=== PATIENT | male | born 1935 | race Caucasian/White ===

== ENCOUNTER 2016-11-06 14:43 | Emergency (ER) | payer MEDICARE, MEDICAID ==
[2016-11-06] MEDS ORDERED: NS 0.9% 1000 ML* 3,000 ML IV ONE (15:53)
[2016-11-06] MEDS ORDERED: Albuterol 2.5 MG/3 ML NEB.SOL* (0.083%) INH ONE (15:53)
[2016-11-06] MEDS ORDERED: Dexamethasone IV* 4 MG/ML 1 ML (4 MG) IV SLOW PU ONE (15:53)
[2016-11-06 16:16] LABS: PCO2 Arterial 45 mmHg (35-45)
--- NOTE | 2016-11-06 16:46 | RAD ---
INDICATION: Chest pain and shortness of breath. COMPARISON: Comparison is made with a prior chest x-ray study from October 16, 2014. TECHNIQUE: A portable view of the chest was obtained. FINDINGS: Cardiac and mediastinal contours appear to be within normal limits. The lungs are slightly hyperinflated and clear. No pleural effusion is seen. Note is made of multiple old bilateral rib fractures. IMPRESSION: NO EVIDENCE FOR ACUTE DISEASE.
[2016-11-06 17:07] LABS: Hematocrit 46 % (42-52); Hemoglobin 15.4 g/dl (14.0-18.0); Mean Corpuscular HGB Conc 34 g/dl (31-36); Mean Corpuscular Hemoglobin 31 pg (27-31); Mean Corpuscular Volume 93 fL (80-94); Mean Platelet Volume 8 um3 (7.4-10.4); Red Blood Count 4.97 10^6/ul (4.0-5.4); Red Cell Distribution Width 14 % (10.5-15); White Blood Count 9.5 10^3/ul (3.5-10.8)
[2016-11-06 17:22] LABS: BUN/Creatinine Ratio 13.3 (8-20); C Reactive Protein 1.13 mg/L (< 5.00); Calcium 9.7 mg/dL (8.6-10.3); EGFR African American 74.5 (>60); Globulin 3.3 g/dL (2-4); Potassium 4.2 mmol/L (3.5-5.0); Total Protein 7.3 g/dL (6.4-8.9)
[2016-11-06 17:24] LABS: Troponin I 0.02 ng/mL (<0.04)
[2016-11-06 18:42] VITALS: BP 162/80
--- NOTE | 2016-11-06 18:50 | ED ---
Nehemias Alvarado Alfonso, scribed for Eileen Go MD on 11/06/16 at 1559 . Shortness of Breath - HPI Summary HPI Summary: This patient is an 81 year old M presenting to [facility] c/o SOB since this morning. He states his "asthma has been bothering" him today and this was dyspnea at rest. Sx alleviated by albuterol nebulizer treatment prior to arrival. PMHX of COPD and asthma. Pt walked to his pharmacy without a problem today, then was in his doctor's office (Dr. Landa) and was given a neb for the dyspnea with improvement. Dr. Landa's office were concerned about bradycardia so he was sent by EMS for further evaluation. Pt denies chest pain, no calf pain , no abd pain. - History of Current Complaint Chief Complaint: EDShortnessOfBreath Hx Obtained From: Patient Onset/Duration: Sudden Onset, Lasting Hours - Earlier today, Resolved - After albuterol treatment. Timing: Constant Current Severity: Moderate Dyspnea At: Rest Aggrevating Factors: Nothing Alleviating Factors: EMS Tx Associated Signs & Symptoms: Cough (Nonproductive) - Allergy/Home Medications Allergies/Adverse Reactions: Allergies Allergy/AdvReac Type Severity Reaction Status Date / Time No Known Allergies Allergy Verified 10/16/14 20:09 PMH/Surg Hx/FS Hx/Imm Hx Previously Healthy: No Endocrine/Hematology History: Denies: Hx Sickle Cell Disease Cardiovascular History: Reports: Hx Hypertension - NO MEDS, Hx Valvular Heart Disease, Other Cardiovascular Problems/Disorders - HEART MURMUR, HAD FOR YRS Respiratory History: Reports: Hx Asthma - RESCUE INHALER, Hx Chronic Obstructive Pulmonary Disease (COPD) Denies: Other Respiratory Problems/Disorders GI History: Denies: Other GI Disorders History: Reports: Other Problems/Disorders - urinary retention, bladder growths Musculoskeletal History: Reports: Hx Arthritis Sensory History: Reports: Hx Cataracts - REMOVED Denies: Hx Contacts or Glasses, Hx Hearing Aid Opthamlomology History: Reports: Hx Cataracts - REMOVED Denies: Hx Contacts or Glasses Neurological History: Reports: Other Neuro Impairments/Disorders - OCCASIONAL DIZZINESS, NONE LATELY - Surgical History Surgery Procedure, Year, and Place: BLADDER RESECTION. 2013 BILATERAL EYES CATARACT EXTRACTION WITH IOL IMPLANTS, [facility]. LEFT INGUINAL HERNIA REPAIR, [facility] Hx Anesthesia Reactions: No - Immunization History Date of Tetanus Vaccine: Unk Date of Influenza Vaccine: Unk Infectious Disease History: Denies: Traveled Outside the [place] in Last 30 Days - Family History Known Family History: Positive: Other - Father had throat cancer - Social History Alcohol Use: None Substance Use Type: Reports: None Hx Tobacco Use: Yes Smoking Status (MU): Light Every Day Tobacco Smoker Amount Used/How Often: 1 PPD Length of Time of Smoking/Using Tobacco: 60 YEARS Have You Smoked in the Last Year: Yes Review of Systems Constitutional: Negative Eyes: Negative ENT: Negative Cardiovascular: Negative Positive: Shortness Of Breath, Cough Gastrointestinal: Negative Genitourinary: Negative Musculoskeletal: Negative Skin: Negative Neurological: Negative Psychological: Normal All Other Systems Reviewed And Are Negative: Yes Physical Exam Triage Information Reviewed: Yes Vital Signs On Initial Exam: Initial Vitals Temp Pulse Resp BP Pulse Ox 98.0 F 56 16 168/92 94 11/06/16 14:51 11/06/16 14:51 11/06/16 14:51 11/06/16 14:51 11/06/16 14:51 Vital Signs Reviewed: Yes Appearance: Positive: No Pain Distress, Well-Nourished, Ill-Appearing Skin: Positive: Warm, Dry Eyes: Positive: Conjunctiva Clear ENT: Positive: Normal ENT inspection Neck: Positive: Supple, Nontender, No Lymphadenopathy Respiratory/Lung Sounds: Positive: Decreased Breath Sounds, Other - Scattered wheezing Cardiovascular: Positive: RRR, Pulses are Symmetrical in both Upper and Lower Extremities, Other - Brisk capillary refill. Negative: Murmur Abdomen Description: Positive: Nontender, No Organomegaly, Soft. Negative: Distended, Guarding Bowel Sounds: Positive: Present Musculoskeletal: Positive: Strength/ROM Intact. Negative: Edema Left, Edema Right Neurological: Positive: Alert, Oriented to Person Place, Time, Other - Muscle tone normal. Negative: Facial Droop, Focal Deficit @, Slurred Speech Psychiatric: Positive: Normal - [place] Coma Scale Coma Scale Total: 15 Diagnostics - Vital Signs Vital Signs Temp Pulse Resp BP Pulse Ox 11/06/16 15:16 98.0 F 56 16 168/92 96 11/06/16 14:51 98.0 F 56 16 168/92 94 - Laboratory Lab Results: Lab Results 11/06/16 11/06/16 11/06/16 Range/Units 16:05 16:55 16:55 WBC 9.5 (3.5-10.8) 10^3/ul RBC 4.97 (4.0-5.4) 10^6/ul Hgb 15.4 (14.0-18.0) g/dl Hct 46 (42-52) % MCV 93 (80-94) fL MCH 31 (27-31) pg MCHC 34 (31-36) g/dl RDW 14 (10.5-15) % Plt Count 168 (150-450) 10^3/ul MPV 8 (7.4-10.4) um3 Neut % (Auto) 69.5 (38-83) % Lymph % (Auto) 13.2 L (25-47) % [place] % (Auto) 7.9 (1-9) % Eos % (Auto) 8.5 H (0-6) % Baso % (Auto) 0.9 (0-2) % Absolute Neuts (auto) 6.6 (1.5-7.7) 10^3/ul Absolute Lymphs (auto) 1.3 (1.0-4.8) 10^3/ul Absolute Monos (auto) 0.7 (0-0.8) 10^3/ul Absolute Eos (auto) 0.8 H (0-0.6) 10^3/ul Absolute Basos (auto) 0.1 (0-0.2) 10^3/ul Absolute Nucleated RBC 0 10^3/ul Nucleated RBC % 0 INR (Anticoag Therapy) (0.89-1.11) APTT (26.0-36.3) seconds ABG pH 7.41 (7.35-7.45) ABG pCO2 45 (35-45) mmHg ABG pO2 67 L (80-100) mmHg ABG HCO3 27.2 (19-31) mmol/L ABG O2 Saturation 95.5 (95-98) % ABG Base Excess 3.1 H (-2.0-2.0) Sodium 138 (133-145) mmol/L Potassium 4.2 (3.5-5.0) mmol/L Chloride 104 (101-111) mmol/L Carbon Dioxide 31 (22-32) mmol/L Anion Gap 3 (2-11) mmol/L BUN 16 (6-24) mg/dL Creatinine 1.20 H (0.67-1.17) mg/dL Est GFR ( Amer) 74.5 (>60) Est GFR (Non-Af Amer) 58.0 (>60) BUN/Creatinine Ratio 13.3 (8-20) Glucose 101 H (70-100) mg/dL Lactic Acid (0.5-2.0) mmol/L Calcium 9.7 (8.6-10.3) mg/dL Total Bilirubin 1.00 (0.2-1.0) mg/dL AST 14 (13-39) U/L ALT 11 (7-52) U/L Alkaline Phosphatase 60 (34-104) U/L Total Creatine Kinase 35 (10-223) U/L CK-MB (CK-2) 2.0 (0.6-6.3) ng/mL Troponin I 0.02 (<0.04) ng/mL C-Reactive Protein 1.13 (< 5.00) mg/L B-Natriuretic Peptide ( - 100) pg/mL Total Protein 7.3 (6.4-8.9) g/dL Albumin 4.0 (3.2-5.2) g/dL Globulin 3.3 (2-4) g/dL Albumin/Globulin Ratio 1.2 (1-3) 11/06/16 11/06/16 11/06/16 Range/Units 16:55 16:55 16:55 WBC (3.5-10.8) 10^3/ul RBC (4.0-5.4) 10^6/ul Hgb (14.0-18.0) g/dl Hct (42-52) % MCV (80-94) fL MCH (27-31) pg MCHC (31-36) g/dl RDW (10.5-15) % Plt Count (150-450) 10^3/ul MPV (7.4-10.4) um3 Neut % (Auto) (38-83) % Lymph % (Auto) (25-47) % [place] % (Auto) (1-9) % Eos % (Auto) (0-6) % Baso % (Auto) (0-2) % Absolute Neuts (auto) (1.5-7.7) 10^3/ul Absolute Lymphs (auto) (1.0-4.8) 10^3/ul Absolute Monos (auto) (0-0.8) 10^3/ul Absolute Eos (auto) (0-0.6) 10^3/ul Absolute Basos (auto) (0-0.2) 10^3/ul Absolute Nucleated RBC 10^3/ul Nucleated RBC % INR (Anticoag Therapy) 1.20 H (0.89-1.11) APTT 36.9 H (26.0-36.3) seconds ABG pH (7.35-7.45) ABG pCO2 (35-45) mmHg ABG pO2 (80-100) mmHg ABG HCO3 (19-31) mmol/L ABG O2 Saturation (95-98) % ABG Base Excess (-2.0-2.0) Sodium (133-145) mmol/L Potassium (3.5-5.0) mmol/L Chloride (101-111) mmol/L Carbon Dioxide (22-32) mmol/L Anion Gap (2-11) mmol/L BUN (6-24) mg/dL Creatinine (0.67-1.17) mg/dL Est GFR ( Amer) (>60) Est GFR (Non-Af Amer) (>60) BUN/Creatinine Ratio (8-20) Glucose (70-100) mg/dL Lactic Acid 0.9 (0.5-2.0) mmol/L Calcium (8.6-10.3) mg/dL Total Bilirubin (0.2-1.0) mg/dL AST (13-39) U/L ALT (7-52) U/L Alkaline Phosphatase (34-104) U/L Total Creatine Kinase (10-223) U/L CK-MB (CK-2) (0.6-6.3) ng/mL Troponin I (<0.04) ng/mL C-Reactive Protein (< 5.00) mg/L B-Natriuretic Peptide 38 ( - 100) pg/mL Total Protein (6.4-8.9) g/dL Albumin (3.2-5.2) g/dL Globulin (2-4) g/dL Albumin/Globulin Ratio (1-3) Result Diagrams: 11/06/16 16:55 11/06/16 16:55 Lab Statement: Any lab studies that have been ordered have been reviewed, and results considered in the medical decision making process. - Radiology CXR Xray Interpretation: No Acute Changes - NO EVIDENCE FOR ACUTE DISEASE Radiology Interpretation Completed By: Radiologist Re-Evaluation - Re-Evaluation First Eval Re-Evaluation Time: 17:52 Change: Improved Comment: Doing fine. No respiratory distress. Wants to go home. Second Eval Re-Evaluation Time: 18:14 Change: Improved Comment: Discussed results of labs and D/C plan with patient. Course/Dx - Course Assessment/Plan: Pt is an 81 y/o M c/o SOB characterized as dyspnea at rest. Sx alleviated by albuterol nebulizer treatment prior to arrival. Creatinine 1.60. PMHX of COPD and asthma. CXR reveals no acute findings. Pt received Albuterol, Decadron IV and NS in the course of the ED. Troponin is neg and EKG show SR, 62 , PAC's, nl AVIVCT, no acute changes, no change from prior. Pt will be D/C to home with Dx of bradycardia and COPD. Pt understands and agrees and will follow up with Dr. Landa. Allergies noted. Pt medications reviewed this visit. - Diagnoses Provider Diagnoses: COPD (chronic obstructive pulmonary disease), Bradycardia Discharge - Discharge Plan Condition: Stable Disposition: HOME Patient Education Materials: COPD (Chronic Obstructive Pulmonary Disease) (ED) , Bradycardia (ED) Referrals: Chago Landa MD [Primary Care Provider] - 3 Days Additional Instructions: RETURN TO ED FOR ANY NEW OR WORSENING SYMPTOMS. The documentation as recorded by the Nehemias alva Alfonso accurately reflects the service I personally performed and the decisions made by , Eileen Go MD.
== END 2016-11-06 18:41 | disposition home or self-care (01) ==
LOC: ED 14:43
DX: J44.9 Chronic obstructive pulmonary disease, unspecified (principal); R00.1 Bradycardia, unspecified; R05 Cough; I10 Essential (primary) hypertension; Z98.42 Cataract extraction status, left eye; Z98.41 Cataract extraction status, right eye; Z96.1 Presence of intraocular lens; F17.210 Nicotine dependence, cigarettes, uncomplicated
CPT/HCPCS: 36415; 36600; 71010; 80053; 82550; 82553; 82803; 83605; 83880; 84484; 85025; 85610; 85730; 86140; 93005; 94640; 96374; 99282; J1100

== ENCOUNTER → 2016-11-15 16:34 | Emergency (ER) | payer MEDICARE, MEDICAID ==
[~2016-11-15 16:34] MED LIST: Famotidine IV* 10 MG/ML 2 ML (20 mg) IV SLOW PU ONE; Meclizine TAB* 12.5 MG PO ONE; Ondansetron INJ* 2 MG/ML VIAL IV ONE
[2016-11-15 17:05] LABS: Hematocrit 46 % (42-52); Hemoglobin 15.2 g/dl (14.0-18.0); Mean Corpuscular HGB Conc 33 g/dl (31-36); Mean Corpuscular Hemoglobin 31 pg (27-31); Mean Corpuscular Volume 92 fL (80-94); Mean Platelet Volume 8 um3 (7.4-10.4); Red Blood Count 4.96 10^6/ul (4.0-5.4); Red Cell Distribution Width 14 % (10.5-15); White Blood Count 5.2 10^3/ul (3.5-10.8)
[2016-11-15 17:17] LABS: ALT 13 U/L (7-52); AST 13 U/L (13-39); Albumin 3.8 g/dL (3.2-5.2); Alkaline Phosphatase 62 U/L (34-104); Anion Gap 5 mmol/L (2-11); BUN/Creatinine Ratio 10.6 (8-20); Blood Urea Nitrogen 13 mg/dL (6-24); C Reactive Protein 5.61 mg/L (< 5.00); CO2 Carbon Dioxide 25 mmol/L (22-32); Calcium 9.4 mg/dL (8.6-10.3); Chloride 103 mmol/L (101-111); Creatine Kinase 21 U/L (10-223); EGFR African American 72.5 (>60); EGFR Non-African American 56.3 (>60); Globulin 3.2 g/dL (2-4); Glucose 142 mg/dL (70-100); Potassium 3.9 mmol/L (3.5-5.0); Sodium 133 mmol/L (133-145)
[2016-11-15 17:19] LABS: Troponin I 0.03 ng/mL (<0.04)
[2016-11-15 17:31] LABS: Alcohol < 10 mg/dL (<10)
[2016-11-15 17:41] LABS: TSH (Thyroid Stimulating Horm) 0.66 mcIU/mL (0.34-5.60)
--- NOTE | 2016-11-15 17:58 | RAD ---
INDICATION: Dizziness COMPARISON: CT of the brain dated September 21, 2012 TECHNIQUE: Contiguous axial sections of the brain were obtained from the skull base to the vertex without contrast. FINDINGS: The ventricles, cisterns and sulci exhibit symmetric involutional changes similar in appearance to the previous CT examination. There is mild to moderate periventricular and subcortical white matter hypoattenuation most consistent with chronic microvascular disease and similar in appearance to the previous CT examination. Otherwise the garcia-white matter differentiation is adequately maintained and there is no sulcal effacement. No significant focal abnormality or mass effect is present. There is no evidence for intracranial hemorrhage. No significant focal osseous abnormality is present. There is mild paranasal sinus mucosal thickening of the visualized right maxillary sinus. The mastoid air cells are adequately aerated. IMPRESSION: Stable age-appropriate chronic findings as described above.
--- NOTE | 2016-11-15 18:33 | RAD ---
INDICATION: Dizziness and nausea COMPARISON: Similar chest x-ray dated November 06, 2016 TECHNIQUE: PA and lateral views of the chest were obtained. FINDINGS: The heart and mediastinum are normal in size and contour. The lungs are grossly clear. There is no evidence of large pleural effusion. Healed rib fractures are noted on the right side similar in appearance to the previous chest x-ray. There is no radiographic evidence of free air beneath the diaphragm IMPRESSION: No radiographic evidence of acute cardiopulmonary disease.
[2016-11-15 18:46] VITALS: BP 140/64
--- NOTE | 2016-11-16 12:18 | ED ---
I, Oh,Soelzbieta, scribed for Manpreet Joel MD on 11/15/16 at 1649 . Complex/Multi-Sys Presentation - HPI Summary HPI Summary: This 81 y/o male presents to ED for dizziness since this morning. Positive n/v and "sour stomach". Change in position makes dizziness worse. Temperature of 101.1 F is noted at triage. Pt is reported to be noncompliant with his medications. PMHx includes asthma, COPD, and bladder infection. Pt is currently on unspecified abx for unknown infection. Pt also reports that some growth was removed from his left sided neck. - History Of Current Complaint Time Seen by Provider: 11/15/16 16:36 Hx Obtained From: Patient, Medical Records Onset/Duration: Sudden Onset, Resolved Timing: Intermittent, Lasting:, Seconds Associated Signs And Symptoms: Positive: Nausea, Vomiting, Abdominal Pain - "sour stomach", Fever - Allergies/Home Medications Allergies/Adverse Reactions: Allergies Allergy/AdvReac Type Severity Reaction Status Date / Time No Known Allergies Allergy Verified 11/15/16 16:44 PMH/Surg Hx/FS Hx/Imm Hx Endocrine/Hematology History: Denies: Hx Sickle Cell Disease Cardiovascular History: Reports: Hx Hypertension - NO MEDS, Hx Valvular Heart Disease, Other Cardiovascular Problems/Disorders - HEART MURMUR, HAD FOR YRS Respiratory History: Reports: Hx Asthma - RESCUE INHALER, Hx Chronic Obstructive Pulmonary Disease (COPD) Denies: Other Respiratory Problems/Disorders GI History: Denies: Other GI Disorders History: Reports: Other Problems/Disorders - urinary retention, bladder growths Musculoskeletal History: Reports: Hx Arthritis Sensory History: Reports: Hx Cataracts - REMOVED Denies: Hx Contacts or Glasses, Hx Hearing Aid Opthamlomology History: Reports: Hx Cataracts - REMOVED Denies: Hx Contacts or Glasses Neurological History: Reports: Other Neuro Impairments/Disorders - OCCASIONAL DIZZINESS, NONE LATELY - Surgical History Surgery Procedure, Year, and Place: BLADDER RESECTION. 2013 BILATERAL EYES CATARACT EXTRACTION WITH IOL IMPLANTS, [facility]. LEFT INGUINAL HERNIA REPAIR, [facility] Hx Anesthesia Reactions: No - Immunization History Date of Tetanus Vaccine: Unk Date of Influenza Vaccine: Unk - Family History Known Family History: Positive: Other - Father had throat cancer - Social History Alcohol Use: None Hx Substance Use: No Substance Use Type: Reports: None Hx Tobacco Use: Yes Smoking Status (MU): Light Every Day Tobacco Smoker Amount Used/How Often: 1 PPD Length of Time of Smoking/Using Tobacco: 60 YEARS Have You Smoked in the Last Year: Yes Review of Systems Positive: Fever - Temperature of 101.1 F noted at triage Positive: Abdominal Pain - "sour stomach", Vomiting, Nausea All Other Systems Reviewed And Are Negative: Yes Physical Exam - Summary Physical Exam Summary: VITAL SIGNS: Reviewed. GENERAL: Patient is a well-developed and fragile MALE who is lying comfortable in the stretcher. Patient is not in any acute respiratory distress. BAD HYGIENE. HEAD AND FACE: No signs of trauma. No ecchymosis, hematomas or skull depressions. No sinus tenderness. EYES: PERRLA, EOMI x 2, No injected conjunctiva, no nystagmus. EARS: Hearing grossly intact. Ear canals and tympanic membranes are within normal limits. MOUTH: Oropharynx within normal limits. NECK: Supple, trachea is midline, no adenopathy, no JVD, no carotid bruit, no c- spine tenderness, neck with full ROM. CHEST: Symmetric, no tenderness at palpation LUNGS: Clear to auscultation bilaterally. No wheezing or crackles. CVS: Regular rate and rhythm, S1 and S2 present, no murmurs or gallops appreciated. ABDOMEN: Soft, non-tender. No signs of distention. No rebound no guarding, and no masses palpated. Bowel sounds are normal. EXTREMITIES: FROM in all major joints, no edema, no cyanosis or clubbing. NEURO: Alert and oriented x 3. No acute neurological deficits. Speech is normal and follows commands. SKIN: Dry and warm. Sutured incision noted at left side of neck. Pt reports removal procedure of tumor. Triage Information Reviewed: Yes Vital Signs On Initial Exam: Initial Vitals Temp Pulse Resp BP Pulse Ox 101.1 F 60 16 180/90 98 11/15/16 16:38 11/15/16 16:38 11/15/16 16:38 11/15/16 16:38 11/15/16 16:38 Vital Signs Reviewed: Yes Diagnostics - Vital Signs Vital Signs Temp Pulse Resp BP Pulse Ox 11/15/16 19:15 98.0 F 63 24 140/64 11/15/16 18:30 63 25 140/64 93 11/15/16 18:00 145/69 11/15/16 17:54 87 155/59 06/18/17 17:50 66 24 155/59 92 11/15/16 17:48 60 135/78 93 11/15/16 17:46 147/72 11/15/16 17:30 61 137/53 89 11/15/16 17:00 80 140/94 94 11/15/16 16:45 18 11/15/16 16:42 91 94 11/15/16 16:41 101.1 F 70 18 166/74 95 11/15/16 16:40 166/74 11/15/16 16:38 101.1 F 60 16 180/90 98 - Laboratory Lab Results: Lab Results 11/15/16 11/15/16 11/15/16 Range/Units 16:55 16:55 16:55 WBC 5.2 (3.5-10.8) 10^3/ul RBC 4.96 (4.0-5.4) 10^6/ul Hgb 15.2 (14.0-18.0) g/dl Hct 46 (42-52) % MCV 92 (80-94) fL MCH 31 (27-31) pg MCHC 33 (31-36) g/dl RDW 14 (10.5-15) % Plt Count 135 L (150-450) 10^3/ul MPV 8 (7.4-10.4) um3 Neut % (Auto) 79.6 (38-83) % Lymph % (Auto) 9.1 L (25-47) % [place] % (Auto) 9.1 H (1-9) % Eos % (Auto) 1.0 (0-6) % Baso % (Auto) 1.2 (0-2) % Absolute Neuts (auto) 4.1 (1.5-7.7) 10^3/ul Absolute Lymphs (auto) 0.5 L (1.0-4.8) 10^3/ul Absolute Monos (auto) 0.5 (0-0.8) 10^3/ul Absolute Eos (auto) 0.1 (0-0.6) 10^3/ul Absolute Basos (auto) 0.1 (0-0.2) 10^3/ul Absolute Nucleated RBC 0 10^3/ul Nucleated RBC % 0 Sodium 133 (133-145) mmol/L Potassium 3.9 (3.5-5.0) mmol/L Chloride 103 (101-111) mmol/L Carbon Dioxide 25 (22-32) mmol/L Anion Gap 5 (2-11) mmol/L BUN 13 (6-24) mg/dL Creatinine 1.23 H (0.67-1.17) mg/dL Est GFR ( Amer) 72.5 (>60) Est GFR (Non-Af Amer) 56.3 (>60) BUN/Creatinine Ratio 10.6 (8-20) Glucose 142 H (70-100) mg/dL Lactic Acid 1.2 (0.5-2.0) mmol/L Calcium 9.4 (8.6-10.3) mg/dL Magnesium 2.0 (1.9-2.7) mg/dL Total Bilirubin 1.10 H (0.2-1.0) mg/dL AST 13 (13-39) U/L ALT 13 (7-52) U/L Alkaline Phosphatase 62 (34-104) U/L Total Creatine Kinase 21 (10-223) U/L Troponin I 0.03 (<0.04) ng/mL C-Reactive Protein 5.61 H (< 5.00) mg/L B-Natriuretic Peptide ( - 100) pg/mL Total Protein 7.0 (6.4-8.9) g/dL Albumin 3.8 (3.2-5.2) g/dL Globulin 3.2 (2-4) g/dL Albumin/Globulin Ratio 1.2 (1-3) TSH 0.66 (0.34-5.60) mcIU/mL Serum Alcohol < 10 (<10) mg/dL 11/15/ Range/Units 16:55 WBC (3.5-10.8) 10^3/ul RBC (4.0-5.4) 10^6/ul Hgb (14.0-18.0) g/dl Hct (42-52) % MCV (80-94) fL MCH (27-31) pg MCHC (31-36) g/dl RDW (10.5-15) % Plt Count (150-450) 10^3/ul MPV (7.4-10.4) um3 Neut % (Auto) (38-83) % Lymph % (Auto) (25-47) % [place] % (Auto) (1-9) % Eos % (Auto) (0-6) % Baso % (Auto) (0-2) % Absolute Neuts (auto) (1.5-7.7) 10^3/ul Absolute Lymphs (auto) (1.0-4.8) 10^3/ul Absolute Monos (auto) (0-0.8) 10^3/ul Absolute Eos (auto) (0-0.6) 10^3/ul Absolute Basos (auto) (0-0.2) 10^3/ul Absolute Nucleated RBC 10^3/ul Nucleated RBC % Sodium (133-145) mmol/L Potassium (3.5-5.0) mmol/L Chloride (101-111) mmol/L Carbon Dioxide (22-32) mmol/L Anion Gap (2-11) mmol/L BUN (6-24) mg/dL Creatinine (0.67-1.17) mg/dL Est GFR ( Amer) (>60) Est GFR (Non-Af Amer) (>60) BUN/Creatinine Ratio (8-20) Glucose (70-100) mg/dL Lactic Acid (0.5-2.0) mmol/L Calcium (8.6-10.3) mg/dL Magnesium (1.9-2.7) mg/dL Total Bilirubin (0.2-1.0) mg/dL AST (13-39) U/L ALT (7-52) U/L Alkaline Phosphatase (34-104) U/L Total Creatine Kinase (10-223) U/L Troponin I (<0.04) ng/mL C-Reactive Protein (< 5.00) mg/L B-Natriuretic Peptide 49 ( - 100) pg/mL Total Protein (6.4-8.9) g/dL Albumin (3.2-5.2) g/dL Globulin (2-4) g/dL Albumin/Globulin Ratio (1-3) TSH (0.34-5.60) mcIU/mL Serum Alcohol (<10) mg/dL Result Diagrams: 11/15/16 16:55 11/15/16 16:55 Lab Statement: Any lab studies that have been ordered have been reviewed, and results considered in the medical decision making process. - Radiology CXR Xray Interpretation: No Acute Changes Radiology Interpretation Completed By: Radiologist - CT Brain CT Interpretation: No Acute Changes - Stable age-appropriate chronic findings as described above. CT Interpretation Completed By: Radiologist Re-Evaluation - Re-Evaluation First Eval Re-Evaluation Time: 18:40 Comment: in room to update pt on bloodwork and imaging results. Complex Multi-Symp Course/Dx Assessment/Plan: This 81 y/o male presents to ED for dizziness since this morning. Positive n/v and "sour stomach". Change in position makes dizziness worse. Temperature of 101.1 F is noted at triage. Pt is reported to be noncompliant with his medications. PMHx includes asthma, COPD, and bladder infection. Pt is currently on unspecified abx for unknown infection. Pt also reports that some growth was removed from his left sided neck. Bloodwork is noted with chronic renal failure, elevated blood glucose of 142, total bilirubin of 1.10, and mildly elevated CRP of 5.61. Negative serum EtOH. CT brain indicates stable age appropriate changes. CXR is nml. Pt remained stable during ED course. Pt was given IV fluid, Pepcid for GERD and antivert for dizziness. After medications, pt's symptoms have improved. I ambulated pt with a walker, and pt ambulated well. He declined admission or half-way placement. He report he wants to go home. He will speak with his son to stay with him at his home. He is hemodynamically stable and A&Ox3. He is agreeable to discharge with PCP f/u plan. I discussed all the findings and test results with the patient. Patient was instructed to return to the emergency room immediately if any of the symptoms return or worsens. Patient understands and agrees. Plan of care was discussed with the patient and patient understands and agrees with the plan of care. All questions were answered at patient satisfaction. There were no further complaints or concerns. Patient is alert and oriented x 3. Patient vital signs are stable. Patient is to follow up with primary care physician in the next 2 to 3 days. Patient understands and agrees. - Diagnoses Differential Diagnoses/HQI/PQRI: Other - GERD, Gastrenteritis, CVA, TIA Provider Diagnoses: GERD (gastroesophageal reflux disease), Dizziness Discharge - Discharge Plan Condition: Stable Disposition: HOME Patient Education Materials: Gastroesophageal Reflux Disease (ED), Dizziness ( ED) Referrals: Chago Landa MD [Primary Care Provider] - 2 Days The documentation as recorded by the Juan Ramon alva Soohyun accurately reflects the service I personally performed and the decisions made by , Manpreet Joel MD.
== END | disposition home or self-care (01) ==
LOC: ED 16:34
DX: K21.9 Gastro-esophageal reflux disease without esophagitis (principal); R42 Dizziness and giddiness; R10.9 Unspecified abdominal pain; R50.9 Fever, unspecified; R11.2 Nausea with vomiting, unspecified; F17.210 Nicotine dependence, cigarettes, uncomplicated
CPT/HCPCS: 36415; 70450; 71020; 80053; 80320; 82550; 83605; 83735; 83880; 84443; 84484; 85025; 86140; 87040; 93005; 96374; 96375; 99282; A9270-GY; G0480; J2405

== ENCOUNTER 2016-11-16 11:59 | Inpatient (IN) | payer MEDICARE, MEDICAID ==
[2016-11-16] MEDS ORDERED: NS 0.9% 1000 ML* 1,000 ML IV ONE (12:11)
[2016-11-16 12:28] LABS: Hematocrit 50 % (42-52); Hemoglobin 17.1 g/dl (14.0-18.0); Mean Corpuscular HGB Conc 34 g/dl (31-36); Mean Corpuscular Hemoglobin 31 pg (27-31); Mean Corpuscular Volume 92 fL (80-94); Mean Platelet Volume 8 um3 (7.4-10.4); Red Blood Count 5.48 10^6/ul (4.0-5.4); Red Cell Distribution Width 14 % (10.5-15); White Blood Count 6.1 10^3/ul (3.5-10.8)
[2016-11-16 12:52] LABS: Albumin 3.9 g/dL (3.2-5.2); BUN/Creatinine Ratio 13.3 (8-20); Calcium 9.7 mg/dL (8.6-10.3); EGFR African American 57.6 (>60); EGFR Non-African American 44.8 (>60); Globulin 3.3 g/dL (2-4); Magnesium 2.1 mg/dL (1.9-2.7); Potassium 4.2 mmol/L (3.5-5.0); Total Bilirubin 1.5 mg/dL (0.2-1.0); Total Protein 7.2 g/dL (6.4-8.9)
[2016-11-16 12:56] LABS: Troponin I 0.05 ng/mL (<0.04)
[2016-11-16 13:28] LABS: TSH (Thyroid Stimulating Horm) 0.48 mcIU/mL (0.34-5.60)
--- NOTE | 2016-11-16 14:22 | RAD ---
Indication: Fall. CT of the brain was performed without IV contrast. Comparison is made with previous exam dated November 15, 2016. Ventricular structures are midline. No midline shift is noted. Central and cortical atrophy is noted. No intracranial mass or hemorrhage is noted. Periventricular lucency consistent with chronic ischemic White matter change is noted. Mastoid air cells and paranasal sinuses are otherwise unremarkable. IMPRESSION: Chronic ischemic White matter change. There is no evidence of intracranial mass or hemorrhage. No changes noted since November 15, 2016.
[2016-11-16] MEDS ORDERED: NS 0.9% 1000 ML* 1,000 ML IV SCH (14:45)
--- NOTE | 2016-11-16 15:08 | ADMNOTE ---
Subjective Date of Service: 11/16/16 Interval History: ADMISSION HISTORY AND PHYSICAL EXAM: Allergies Allergy/AdvReac Type Severity Reaction Status Date / Time No Known Allergies Allergy Verified 11/15/16 16:44 Home Medications Medication Instructions Recorded Confirmed Type Albuterol 2.5MG/3ML (0.083%)* 2.5 mg INH Q6H PRN 11/16/16 11/16/16 History [Ventolin 2.5 MG/3 ML NEB.MELINA*] Albuterol Sulfate [Proair 1 puff INH Q4HR PRN 11/16/16 11/16/16 History Respiclick] Aspirin EC Low Dose* [Ecotrin EC 81 mg PO DAILY 11/16/16 11/16/16 History Low Dose 81 MG*] Atorvastatin* [Lipitor*] 20 mg PO DAILY 11/16/16 11/16/16 History Cholecalciferol TAB* [Vitamin D 1,000 unit PO DAILY 11/16/16 11/16/16 History TAB*] Cholecalciferol [Vitamin D] 1,000 unit PO DAILY 11/16/16 11/16/16 History Finasteride TAB* [Proscar TAB*] 5 mg PO DAILY 11/16/16 11/16/16 History Fluticasone NASAL SPRAY 50MCG* 2 spray BOTH NARES DAILY 11/16/16 11/16/16 History [Flonase NASAL SPRAY 50MCG*] Ipratropium HFA INHALER(NF) 2 puff INH Q6H PRN 11/16/16 11/16/16 History [Atrovent Hfa Inhaler(NF)] HPI: Patient felt weak yesterday and went to the ED. He signed out AMA and went home on the bus. He woke up in his bed this AM. His hx is very vague and not consistent. He states he couldn't get up but did get out of bed. It is not clear if he lost consciousness. I think his landlord called 911. He did not eat breakfast this AM or take any of his meds. He denies pain. He states he is hungry. Family History: Findings - Father had breast ca, HTN, PUD. Both parents had heart disease. Social History: Findings - Quit smoking 3 yrs ago. No alcohol abuse. Lives alone. SDM is his son Dany in [place]. Past Medical History: Findings - TURP, L IHR, COPD, hx HTN, valvular heart disease. Review of Systems - Measurements Intake and Output: Intake and Output Last 24 Hours 11/14/16 11/15/16 11/16/16 11/17/16 06:59 06:59 06:59 06:59 Weight 150 lb - Review of Systems Constitutional Symptoms: Negative: Weight Gain, Weight Loss, Weakness, Fatigue, Fever, Night Sweats, Unexplained Falls, Other Dermatology: Positive: Normal HEENT: Positive: Normal Eyes: Positive: Normal Thyroid: Positive: Normal Pulmonary: Positive: COPD Cardiology: Positive: Syncope Gastroenterology: Positive: Normal Genital - Urinary: Positive: Normal Genitourinary - Male: Positive: Prostatism Endocrinology: Positive: Normal Hematologic/Lymphatic: Negative: Anemia, Easy Brusing, Hx Leukemia, Hx Lymphoma, Use of Anticoagulant, Use of Antiplatelet Drugs, Other Neurology: Positive: Normal Psychiatry: Positive: Normal Allergic/Immunologic: Negative: Hx Anaphylaxis, Hx Angioedema, Hx Environmental, Hx Seasonal, Athsma, Hx HIV, Immunocompromise, Swollen Glands LymphNodes, Other Objective Active Medications: Sodium Chloride (Ns 0.9% 1000 Ml*) 1,000 mls @ 75 mls/hr IV PER RATE ARAM Stop: 11/17/16 04:04 Vital Signs 11/16/16 11/16/16 11/16/16 12:01 12:05 12:30 Temperature 98.3 F Pulse Rate 68 65 Respiratory 16 29 26 Rate Blood Pressure 153/71 153/71 132/55 (mmHg) O2 Sat by Pulse 97 97 Oximetry 11/16/16 11/16/16 11/16/16 13:00 13:30 14:00 Temperature Pulse Rate 64 61 62 Respiratory 28 26 25 Rate Blood Pressure 132/53 137/58 (mmHg) O2 Sat by Pulse 98 98 92 Oximetry Oxygen Devices in Use Now: None Appearance: Alert, supine on ED stretcher. Neutral affect. Looks comfortable. Eyes: No Scleral Icterus, - - BL ectropions upper and lower lids Ears/Nose/Mouth/Throat: Clear Oropharnyx, Mucous Membranes Moist Neck: NL Appearance and Movements; NL JVP, No Thyroid Enlargement, Masses Respiratory: Symmetrical Chest Expansion and Respiratory Effort, Clear to Auscultation, Clear to Percussion Cardiovascular: NL Sounds; No Murmurs; No JVD, RRR, No Edema, - Extremities: No Edema, No Clubbing, Cyanosis, - Skin: No Rash or Ulcers, No Nodules or Sclerosis, - Neurological: NL Sensation, - - Gave his age as 82, could not name the present month. No tremor. Moves all limbs. Result Diagrams: 11/16/16 12:18 11/16/16 12:18 Assess/Plan/Problems-Billing Assessment: - Patient Problems (1) Weakness Current Visit: Yes Status: Acute Code(s): R53.1 - WEAKNESS SNOMED Code(s) : 54850053 Comment: Not clear if syncope, orthostasis. Admit to tele, repeat troponin. Orthostatic signs and echo ordered. Note nl TSH. (2) Dementia Current Visit: Yes Status: Acute Code(s): F03.90 - UNSPECIFIED DEMENTIA WITHOUT BEHAVIORAL DISTURBANCE SNOMED Code(s): 07561164 Comment: Very poor historian and couldn't name the present month. At least early dementia. (3) COPD (chronic obstructive pulmonary disease) Current Visit: Yes Status: Acute Code(s): J44.9 - CHRONIC OBSTRUCTIVE PULMONARY DISEASE, UNSPECIFIED SNOMED Code(s): 95694145 Comment: Stable. Duoneb PRN ordered. (4) CAD (coronary artery disease) Current Visit: Yes Status: Acute Code(s): I25.10 - ATHSCL HEART DISEASE OF [place] CORONARY ARTERY W/O ANG PCTRS SNOMED Code(s): 38243923 Comment: Cardiac cath 2006: Mod disease LAD.
[2016-11-16] MEDS ORDERED: Ipratropium HFA INHALER(NF) (ALTERNATIVE = NEBS) INH PRN (15:25)
[2016-11-16] MEDS ORDERED: Albuterol 2.5 MG/3 ML NEB.SOL* (0.083%) INH PRN (15:25)
[2016-11-16] MEDS ORDERED: Albuterol/Ipratropium NEB.SOL* Albuterol 2.5 MG/Ipratropium 0.5 MG 3 ML INH PRN (15:41)
[2016-11-16 15:54] LABS: Budding Yeast Present (Absent); Urine Bacteria Absent (Absent); Urine Bilirubin Negative (Negative); Urine Glucose Negative (Negative); Urine Nitrite Negative (Negative)
[2016-11-16] MEDS: Enoxaparin(*) 40 MG/0.4 ML SYR SUBCUT SCH (16:00)
[2016-11-16] MEDS: Acetaminophen TAB* 325 MG PO PRN (21:30)
[2016-11-17] MEDS: Cholecalciferol TAB* 1000 UNITS PO SCH (08:25)
[2016-11-17] MEDS: Aspirin EC Low Dose* 81 MG TAB.EC PO SCH (08:25)
[2016-11-17] MEDS: Finasteride TAB* 5 MG PO SCH (08:26)
[2016-11-17] MEDS: Fluticasone NASAL SPRAY 50MCG* 16 gm SPRAY BTL BOTH NARES SCH (08:26)
[2016-11-17] MEDS: Atorvastatin* 20 MG TAB PO SCH (08:26)
--- NOTE | 2016-11-17 12:52 | PN ---
Subjective Date of Service: 11/17/16 Interval History: No new c/o. PT noted R facial droop. Family History: Findings - Father had breast ca, HTN, PUD. Both parents had heart disease. Social History: Findings - Quit smoking 3 yrs ago. No alcohol abuse. Lives alone. SDM is his son Dany in [place]. Past Medical History: Findings - TURP, L IHR, COPD, hx HTN, valvular heart disease. Objective Active Medications: Acetaminophen (Tylenol Tab*) 650 mg PO Q6H PRN PRN Reason: FEVER/PAIN Last Admin: 11/16/16 21:30 Dose: 650 mg Albuterol/Ipratropium (Duoneb (Albuterol 2.5 Mg/Ipratropium 0.5 Mg)) 1 neb INH Q6H PRN PRN Reason: SHORTNESS OF BREATH Aspirin (Aspirin Ec Low Dose*) 81 mg PO DAILY [facility] Last Admin: 11/17/16 08:25 Dose: 81 mg Atorvastatin Calcium (Lipitor*) 20 mg PO DAILY [facility] Last Admin: 11/17/16 08:26 Dose: 20 mg Cholecalciferol (Vitamin D Tab*) 1,000 units PO DAILY [facility] Last Admin: 11/17/16 08:25 Dose: 1,000 units Enoxaparin Sodium (Lovenox(*)) 40 mg SUBCUT Q24H [facility] Last Admin: 11/16/16 16:00 Dose: 40 mg Finasteride (Proscar Tab*) 5 mg PO DAILY [facility] Last Admin: 11/17/16 08:26 Dose: 5 mg Fluticasone Propionate (Flonase Nasal [place] 50mcg*) 2 spray BOTH NARES DAILY [facility] Last Admin: 11/17/16 08:26 Dose: 2 spray Vital Signs 11/16/16 11/16/16 11/16/16 15:00 15:45 17:45 Temperature 98.3 F Pulse Rate 60 64 73 Respiratory 27 26 Rate Blood Pressure 129/76 (mmHg) O2 Sat by Pulse 96 95 Oximetry 11/16/16 11/16/16 11/16/16 20:30 22:47 22:48 Temperature 102.6 F Pulse Rate 69 80 Respiratory Rate Blood Pressure 125/60 137/64 (mmHg) O2 Sat by Pulse Oximetry 11/16/16 11/17/16 11/17/16 23:04 00:18 03:51 Temperature 100.0 F 98.5 F 97.9 F Pulse Rate 51 51 Respiratory 16 16 Rate Blood Pressure 100/44 99/48 (mmHg) O2 Sat by Pulse 92 95 Oximetry 11/17/16 11/17/16 11/17/16 06:00 06:19 07:50 Temperature 97.7 F 97.9 F 98.4 F Pulse Rate 51 63 Respiratory 16 26 Rate Blood Pressure 99/48 121/57 (mmHg) O2 Sat by Pulse 95 92 Oximetry 11/17/16 08:00 Temperature Pulse Rate Respiratory 16 Rate Blood Pressure (mmHg) O2 Sat by Pulse Oximetry Oxygen Devices in Use Now: None Appearance: Alert, head partly up in bed. In fair spirits. Looks comfortable. Eyes: No Scleral Icterus Respiratory: Symmetrical Chest Expansion and Respiratory Effort, Clear to Auscultation, Clear to Percussion Cardiovascular: NL Sounds; No Murmurs; No JVD, RRR, No Edema, - Extremities: No Edema, No Clubbing, Cyanosis, - Skin: No Rash or Ulcers, No Nodules or Sclerosis, - Neurological: Alert and Oriented x 3, NL Sensation - R nasolabial fold flattened. 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 Needed assist of PT to ambulate, will need STR. (2) Dementia Current Visit: Yes Status: Acute Code(s): F03.90 - UNSPECIFIED DEMENTIA WITHOUT BEHAVIORAL DISTURBANCE SNOMED Code(s): 81832077 Comment: Very poor historian and couldn't name the present month. At least early dementia. (3) COPD (chronic obstructive pulmonary disease) Current Visit: Yes Status: Acute Code(s): J44.9 - CHRONIC OBSTRUCTIVE PULMONARY DISEASE, UNSPECIFIED SNOMED Code(s): 70548630 Comment: Stable. Duoneb PRN ordered. (4) CAD (coronary artery disease) Current Visit: Yes Status: Acute Code(s): I25.10 - ATHSCL HEART DISEASE OF [place] CORONARY ARTERY W/O ANG PCTRS SNOMED Code(s): 81730521 Comment: Cardiac cath 2006: Mod disease LAD.
--- NOTE | 2016-11-17 13:56 | ECHO ---
Patient: [facility] Rec#: [id number] : 1935 Date: 11/17/2016 Age: 81y Height: 175.3 cm / 69.0 in Weight: 68 kg / 149.9 lbs Sex: M BSA: 1.8 Room#: 436 Admit Date#: 11/16/2016 Type: Inpatient Referring: Piotr Kirkpatrick MD Reading: Thanh Montesinos MD End Finder Forming Department: Nae Mascorro RN RDCS CC: Chago Landa MD Transthoracic Echocardiogram Indication: Syncope BP: 99/48 HR: 65 Rhythm: NSR with PACs Findings History: CAD, COPD, former smoker, asthma, HTN Technical Comments: The study quality is fair. The study is technically limited due to poor parasternal windows. The study is technically limited due to the patient's history of COPD. The study is technically limited due to the patient's smoking history. Completed at 1305. Left Ventricle: The left ventricular chamber size is decreased. Mild concentric left ventricular hypertrophy is observed. Global left ventricular wall motion and contractility are within normal limits. There is normal left ventricular systolic function. The estimated ejection fraction is 60-65%. There is an E to A reversal in the mitral valve flow pattern suggestive of diastolic dysfunction. Left Atrium: The left atrial chamber size is normal. Right Ventricle: The right ventricle wall thickness is mildly increased. The right ventricular cavity size is normal. The right ventricular global systolic function is normal. Right Atrium: The right atrial cavity size is normal. Aortic Valve: The aortic valve structure is not well visualized. The aortic valve leaflets are mildly thickened. Systolic excursion of the aortic valve cusps is reduced. There is trace to mild aortic regurgitation. There is moderate aortic stenosis. The mean gradient of the aortic valve is 20 mmHg. The peak instantaneous gradient of the aortic valve is 32 mmHg. The aortic valve area, by peak velocities, is calculated at 1.1 cm2. The aortic valve area, by VTI's, is calculated at 1.2 cm2. Highest aortic valve velocity was acquired with Pedoff in apical position. The peak left ventricular outflow tract gradient is 4 mmHg. The dimensionless index is 0.36-0.39. Mitral Valve: The mitral valve leaflets are mildly thickened. There is no evidence of mitral regurgitation. There is no evidence of mitral stenosis. Tricuspid Valve: The tricuspid valve leaflets are normal. There is trace to mild tricuspid regurgitation. There is evidence of mild pulmonary hypertension. There is no tricuspid stenosis. Pulmonic Valve: The pulmonic valve structure is not well visualized. There is mild pulmonic regurgitation. There is no pulmonic stenosis. Pericardium: There is no significant pericardial effusion. Aorta: The ascending aorta is not well visualized. The aortic arch is not well visualized. There is no dilation of the aortic root. Pulmonary Artery: The main pulmonary artery is not well visualized. Venous: The inferior vena cava appears normal in size. There is a greater than 50% respiratory change in the inferior vena cava dimension. Conclusions Suboptimal views for analysis due to off axis angles and lung tissue interference The below comments are made with limitations due to the poor images. Mild concentric left ventricular hypertrophy is observed. Global left ventricular wall motion and contractility are within normal limits. The estimated ejection fraction is 60-65%. There is an E to A reversal in the mitral valve flow pattern suggestive of diastolic dysfunction. There is trace to mild aortic regurgitation. The aortic valve structure is not well visualized. Doppler analysis suggests the presence of moderate aortic stenosis . There is trace to mild tricuspid regurgitation. There is mild pulmonic regurgitation. No reports of prior studies are offered for comparison. Measurements Name Value Normal Range RVDdMajor (2D) 2.8 cm (2.2 - 4.4) RVAW (2D) 1 cm (0.2 - 0.5) RAd ISD 4CH 4.9 cm (3.4 - 4.9) RA (A4C)W 3.4 cm (2.9 - 4.6) IVSd (2D) 1.2 cm (0.6 - 1) LVPWd (2D) 1.1 cm (0.6 - 1) LVIDd (2D) 3.3 cm (3.6 - 5.4) LVIDs (2D) 2.3 cm - LV FS (2D) 30 % (25 - 45) Aortic Annulus 2.1 cm (1.4 - 2.6) Ao root diameter (2D) 3.3 cm (2.1 - 3.5) LA dimension (AP) 2D 2.8 cm (2.3 - 3.8) LAd ISD 4CH 4.8 cm (2.9 - 5.3) LA ISD 4CH W 3.4 cm (2.5 - 4.5) Name Value Normal Range LA ESV SP 4CH (A/L) 32 ml - LA ESV SP 2CH (A/L) 19 ml - LA ESV BP (A/L) 28 ml - LA ESV BP (A/L) index 15 ml/m2 - LA ESV SP 4CH (MOD) 30 ml - LA ESV SP 2CH (MOD) 19 ml - Name Value Normal Range MV E-wave Vmax 0.74 m/sec - MV deceleration time 327 msec - MV A-wave Vmax 1 m/sec - MV E:A ratio 0.74 ratio - LV septal e' Vmax 0.08 m/sec - LV lateral e' Vmax 0.1 m/sec - LV E:e' septal ratio 9.3 ratio - LV E:e' lateral ratio 7.4 ratio - Name Value Normal Range AV Vmax 2.8 m/sec - AV VTI 55.7 cm - AV peak gradient 32 mmHg - AV mean gradient 20 mmHg - LVOT diameter 2 cm - LVOT Vmax 1 m/sec - LVOT VTI 21.8 cm - LVOT peak gradient 4 mmHg - LVOT mean gradient 2 mmHg - DOI (VTI) 0.36 ratio - DOI (Vmax) 0.39 ratio - SV LVOT 68 ml - MENDEZ (continuity Vmax) 1.1 cm2 - MENDEZ (continuity VTI) 1.2 cm2 - Name Value Normal Range TR Vmax 3 m/sec - TR peak gradient 36 mmHg - RAP 3 mmHg - RVSP 39 mmHg - IVC diameter 1.5 cm - Name Value Normal Range PV Vmax 1.2 m/sec -
[2016-11-17] MEDS: Acetaminophen TAB* 325 MG PO PRN (16:19)
--- NOTE | 2016-11-17 16:23 | RAD ---
INDICATION: Confusion COMPARISON: CT brain November 16, 2016 TECHNIQUE: sagittal T1 FLAIR, axial diffusion, axial T1 FLAIR, axial T2 FLAIR, and SWI images were acquired. Retained FINDINGS: Craniocervical junction: The craniocervical junction appears normal. Ventricles/sulci: There is age-related cortical atrophy with compensatory dilatation of the CSF spaces. Brain parenchyma: There are T2-weighted hyperintensities in the periventricular and subcortical white matter consistent with chronic microvascular ischemia. Intracranial hemorrhage: There is no intracranial hemorrhage. Extra-axial spaces: There are no extra-axial fluid collections or masses. Orbits: There are no MR abnormalities of the orbital structures. Paranasal sinuses/mastoid: The paranasal sinuses are clear. The mastoid air cells are well aerated.. Vascular: No abnormalities are seen. Other: None IMPRESSION: CORTICAL ATROPHY WITH CHRONIC MICROVASCULAR ISCHEMIC CHANGES. NO ACUTE FINDINGS
[2016-11-17] MEDS ORDERED: ZOSYN 3.375 GM x ONE DOSE over 30 miuntes IVPB ×2 (17:00)
[2016-11-17] MEDS: Enoxaparin(*) 40 MG/0.4 ML SYR SUBCUT SCH (17:03)
[2016-11-17] MEDS: Polymyx/Trimethoprim OPTH* 10 ML BTL RIGHT EYE SCH (20:41)
[2016-11-18] MEDS: Polymyx/Trimethoprim OPTH* 10 ML BTL RIGHT EYE SCH ×7 (00:12→23:27)
[2016-11-18 05:55] LABS: Hematocrit 45 % (42-52); Mean Corpuscular HGB Conc 34 g/dl (31-36); Mean Corpuscular Hemoglobin 31 pg (27-31); Mean Corpuscular Volume 91 fL (80-94); Mean Platelet Volume 10 um3 (7.4-10.4); Red Blood Count 4.87 10^6/ul (4.0-5.4); Red Cell Distribution Width 14 % (10.5-15); White Blood Count 4.2 10^3/ul (3.5-10.8)
[2016-11-18 06:02] LABS: Comments Flag Yes
[2016-11-18 06:03] LABS: Add Diff/Slide Review? Slide Review Added
[2016-11-18 06:08] LABS: BUN/Creatinine Ratio 21.5 (8-20); C Reactive Protein 97.84 mg/L (< 5.00); Calcium 8.8 mg/dL (8.6-10.3); EGFR Non-African American 52.9 (>60); Potassium 3.7 mmol/L (3.5-5.0)
[2016-11-18] MEDS: Fluticasone NASAL SPRAY 50MCG* 16 gm SPRAY BTL BOTH NARES SCH (08:05)
[2016-11-18] MEDS: Atorvastatin* 20 MG TAB PO SCH (08:06)
[2016-11-18] MEDS: Acetaminophen TAB* 325 MG PO PRN ×2 (08:06→19:47)
[2016-11-18] MEDS: Cholecalciferol TAB* 1000 UNITS PO SCH (08:06)
[2016-11-18] MEDS: Aspirin EC Low Dose* 81 MG TAB.EC PO SCH (08:06)
[2016-11-18] MEDS: Finasteride TAB* 5 MG PO SCH (08:06)
--- NOTE | 2016-11-18 09:08 | RAD ---
Indication: Elevated troponin. Fall. Chronic obstructive pulmonary disease. Comparison: November 15, 2016 Technique: Sitting AP and lateral chest views. Report: Elevated lung volumes. Mild prominence of the interstitial markings. No alveolar consolidation, focal pulmonary lesion, pleural effusion, pneumothorax. The heart, pulmonary vasculature, and mediastinal contours are unremarkable. Multiple healed bilateral rib fractures. No acute fracture evident. IMPRESSION: Stigmata of obstructive lung disease. No acute pulmonary or cardiac process evident.
--- NOTE | 2016-11-18 11:48 | PN ---
Subjective Date of Service: 11/18/16 Interval History: Patient seen this morning. Reports that he had a slight headache this morning that went away with massage. Denies any cough, SOB, abdominal pain, nausea, vomiting, diarrhea, dysuria. Says he had felt confused which was the main reason he came to the hospital, feels back to baseline now. He has AOx3. Says he still feels a bit weak. Says he had mole removed at PCP office 1 week ago which has not been causing any problems. Family History: Unchanged from Admission Social History: Unchanged from Admission Past Medical History: Unchanged from Admission Objective Active Medications: Acetaminophen (Tylenol Tab*) 650 mg PO Q6H PRN Albuterol/Ipratropium (Duoneb (Albuterol 2.5 Mg/Ipratropium 0.5 Mg)) 1 neb INH Q6H PRN Aspirin (Aspirin Ec Low Dose*) 81 mg PO DAILY AR[facility] Atorvastatin Calcium (Lipitor*) 20 mg PO DAILY [facility] Cholecalciferol (Vitamin D Tab*) 1,000 units PO DAILY [facility] Finasteride (Proscar Tab*) 5 mg PO DAILY [facility] Fluticasone Propionate (Flonase Nasal [place] 50mcg*) 2 spray BOTH NARES DAILY [facility] Piperacillin Sod/Tazobactam (Sod 3.375 gm/ Sodium Chloride) 100 mls @ 25 mls/ hr IVPB Q8H ARAM Polymyxin/Trimethoprim Sulfate (Polytrim Ophth*) 1 drop RIGHT EYE Q4H ARAM Vital Signs 11/17/16 11/17/16 11/17/16 18:19 19:49 20:00 Temperature 98.9 F 97.9 F 97.9 F Pulse Rate 59 57 Respiratory 20 24 Rate Blood Pressure 104/65 104/65 (mmHg) O2 Sat by Pulse 91 93 Oximetry 11/18/16 11:18 Temperature 97.8 F Pulse Rate 58 Respiratory 28 Rate Blood Pressure 85/41 (mmHg) O2 Sat by Pulse 95 Oximetry Oxygen Devices in Use Now: None Appearance: Elderly, M, sitting in chair in NAD Eyes: No Scleral Icterus Ears/Nose/Mouth/Throat: Mucous Membranes Moist Neck: NL Appearance and Movements; NL JVP Respiratory: Symmetrical Chest Expansion and Respiratory Effort, Clear to Auscultation Cardiovascular: NL Sounds; No Murmurs; No JVD, RRR Abdominal: NL Sounds; No Tenderness; No Distention Lymphatic: No Cervical Adenopathy Extremities: No Edema Skin: No Rash or Ulcers, - - Small incision site on L neck, sutures in place, appears c/d/i, no erythema, tenderness or drainage Neurological: Alert and Oriented x 3, NL Muscle Strength and Tone Result Diagrams: 11/18/16 05:14 11/18/16 05:12 Assess/Plan/Problems-Billing Assessment: Fever, weakness in an 81 yo M with hx of MCI, HTN, BPH, valvular disease, COPD - Patient Problems (1) Fever Current Visit: Yes Comment: Source is not clear at this point. Possibly viral infection?. Procalcitonin is 0.6 which could be consistent with possible bacterial infection but is not particularly high. CXR and urine are fairly unremarkable. Neck resection site looks benign. Will hold ABx for now. Follow culture data. If persists could consider CT scan to look for occult infection. (2) Thrombocytopenia Current Visit: Yes Comment: ?due to infection. HIT is unlikely but will hold Lovenox. Continue to monitor daily. (3) COPD (chronic obstructive pulmonary disease) Current Visit: Yes Comment: Stable. Duoneb PRN ordered. (4) BPH (benign prostatic hyperplasia) Current Visit: Yes Comment: Continue finasteride (5) Elevated troponin Current Visit: Yes Comment: Seems that have reached plateau, will trend until decreasing. Likely from demand/CKD. Echo fairly unremarkable, no further work- up at this point. (6) Weakness Current Visit: Yes Comment: MRI negative, may need STR. (7) Cognitive impairment Current Visit: Yes Comment: As per SW note, APS supervisor case loading states patient is AOx3 at baseline which he seems to be at this point. Likely has some cognitive impairment that is long standing. (8) DVT prophylaxis Current Visit: Yes Comment: SCDs
[2016-11-19] MEDS: Polymyx/Trimethoprim OPTH* 10 ML BTL RIGHT EYE SCH ×5 (03:20→21:06)
[2016-11-19] MEDS: Acetaminophen TAB* 325 MG PO PRN ×2 (04:19→16:04)
[2016-11-19 05:48] LABS: Comments Flag Yes; Hematocrit 41 % (42-52); Mean Corpuscular HGB Conc 34 g/dl (31-36); Mean Corpuscular Hemoglobin 31 pg (27-31); Mean Corpuscular Volume 91 fL (80-94); Mean Platelet Volume 11 um3 (7.4-10.4); Red Blood Count 4.54 10^6/ul (4.0-5.4); Red Cell Distribution Width 14 % (10.5-15); White Blood Count 3.4 10^3/ul (3.5-10.8)
[2016-11-19 05:49] LABS: Add Diff/Slide Review? Slide Review Added
[2016-11-19 06:00] LABS: Calcium 8.6 mg/dL (8.6-10.3); EGFR Non-African American 59.1 (>60); Potassium 3.6 mmol/L (3.5-5.0)
[2016-11-19 06:36] LABS: BUN/Creatinine Ratio 27.1 (8-20)
[2016-11-19] MEDS: Finasteride TAB* 5 MG PO SCH (07:57)
[2016-11-19] MEDS: Aspirin EC Low Dose* 81 MG TAB.EC PO SCH (07:57)
[2016-11-19] MEDS: Atorvastatin* 20 MG TAB PO SCH (07:57)
[2016-11-19] MEDS: Cholecalciferol TAB* 1000 UNITS PO SCH (07:57)
[2016-11-19] MEDS: Fluticasone NASAL SPRAY 50MCG* 16 gm SPRAY BTL BOTH NARES SCH (07:58)
--- NOTE | 2016-11-19 08:45 | CONSULT ---
Consultation - Reason for Consultation Reason for Consultation: thrombocytopenia Ordering Provider: Yury Kang Chief Complaint: "feeling bad" History of Present Illness: Note, Mr. 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 He is an 81 yo M w PMH of HTN, Hyperlip, CAD, COPD with active tobacco use, and squamous cell CA of the skin, who presented with weakness and confusion , and was found to have thrombocytopenia. Elder is very vague about why he came to the hospital, with the exception that he felt terrible and needed to come in. He specifically however denies fevers, night sweats, chills, nausea, vomiting, diarrhea, abdominal pain or bloating, anorexia or rash. He just "did not feel right". He came to the ER on the 16 of November at which time his white count was normal and his platelets were 107. In the past they have been normal. He signed out AMA though can not clearly state why. He represented 2 days later with the same complaints of "not feeling right" and was admitted. His platelets yesterday were 75k and today are 28k. His Hb is normal, his MCV is normal and his WBC is lower today at 3.4 with a left shift. Notably his MPV is elevated at 11. He had one dose of lovenox yesterday and a couple of doses of zosyn. He reports that he feels much much better today. He denies recent antibiotic use. 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 The deep margin was positive. Allergies/Medications Medication: Home Medications Medication Instructions Recorded Confirmed Type Albuterol 2.5MG/3ML (0.083%)* 2.5 mg INH Q6H PRN 11/16/16 11/16/16 History [Ventolin 2.5 MG/3 ML NEB.MELINA*] Albuterol Sulfate [Proair 1 puff INH Q4HR PRN 11/16/16 11/16/16 History Respiclick] Aspirin EC Low Dose* [Ecotrin EC 81 mg PO DAILY 11/16/16 11/16/16 History Low Dose 81 MG*] Atorvastatin* [Lipitor*] 20 mg PO DAILY 11/16/16 11/16/16 History Cholecalciferol TAB* [Vitamin D 1,000 unit PO DAILY 11/16/16 11/16/16 History TAB*] Cholecalciferol [Vitamin D] 1,000 unit PO DAILY 11/16/16 11/16/16 History Finasteride TAB* [Proscar TAB*] 5 mg PO DAILY 11/16/16 11/16/16 History Fluticasone NASAL SPRAY 50MCG* 2 spray BOTH NARES DAILY 11/16/16 11/16/16 History [Flonase NASAL SPRAY 50MCG*] Ipratropium HFA INHALER(NF) 2 puff INH Q6H PRN 11/16/16 11/16/16 History [Atrovent Hfa Inhaler(NF)] Acetaminophen (Tylenol Tab*) 650 mg PO Q6H PRN PRN Reason: FEVER/PAIN Last Admin: 11/19/16 04:19 Dose: 650 mg Albuterol/Ipratropium (Duoneb (Albuterol 2.5 Mg/Ipratropium 0.5 Mg)) 1 neb INH Q6H PRN PRN Reason: SHORTNESS OF BREATH Aspirin (Aspirin Ec Low Dose*) 81 mg PO DAILY [facility] Last Admin: 11/19/16 07:57 Dose: 81 mg Atorvastatin Calcium (Lipitor*) 20 mg PO DAILY [facility] Last Admin: 11/19/16 07:57 Dose: 20 mg Cholecalciferol (Vitamin D Tab*) 1,000 units PO DAILY [facility] Last Admin: 11/19/16 07:57 Dose: 1,000 units Finasteride (Proscar Tab*) 5 mg PO DAILY [facility] Last Admin: 11/19/16 07:57 Dose: 5 mg Fluticasone Propionate (Flonase Nasal [place] 50mcg*) 2 spray BOTH NARES DAILY [facility] Last Admin: 11/19/16 07:58 Dose: 2 spray Polymyxin/Trimethoprim Sulfate (Polytrim Ophth*) 1 drop RIGHT EYE Q4H [facility] Last Admin: 11/19/16 07:58 Dose: 1 drop Allergies/Adverse Reactions: Allergies Allergy/AdvReac Type Severity Reaction Status Date / Time No Known Allergies Allergy Verified 11/15/16 16:44 History - Past Medical History Other History: per chart review: HTN. hyperlipidemia. CAD. BPH sp TURP. COPD still smoking. moderate . left inguinal hernia repair. right inguinal hernia repair. scc left neck - Family History Other Family History: can not reliably provide - Social History Other Social History: active smoker 1 cig per day. denies ETOH. lives alone Review of Systems - Review of Systems General Comments: see extensive ROS in HPI, otherwise negative Physical Exam - Physical Exam Physical Examination: Vital Signs Temp Pulse Resp BP Pulse Ox 98.5 F 78 28 102/42 93 11/19/16 07:44 11/19/16 07:44 11/19/16 07:44 11/19/16 08:16 11/19/16 07:44 disheveled, in nad sitting up perr eomi distant heart sounds, suggestion of courtney distant breath sounds rotund abdomen, sitting up in chair, did not want to move to bed, difficult to assess HSM trace LE edema with chronic stasis changes bilaterally slightly slurred speech, marked past pointing, +pronator drift did not ambulate sutures left neck clean no SAMANTHA Results - Lab Results Lab Results: 11/18/16 11/18/16 11/18/16 05:12 05:12 05:14 WBC 4.2 RBC 4.87 Hgb 15.0 Hct 45 MCV 91 MCH 31 MCHC 34 RDW 14 Plt Count 75 L MPV 10 Neut % (Auto) 88.8 H Lymph % (Auto) 5.8 L [place] % (Auto) 4.8 Eos % (Auto) 0 Baso % (Auto) 0.6 Absolute Neuts (auto) 3.7 Absolute Lymphs (auto) 0.2 L Absolute Monos (auto) 0.2 Absolute Eos (auto) 0 Absolute Basos (auto) 0 Absolute Nucleated RBC 0 Nucleated RBC % 0 Hem Pathologist Commnt Sodium 134 Potassium 3.7 Chloride 102 Carbon Dioxide 26 Anion Gap 6 BUN 28 H Creatinine 1.30 H Est GFR ( Amer) 68.0 Est GFR (Non-Af Amer) 52.9 BUN/Creatinine Ratio 21.5 H Glucose 134 H Calcium 8.8 Troponin I C-Reactive Protein 97.84 H Procalcitonin 0.6 H 11/18/16 11/18/16 11/19/16 08:21 14:06 05:32 WBC 3.4 L RBC 4.54 Hgb 14.0 Hct 41 L MCV 91 MCH 31 MCHC 34 RDW 14 Plt Count 28 L D MPV 11 H Neut % (Auto) 87.3 H Lymph % (Auto) 5.3 L [place] % (Auto) 7.1 Eos % (Auto) 0 Baso % (Auto) 0.3 Absolute Neuts (auto) 2.9 Absolute Lymphs (auto) 0.2 L Absolute Monos (auto) 0.2 Absolute Eos (auto) 0 Absolute Basos (auto) 0 Absolute Nucleated RBC 0.01 Nucleated RBC % 0.2 Hem Pathologist Commnt Sodium Potassium Chloride Carbon Dioxide Anion Gap BUN Creatinine Est GFR ( Amer) Est GFR (Non-Af Amer) BUN/Creatinine Ratio Glucose Calcium Troponin I 0.07 H* 0.05 H* C-Reactive Protein Procalcitonin 11/19/16 05:32 WBC RBC Hgb Hct MCV MCH MCHC RDW Plt Count MPV Neut % (Auto) Lymph % (Auto) [place] % (Auto) Eos % (Auto) Baso % (Auto) Absolute Neuts (auto) Absolute Lymphs (auto) Absolute Monos (auto) Absolute Eos (auto) Absolute Basos (auto) Absolute Nucleated RBC Nucleated RBC % Hem Pathologist Commnt Sodium 134 Potassium 3.6 Chloride 102 Carbon Dioxide 24 Anion Gap 8 BUN 32 H Creatinine 1.18 H Est GFR ( Amer) 76.0 Est GFR (Non-Af Amer) 59.1 BUN/Creatinine Ratio 27.1 H Glucose 115 H Calcium 8.6 Troponin I C-Reactive Protein Procalcitonin smear: NO schistocytes, occ large plts, nl appearing WBCs and RBCs Assessment and Plan Impression: 81 yo M admitted with unclear symptoms of feeling poor and found to have thrombocytopenia which has markedly worsened. His smear has no schistocytes. The timing is not right for HIT and the level too low. 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 At his age, this is a diagnosis of exclusion and we will plan on bone marrow biopsy and aspiration to rule out underlying lymphoma. I will also get an abdominal ultrasound. If his platelets fall below 20k tomorrow we will add steroids, but I would prefer to hold off pending a diagnosis. I agree also with the hepatitis and HIV testing that is pending. Please hold his aspirin while platelets are <50k.
[2016-11-19 08:50] LABS: Albumin 2.9 g/dL (3.2-5.2); Direct Bilirubin 1.2 mg/dL (0.03-0.18); Globulin 2.8 g/dL (2-4); Total Bilirubin 2.2 mg/dL (0.2-1.0); Total Protein 5.7 g/dL (6.4-8.9)
[2016-11-19 09:08] LABS: Schistocytes ABSENT
[2016-11-19 09:34] LABS: Rapid HIV INT CONT QC Line Present
[2016-11-19 09:35] LABS: Rapid HIV Kit Lot# F308002
--- NOTE | 2016-11-19 10:22 | PN ---
Subjective Date of Service: 11/19/16 Interval History: Patient seen this morning. Continues to have intermittent fevers which he says he does feel at times. Says he feels he is having some problems with coordination today. Explained low platelets, understands need for possible BMBx Family History: Unchanged from Admission Social History: Unchanged from Admission Past Medical History: Unchanged from Admission Objective Active Medications: Acetaminophen (Tylenol Tab*) 650 mg PO Q6H PRN Albuterol/Ipratropium (Duoneb (Albuterol 2.5 Mg/Ipratropium 0.5 Mg)) 1 neb INH Q6H PRN Atorvastatin Calcium (Lipitor*) 20 mg PO DAILY [facility] Cholecalciferol (Vitamin D Tab*) 1,000 units PO DAILY [facility] Finasteride (Proscar Tab*) 5 mg PO DAILY [facility] Fluticasone Propionate (Flonase Nasal [place] 50mcg*) 2 spray BOTH NARES DAILY [facility] Polymyxin/Trimethoprim Sulfate (Polytrim Ophth*) 1 drop RIGHT EYE Q4H [facility] Vital Signs 11/18/16 11/18/16 11/18/16 11:18 11:25 13:00 Temperature 97.8 F Pulse Rate 58 Respiratory 28 Rate Blood Pressure 85/41 90/54 104/58 (mmHg) O2 Sat by Pulse 95 Oximetry 11/19/16 11/19/16 11/19/16 00:25 04:11 07:44 Temperature 99.2 F 100.5 F 98.5 F Pulse Rate 76 124 78 Respiratory 20 20 28 Rate Blood Pressure 104/55 156/73 78/45 (mmHg) O2 Sat by Pulse 92 100 93 Oximetry 11/19/16 11/19/16 08:00 08:16 Temperature Pulse Rate Respiratory 16 Rate Blood Pressure 102/42 (mmHg) O2 Sat by Pulse Oximetry Oxygen Devices in Use Now: None Appearance: Elderly, M, laying in bed in NAD Eyes: No Scleral Icterus Ears/Nose/Mouth/Throat: Mucous Membranes Moist Neck: NL Appearance and Movements; NL JVP Respiratory: Symmetrical Chest Expansion and Respiratory Effort, Clear to Auscultation Cardiovascular: NL Sounds; No Murmurs; No JVD, RRR Abdominal: NL Sounds; No Tenderness; No Distention Lymphatic: No Cervical Adenopathy Extremities: No Edema Skin: - - Sutures in place in L neck, c/d/i Neurological: Alert and Oriented x 3, - - difficulties with [id number], strength seems intact Result Diagrams: 11/19/16 05:32 11/19/16 05:32 Microbiology and Other Data: Microbiology 11/17/16 16:20 Aerobic Blood Culture - Preliminary Blood Venous No Growth Day 1 Anaerobic Blood Culture - Preliminary No Growth Day 1 Assess/Plan/Problems-Billing Assessment: Fever, weakness in an 81 yo M with hx of MCI, HTN, BPH, valvular disease, COPD - Patient Problems (1) Fever Current Visit: Yes Comment: Unclear source, ?viral infection. Continue to hold ABx for now. Abd US as below. ?related to thrombocytopenia. Will await results of BMBx. (2) Thrombocytopenia Current Visit: Yes Comment: Appreciate Oncology consult. Additional work-up pending. Abd US. BMBx. Possible ITP, consider steroids if platelts drop further. (3) COPD (chronic obstructive pulmonary disease) Current Visit: Yes Comment: Stable. Duoneb PRN ordered. (4) BPH (benign prostatic hyperplasia) Current Visit: Yes Comment: Continue finasteride (5) Elevated troponin Current Visit: Yes Comment: Peaked at 0.07. Likely from demand/CKD. Echo fairly unremarkable, no further work-up at this point. (6) Weakness Current Visit: Yes Comment: Coordination problems. MRI negative, however will get imaging of the head/neck vessels to ensure patency. BPs have been variable, ?underlying atherosclerotic disease. 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 Likely has some cognitive impairment that is long standing. (8) DVT prophylaxis Current Visit: Yes Comment: SCDs
[2016-11-19 10:42] LABS: Fibrinogen 372 mg/dL (110.8-404.3)
[2016-11-19] MEDS ORDERED: Iodixanol* (CONTRAST) 320 MG/ML 100 ML SDV IV ONE (13:49)
--- NOTE | 2016-11-19 15:22 | RAD ---
INDICATION: Coordination problems. Assess for arterial stenosis or occlusion. COMPARISON: November 17, 2016 MRI. TECHNIQUE: Multidetector CT images were obtained from the aortic arch to the vertex of the head with 80 mL Visipaque 320 IV contrast. Arterial phase of enhancement. Multiplanar reformation including maximum intensity projection. 3-D arterial volume rendering. Stenosis estimations based on denominator of distal arterial diameter. NECK ANGIOGRAM REPORT: Visualized upper lung zones are remarkable for emphysema and apical blebs and bulla. Negative for pneumothorax within the [id number]. Normal configuration of the branch vessels at the aortic arch. While motion artifact limits sensitivity and specificity there is suggestion of circumferential noncalcified plaque at the proximal RIGHT common carotid artery with resulting approximate 50% short segment stenosis. Negative for atherosclerotic plaque at the RIGHT carotid bulb or proximal internal carotid artery. Mild calcific plaque at the LEFT carotid bulb and proximal internal carotid artery without resulting stenosis by NASCET criteria. Patent codominant vertebral arteries. NECK ANGIOGRAM IMPRESSION: 1. Approximate 50% short segment ostial stenosis at the origin of the RIGHT common carotid artery from the brachiocephalic artery. 2. Negative for RIGHT or LEFT internal carotid artery stenosis. HEAD ANGIOGRAM REPORT: Negative for significant stenosis or occlusion at the bilateral internal carotid artery or M1 or M2 middle cerebral artery segments. Patent bilateral A1 and A2 anterior cerebral artery segments. No definitive anterior communicating artery visualized. Unremarkable basilar artery and cerebellar artery origins. Patent bilateral posterior cerebral arteries supplied both by the posterior circulation via patent P1 segments and anterior circulation via patent posterior communicating arteries. No visualized central intracranial aneurysms or vascular malformations. Normal opacification of the dominant dural venous sinuses. HEAD ANGIOGRAM IMPRESSION: Negative for central intracranial arterial large vessel occlusion or stenosis. CPT II: CPT II Codes: 3100F
--- NOTE | 2016-11-19 15:47 | RAD ---
INDICATION: Distended abdomen, low platelets assess for hepatosplenomegaly. COMPARISON: Comparison is made with a prior CT of the abdomen from May 23, 2009. TECHNIQUE: Multiple real-time images of the abdomen were obtained. FINDINGS: The liver is normal in size and echogenicity without significant focal abnormality. The gallbladder appeared normal. No gallstones, gallbladder wall thickening or pericholecystic fluid was present. No intra or extrahepatic ductal distention is present. The common bile duct measured 0.5 cm in diameter. The pancreas is partially obscured by overlying bowel gas. The kidneys are normal in size shape and echogenicity. The right kidney measured 10.5 x 4.7 x 3.7 cm and the left kidney measured 10.4 x 4.2 x 4.2 cm. No hydronephrosis or significant focal renal abnormality is seen. The spleen is enlarged and homogeneous in echogenicity without focal abnormality. The spleen measured 14.1 x 5.8 x 13.3 cm. The abdominal aorta is normal in caliber. IMPRESSION: SPLENOMEGALY.
[2016-11-20] MEDS: Polymyx/Trimethoprim OPTH* 10 ML BTL RIGHT EYE SCH ×6 (01:40→20:53)
[2016-11-20] MEDS: Acetaminophen TAB* 325 MG PO PRN ×2 (04:39→17:18)
[2016-11-20 06:24] LABS: Hematocrit 39 % (42-52); Hemoglobin 13.2 g/dl (14.0-18.0); Mean Corpuscular HGB Conc 34 g/dl (31-36); Mean Corpuscular Hemoglobin 31 pg (27-31); Mean Corpuscular Volume 91 fL (80-94); Red Blood Count 4.28 10^6/ul (4.0-5.4); Red Cell Distribution Width 14 % (10.5-15); White Blood Count 2.6 10^3/ul (3.5-10.8)
[2016-11-20 06:27] LABS: Comments Flag Yes
[2016-11-20 06:29] LABS: Add Diff/Slide Review? Slide Review Added
[2016-11-20 06:35] LABS: BUN/Creatinine Ratio 29.6 (8-20); Calcium 8.7 mg/dL (8.6-10.3); EGFR African American 78.3 (>60); EGFR Non-African American 60.9 (>60); Potassium 3.7 mmol/L (3.5-5.0)
[2016-11-20 07:01] LABS: Neutrophil % 41 % (38-83)
[2016-11-20 07:02] LABS: Immature Granulocytes 40 % (0-9); RBC Morphology Normal (Normal)
[2016-11-20] MEDS ORDERED: Lidocaine 2% PF * 5 ML VIAL INJ ONE (08:56)
[2016-11-20] MEDS: Fluticasone NASAL SPRAY 50MCG* 16 gm SPRAY BTL BOTH NARES SCH (09:48)
[2016-11-20] MEDS: Atorvastatin* 20 MG TAB PO SCH (09:50)
[2016-11-20] MEDS: Finasteride TAB* 5 MG PO SCH (09:50)
[2016-11-20] MEDS: Cholecalciferol TAB* 1000 UNITS PO SCH (09:50)
[2016-11-20 10:26] LABS: Platelet Count, Citrated 20 10^3/ul (150-450)
--- NOTE | 2016-11-20 11:05 | ED ---
Iwona Alvarado Auryana, scribed for Manpreet Joel MD on 11/16/16 at 1220 . Neurological HPI - HPI Summary HPI Summary: 81 year old male NAZARIOA s/p being found slouched in chair at home. On EMS arrival , patient had right sided facial droop, right sided weakness and urinary incontinence. Per EMS- patient receives Meals on Wheels but has not been eating. Patient denies any chest pain, SOB, or any other complaints. He was seen here at [facility] and evaluated for admission for similar complaints - patient refused admission or social work consult for possible fpc placement. PMHx is significant for COPD. His son lives in [place] and visits often to check on father. Patient currently lives alone and refuses to live in a nursing/ assisted living facility. - History of Current Complaint Chief Complaint: EDNeurologicalDeficit Stated Complaint: WEEKNESS, AMS Time Seen by Provider: 11/16/16 12:05 Hx Obtained From: Patient, EMS, Medical Records Onset/Duration: Sudden Onset Onset Severity: Mild Current Severity: Mild Neurological Deficit Location: Facial - right sided, RUE, RLE Pain Intensity: 0 Pain Scale Used: 0-10 Numeric Syncope Location: All Extremities - found slouched over Associated Signs and Symptoms: Positive: Incontinent Bladder/Bowel - bladder, Decreased Oral Intake Similar Episode/Dx as: SEE HPI AND PREVIOUS MEDICAL RECORDS - Allergy/Home Medications Allergies/Adverse Reactions: Allergies Allergy/AdvReac Type Severity Reaction Status Date / Time No Known Allergies Allergy Verified 11/15/16 16:44 Home Medications: Home Medications Albuterol 2.5MG/3ML (0.083%)* [Ventolin 2.5 MG/3 ML NEB.MELINA*] 2.5 mg INH Q6H PRN 11/16/16 [History Confirmed 11/16/16] Albuterol Sulfate [Proair Respiclick] 1 puff INH Q4HR PRN 11/16/16 [History Confirmed 11/16/16] Aspirin EC Low Dose* [Ecotrin EC Low Dose 81 MG*] 81 mg PO DAILY 11/16/16 [ History Confirmed 11/16/16] Atorvastatin* [Lipitor*] 20 mg PO DAILY 11/16/16 [History Confirmed 11/16/16] Cholecalciferol TAB* [Vitamin D TAB*] 1,000 unit PO DAILY 11/16/16 [History Confirmed 11/16/16] Cholecalciferol [Vitamin D] 1,000 unit PO DAILY 11/16/16 [History Confirmed ] Finasteride TAB* [Proscar TAB*] 5 mg PO DAILY 11/16/16 [History Confirmed ] Fluticasone [place] 50MCG* [Flonase NASAL SPRAY 50MCG*] 2 spray BOTH NARES DAILY 11/16/16 [History Confirmed 11/16/16] Ipratropium HFA INHALER(NF) [Atrovent Hfa Inhaler(NF)] 2 puff INH Q6H PRN [History Confirmed 11/16/16] PMH/Surg Hx/FS Hx/Imm Hx Endocrine/Hematology History: Denies: Hx Sickle Cell Disease Cardiovascular History: Reports: Hx Hypertension - NO MEDS, Hx Valvular Heart Disease, Other Cardiovascular Problems/Disorders - HEART MURMUR, HAD FOR YRS Respiratory History: Reports: Hx Asthma - RESCUE INHALER, Hx Chronic Obstructive Pulmonary Disease (COPD) Denies: Other Respiratory Problems/Disorders GI History: Denies: Other GI Disorders History: Reports: Other Problems/Disorders - urinary retention, bladder growths Musculoskeletal History: Reports: Hx Arthritis Sensory History: Reports: Hx Cataracts - REMOVED Denies: Hx Contacts or Glasses, Hx Hearing Aid Opthamlomology History: Reports: Hx Cataracts - REMOVED Denies: Hx Contacts or Glasses Neurological History: Reports: Other Neuro Impairments/Disorders - OCCASIONAL DIZZINESS, NONE LATELY - Surgical History Surgery Procedure, Year, and Place: BLADDER RESECTION. 2013 BILATERAL EYES CATARACT EXTRACTION WITH IOL IMPLANTS, [facility]. LEFT INGUINAL HERNIA REPAIR, [facility] Hx Anesthesia Reactions: No - Immunization History Date of Tetanus Vaccine: Unk Date of Influenza Vaccine: Unk Infectious Disease History: No Infectious Disease History: Denies: Traveled Outside the [place] in Last 30 Days - Family History Known Family History: Positive: Other - Father had throat cancer - Social History Occupation: Retired Lives: Alone Alcohol Use: None Substance Use Type: Reports: None Hx Tobacco Use: Yes Smoking Status (MU): Light Every Day Tobacco Smoker Amount Used/How Often: 1 PPD Length of Time of Smoking/Using Tobacco: 60 YEARS Have You Smoked in the Last Year: Yes Review of Systems Constitutional: Negative Negative: Fever Eyes: Negative ENT: Negative Cardiovascular: Negative Negative: Chest Pain Respiratory: Negative Negative: Shortness Of Breath Positive: Other - DECREASED APPETITE Positive: incontinence - BLADDER Musculoskeletal: Negative Skin: Negative Positive: Weakness - RIGHT SIDED, RIGHT FACIAL DROOP Psychological: Normal All Other Systems Reviewed And Are Negative: Yes Physical Exam - Summary Physical Exam Summary: VITAL SIGNS: Reviewed. GENERAL: Patient is a well-developed and fragile MALE who is lying comfortable in the stretcher. Patient is not in any acute respiratory distress. BAD HYGIENE. HEAD AND FACE: No signs of trauma. No ecchymosis, hematomas or skull depressions. No sinus tenderness. EYES: PERRLA, EOMI x 2, No injected conjunctiva, no nystagmus. EARS: Hearing grossly intact. Ear canals and tympanic membranes are within normal limits. MOUTH: Oropharynx within normal limits. NECK: Supple, trachea is midline, no adenopathy, no JVD, no carotid bruit, no c- spine tenderness, neck with full ROM. CHEST: Symmetric, no tenderness at palpation LUNGS: Clear to auscultation bilaterally. No wheezing or crackles. CVS: Regular rate and rhythm, S1 and S2 present, no murmurs or gallops appreciated. ABDOMEN: Soft, non-tender. No signs of distention. No rebound no guarding, and no masses palpated. Bowel sounds are normal. EXTREMITIES: FROM in all major joints, no edema, no cyanosis or clubbing. NEURO: Alert and oriented x 3. No acute neurological deficits. Speech is normal and follows commands. SKIN: Dry and warm. Sutured incision noted at left side of neck. Pt reports removal procedure of tumor. Triage Information Reviewed: Yes Vital Signs On Initial Exam: Initial Vitals Temp Pulse Resp BP Pulse Ox 98.3 F 68 16 153/71 97 11/16/16 12:01 11/16/16 12:01 11/16/16 12:01 11/16/16 12:01 11/16/16 12:01 Vital Signs Reviewed: Yes Diagnostics - Vital Signs Vital Signs Temp Pulse Resp BP Pulse Ox 11/16/16 12:05 29 153/71 11/16/16 12:01 98.3 F 68 16 153/71 97 - Laboratory Lab Results: Lab Results 11/16/16 11/16/16 11/16/16 Range/Units 12:18 12:18 12:18 WBC 6.1 (3.5-10.8) 10^3/ul RBC 5.48 H (4.0-5.4) 10^6/ul Hgb 17.1 (14.0-18.0) g/dl Hct 50 (42-52) % MCV 92 (80-94) fL MCH 31 (27-31) pg MCHC 34 (31-36) g/dl RDW 14 (10.5-15) % Plt Count 107 L (150-450) 10^3/ul MPV 8 (7.4-10.4) um3 Neut % (Auto) 85.4 H (38-83) % Lymph % (Auto) 6.7 L (25-47) % [place] % (Auto) 6.5 (1-9) % Eos % (Auto) 0 (0-6) % Baso % (Auto) 1.4 (0-2) % Absolute Neuts (auto) 5.3 (1.5-7.7) 10^3/ul Absolute Lymphs (auto) 0.4 L (1.0-4.8) 10^3/ul Absolute Monos (auto) 0.4 (0-0.8) 10^3/ul Absolute Eos (auto) 0 (0-0.6) 10^3/ul Absolute Basos (auto) 0.1 (0-0.2) 10^3/ul Absolute Nucleated RBC 0 10^3/ul Nucleated RBC % 0 Sodium 134 (133-145) mmol/L Potassium 4.2 (3.5-5.0) mmol/L Chloride 100 L (101-111) mmol/L Carbon Dioxide 27 (22-32) mmol/L Anion Gap 7 (2-11) mmol/L BUN 20 (6-24) mg/dL Creatinine 1.50 H (0.67-1.17) mg/dL Est GFR ( Amer) 57.6 (>60) Est GFR (Non-Af Amer) 44.8 (>60) BUN/Creatinine Ratio 13.3 (8-20) Glucose 109 H (70-100) mg/dL Lactic Acid 1.3 (0.5-2.0) mmol/L Calcium 9.7 (8.6-10.3) mg/dL Magnesium 2.1 (1.9-2.7) mg/dL Total Bilirubin 1.50 H (0.2-1.0) mg/dL AST 23 (13-39) U/L ALT 15 (7-52) U/L Alkaline Phosphatase 61 (34-104) U/L Troponin I 0.05 H* (<0.04) ng/mL Total Protein 7.2 (6.4-8.9) g/dL Albumin 3.9 (3.2-5.2) g/dL Globulin 3.3 (2-4) g/dL Albumin/Globulin Ratio 1.2 (1-3) TSH 0.48 (0.34-5.60) mcIU/mL Urine Color Urine Appearance Urine pH (5-9) Ur Specific [place] (1.010-1.030) Urine Protein (Negative) Urine Ketones (Negative) Urine Blood (Negative) Urine Nitrate (Negative) Urine Bilirubin (Negative) Urine Urobilinogen (Negative) Ur Leukocyte Esterase (Negative) Urine WBC (Auto) (Absent) Urine RBC (Auto) (Absent) Ur Squamous Epith Cells (Absent) Urine Bacteria (Absent) Hyaline Casts (Absent) Urine Yeast (Absent) Urine Glucose (Negative) 11/16/16 11/16/16 Range/Units 15:35 18:33 WBC (3.5-10.8) 10^3/ul RBC (4.0-5.4) 10^6/ul Hgb (14.0-18.0) g/dl Hct (42-52) % MCV (80-94) fL MCH (27-31) pg MCHC (31-36) g/dl RDW (10.5-15) % Plt Count (150-450) 10^3/ul MPV (7.4-10.4) um3 Neut % (Auto) (38-83) % Lymph % (Auto) (25-47) % [place] % (Auto) (1-9) % Eos % (Auto) (0-6) % Baso % (Auto) (0-2) % Absolute Neuts (auto) (1.5-7.7) 10^3/ul Absolute Lymphs (auto) (1.0-4.8) 10^3/ul Absolute Monos (auto) (0-0.8) 10^3/ul Absolute Eos (auto) (0-0.6) 10^3/ul Absolute Basos (auto) (0-0.2) 10^3/ul Absolute Nucleated RBC 10^3/ul Nucleated RBC % Sodium (133-145) mmol/L Potassium (3.5-5.0) mmol/L Chloride (101-111) mmol/L Carbon Dioxide (22-32) mmol/L Anion Gap (2-11) mmol/L BUN (6-24) mg/dL Creatinine (0.67-1.17) mg/dL Est GFR ( Amer) (>60) Est GFR (Non-Af Amer) (>60) BUN/Creatinine Ratio (8-20) Glucose (70-100) mg/dL Lactic Acid (0.5-2.0) mmol/L Calcium (8.6-10.3) mg/dL Magnesium (1.9-2.7) mg/dL Total Bilirubin (0.2-1.0) mg/dL AST (13-39) U/L ALT (7-52) U/L Alkaline Phosphatase (34-104) U/L Troponin I 0.07 H* (<0.04) ng/mL Total Protein (6.4-8.9) g/dL Albumin (3.2-5.2) g/dL Globulin (2-4) g/dL Albumin/Globulin Ratio (1-3) TSH (0.34-5.60) mcIU/mL Urine Color Alisha Urine Appearance Cloudy Urine pH 6.0 (5-9) Ur Specific [place] 1.019 (1.010-1.030) Urine Protein 2+(100 mg/dl) H (Negative) Urine Ketones Trace H (Negative) Urine Blood 3+ H (Negative) Urine Nitrate Negative (Negative) Urine Bilirubin Negative (Negative) Urine Urobilinogen Negative (Negative) Ur Leukocyte Esterase Negative (Negative) Urine WBC (Auto) 1+(6-10/hpf) H (Absent) Urine RBC (Auto) 3+(>10/hpf) H (Absent) Ur Squamous Epith Cells Present H (Absent) Urine Bacteria Absent (Absent) Hyaline Casts Present H (Absent) Urine Yeast Present H (Absent) Urine Glucose Negative (Negative) Result Diagrams: 11/20/16 07:09 11/20/16 05:20 Lab Statement: Any lab studies that have been ordered have been reviewed, and results considered in the medical decision making process. - CT BRAIN CT Interpretation: Positive (See Comments) - IMPRESSION: Chronic ischemic White matter change. There is no evidence of intracranial mass or hemorrhage. No changes noted since November 15, 2016. CT Interpretation Completed By: Radiologist - EKG 11:58 EKG Interpretation: SINUS RHYTHM @ 68 BPM, NO ST ELEVATION Course/Dx - Course Assessment/Plan: 81 year old male BIBA s/p being found slouched in chair at home. On EMS arrival, patient had right sided facial droop, right sided weakness and urinary incontinence. Per EMS- patient receives Meals on Wheels but has not been eating. Patient denies any chest pain, SOB, or any other complaints. He was seen here at [facility] and evaluated for admission for similar complaints - patient refused admission or social work consult for possible fpc placement. PMHx is significant for COPD. His son lives in [place] and visits often to check on father. Patient currently lives alone and refuses to live in a nursing/assisted living facility. Test results WNL except creatinine 1.50, glu 109, trop 0.05. UA contaminated therefore wait for UA culutres. At this point, I see that patienbt unable to care for himself. He is alert and oriented and initially refused admission but he unable to be discharged. I discussed with the patient the risk of discharge and the benefit of admission to the hospital and patient finally agreed to admission. CT BRAIN - IMPRESSION: Chronic ischemic White matter change. There is no evidence of intracranial mass or hemorrhage. No changes noted since November 15, 2016. I discussed with Dr. carr who accepted pat for admit. Dx: unable to care for himself, elevated troponin, r/o acute coronary syndrome. Patient is hemodynamically stable and A&O. - Differential Dx Differential Diagnoses Neuro: Positive: Cerebrovascular Accident, Intracranial Bleed, Seizure Disorder, Transient Ischemic Attack - Diagnoses Provider Diagnoses: Elevated troponin, R/O acute coronary syndrome , Unable to ambulate, Weakness - Physician Notifications Discussed Care Of Patient With: Francy Carr Time Discussed With Above Provider: 14:36 - agrees to admit patient Discharge - Discharge Plan Condition: Stable Disposition: ADMITTED TO [facility] The documentation as recorded by the Iwona alva Auryana accurately reflects the service I personally performed and the decisions made by me, Manpreet Joel MD.
--- NOTE | 2016-11-20 11:18 | PROCNOTE ---
Hematology/Oncology Procedure Hematology/Oncology Procedure Note: Bone Marrow Procedure Note: Informed consent obtained. Time out performed per protocol. Anesthesia 2% lidocaine approx. 2 mLs administered with good effect. Bone marrow biopsy and aspirate obtained from left posterior superior iliac crest without obvious complications. Pt. tolerated well. Minimal blood loss.
--- NOTE | 2016-11-20 16:44 | PN ---
Subjective Date of Service: 11/20/16 Interval History: No new c/o. He denies pain, SOB. Appetite OK. Family History: Unchanged from Admission Social History: Unchanged from Admission Past Medical History: Unchanged from Admission Objective Active Medications: Acetaminophen (Tylenol Tab*) 650 mg PO Q6H PRN PRN Reason: FEVER/PAIN Last Admin: 11/20/16 04:39 Dose: 650 mg Albuterol/Ipratropium (Duoneb (Albuterol 2.5 Mg/Ipratropium 0.5 Mg)) 1 neb INH Q6H PRN PRN Reason: SHORTNESS OF BREATH Atorvastatin Calcium (Lipitor*) 20 mg PO DAILY [facility] Last Admin: 11/20/16 09:50 Dose: 20 mg Cholecalciferol (Vitamin D Tab*) 1,000 units PO DAILY [facility] Last Admin: 11/20/16 09:50 Dose: 1,000 units Finasteride (Proscar Tab*) 5 mg PO DAILY [facility] Last Admin: 11/20/16 09:50 Dose: 5 mg Fluticasone Propionate (Flonase Nasal [place] 50mcg*) 2 spray BOTH NARES DAILY [facility] Last Admin: 11/20/16 09:48 Dose: 2 spray Polymyxin/Trimethoprim Sulfate (Polytrim Ophth*) 1 drop RIGHT EYE Q4H [facility] Last Admin: 11/20/16 13:09 Dose: 1 drop Vital Signs 11/19/16 11/19/16 11/19/16 19:54 20:00 23:45 Temperature 99.6 F 97.6 F Pulse Rate 57 71 Respiratory 26 26 36 Rate Blood Pressure 102/48 112/54 (mmHg) O2 Sat by Pulse 92 99 Oximetry 11/20/16 11/20/16 11/20/16 04:32 07:32 08:00 Temperature 99.4 F 98.8 F Pulse Rate 72 Respiratory 16 28 Rate Blood Pressure 99/44 (mmHg) O2 Sat by Pulse 93 Oximetry Oxygen Devices in Use Now: None Appearance: Alert, partly up in bed. Neutral affect. Looks comfortable. Eyes: No Scleral Icterus Respiratory: Symmetrical Chest Expansion and Respiratory Effort, Clear to Auscultation, Clear to Percussion Cardiovascular: NL Sounds; No Murmurs; No JVD, RRR, No Edema, - Extremities: No Edema, No Clubbing, Cyanosis, - Skin: No Rash or Ulcers, No Nodules or Sclerosis, - Neurological: Alert and Oriented x 3, NL Sensation - Can weakly raise each leg off the bed. Foot dorsiflesion , - - Can weakly raise each leg off the bed. Foot forsiflexion and flexion 3-4 BL. Speech dysarthric as before. Result Diagrams: 11/20/16 07:09 11/20/16 05:20 Additional Lab and Data: Lab Results 11/16/16 11/16/16 11/16/16 Range/Units 12:18 12:18 12:18 WBC 6.1 (3.5-10.8) 10^3/ul RBC 5.48 H (4.0-5.4) 10^6/ul Hgb 17.1 (14.0-18.0) g/dl Hct 50 (42-52) % MCV 92 (80-94) fL MCH 31 (27-31) pg MCHC 34 (31-36) g/dl RDW 14 (10.5-15) % Plt Count 107 L (150-450) 10^3/ul MPV 8 (7.4-10.4) um3 Neut % (Auto) 85.4 H (38-83) % Lymph % (Auto) 6.7 L (25-47) % [place] % (Auto) 6.5 (1-9) % Eos % (Auto) 0 (0-6) % Baso % (Auto) 1.4 (0-2) % Absolute Neuts (auto) 5.3 (1.5-7.7) 10^3/ul Absolute Lymphs (auto) 0.4 L (1.0-4.8) 10^3/ul Absolute Monos (auto) 0.4 (0-0.8) 10^3/ul Absolute Eos (auto) 0 (0-0.6) 10^3/ul Absolute Basos (auto) 0.1 (0-0.2) 10^3/ul Absolute Nucleated RBC 0 10^3/ul Nucleated RBC % 0 Sodium 134 (133-145) mmol/L Potassium 4.2 (3.5-5.0) mmol/L Chloride 100 L (101-111) mmol/L Carbon Dioxide 27 (22-32) mmol/L Anion Gap 7 (2-11) mmol/L BUN 20 (6-24) mg/dL Creatinine 1.50 H (0.67-1.17) mg/dL Est GFR ( Amer) 57.6 (>60) Est GFR (Non-Af Amer) 44.8 (>60) BUN/Creatinine Ratio 13.3 (8-20) Glucose 109 H (70-100) mg/dL Lactic Acid 1.3 (0.5-2.0) mmol/L Calcium 9.7 (8.6-10.3) mg/dL Magnesium 2.1 (1.9-2.7) mg/dL Total Bilirubin 1.50 H (0.2-1.0) mg/dL AST 23 (13-39) U/L ALT 15 (7-52) U/L Alkaline Phosphatase 61 (34-104) U/L Troponin I 0.05 H* (<0.04) ng/mL Total Protein 7.2 (6.4-8.9) g/dL Albumin 3.9 (3.2-5.2) g/dL Globulin 3.3 (2-4) g/dL Albumin/Globulin Ratio 1.2 (1-3) TSH 0.48 (0.34-5.60) mcIU/mL Urine Color Urine Appearance Urine pH (5-9) Ur Specific [place] (1.010-1.030) Urine Protein (Negative) Urine Ketones (Negative) Urine Blood (Negative) Urine Nitrate (Negative) Urine Bilirubin (Negative) Urine Urobilinogen (Negative) Ur Leukocyte Esterase (Negative) Urine WBC (Auto) (Absent) Urine RBC (Auto) (Absent) Ur Squamous Epith Cells (Absent) Urine Bacteria (Absent) Hyaline Casts (Absent) Urine Yeast (Absent) Urine Glucose (Negative) 11/16/16 11/16/16 Range/Units 15:35 18:33 WBC (3.5-10.8) 10^3/ul RBC (4.0-5.4) 10^6/ul Hgb (14.0-18.0) g/dl Hct (42-52) % MCV (80-94) fL MCH (27-31) pg MCHC (31-36) g/dl RDW (10.5-15) % Plt Count (150-450) 10^3/ul MPV (7.4-10.4) um3 Neut % (Auto) (38-83) % Lymph % (Auto) (25-47) % [place] % (Auto) (1-9) % Eos % (Auto) (0-6) % Baso % (Auto) (0-2) % Absolute Neuts (auto) (1.5-7.7) 10^3/ul Absolute Lymphs (auto) (1.0-4.8) 10^3/ul Absolute Monos (auto) (0-0.8) 10^3/ul Absolute Eos (auto) (0-0.6) 10^3/ul Absolute Basos (auto) (0-0.2) 10^3/ul Absolute Nucleated RBC 10^3/ul Nucleated RBC % Sodium (133-145) mmol/L Potassium (3.5-5.0) mmol/L Chloride (101-111) mmol/L Carbon Dioxide (22-32) mmol/L Anion Gap (2-11) mmol/L BUN (6-24) mg/dL Creatinine (0.67-1.17) mg/dL Est GFR ( Amer) (>60) Est GFR (Non-Af Amer) (>60) BUN/Creatinine Ratio (8-20) Glucose (70-100) mg/dL Lactic Acid (0.5-2.0) mmol/L Calcium (8.6-10.3) mg/dL Magnesium (1.9-2.7) mg/dL Total Bilirubin (0.2-1.0) mg/dL AST (13-39) U/L ALT (7-52) U/L Alkaline Phosphatase (34-104) U/L Troponin I 0.07 H* (<0.04) ng/mL Total Protein (6.4-8.9) g/dL Albumin (3.2-5.2) g/dL Globulin (2-4) g/dL Albumin/Globulin Ratio (1-3) TSH (0.34-5.60) mcIU/mL Urine Color Alisha Urine Appearance Cloudy Urine pH 6.0 (5-9) Ur Specific [place] 1.019 (1.010-1.030) Urine Protein 2+(100 mg/dl) H (Negative) Urine Ketones Trace H (Negative) Urine Blood 3+ H (Negative) Urine Nitrate Negative (Negative) Urine Bilirubin Negative (Negative) Urine Urobilinogen Negative (Negative) Ur Leukocyte Esterase Negative (Negative) Urine WBC (Auto) 1+(6-10/hpf) H (Absent) Urine RBC (Auto) 3+(>10/hpf) H (Absent) Ur Squamous Epith Cells Present H (Absent) Urine Bacteria Absent (Absent) Hyaline Casts Present H (Absent) Urine Yeast Present H (Absent) Urine Glucose Negative (Negative) Microbiology and Other Data: Microbiology 11/17/16 16:20 Aerobic Blood Culture - Preliminary Blood Venous No Growth Day 1 Anaerobic Blood Culture - Preliminary No Growth Day 1 Assess/Plan/Problems-Billing Assessment: Fever, weakness in an 81 yo M with hx of MCI, HTN, BPH, valvular disease, COPD - Patient Problems (1) Weakness Current Visit: Yes Status: Acute Code(s): R53.1 - WEAKNESS SNOMED Code(s) : 97994152 Comment: And/or gait disorder. MRI negative, CTA negative. Will ask for neurogology consultation. (2) Dementia Current Visit: Yes Status: Acute Code(s): F03.90 - UNSPECIFIED DEMENTIA WITHOUT BEHAVIORAL DISTURBANCE SNOMED Code(s): 60128366 Comment: Very poor historian and couldn't name the present month. At least early dementia. (3) COPD (chronic obstructive pulmonary disease) Current Visit: Yes Status: Acute Code(s): J44.9 - CHRONIC OBSTRUCTIVE PULMONARY DISEASE, UNSPECIFIED SNOMED Code(s): 88797195 Comment: Stable. Duoneb PRN ordered. (4) CAD (coronary artery disease) Current Visit: Yes Status: Acute Code(s): I25.10 - ATHSCL HEART DISEASE OF [place] CORONARY ARTERY W/O ANG PCTRS SNOMED Code(s): 49928036 Comment: Cardiac cath 2006: Mod disease LAD. (5) Thrombocytopenia Current Visit: Yes Status: Acute Code(s): D69.6 - THROMBOCYTOPENIA, UNSPECIFIED SNOMED Code(s): 594334138 Comment: Also leukopenia. Appreciate Oncology consult. Abd US showed splenomegaly. BMBx report pending. Possible ITP, consider steroids if platelts drop further. (6) Fever Current Visit: Yes Status: Acute Code(s): R50.9 - FEVER, UNSPECIFIED SNOMED Code(s): 528863852 Comment: Unclear source, ?viral infection. Continue to hold ABx for now. Abd US as below. ?related to thrombocytopenia. Will await results of BMBx.
[2016-11-21] MEDS: Polymyx/Trimethoprim OPTH* 10 ML BTL RIGHT EYE SCH ×6 (00:10→22:08)
[2016-11-21 05:40] LABS: Hematocrit 40 % (42-52); Hemoglobin 13.4 g/dl (14.0-18.0); Mean Corpuscular HGB Conc 33 g/dl (31-36); Mean Corpuscular Hemoglobin 31 pg (27-31); Mean Corpuscular Volume 92 fL (80-94); Red Blood Count 4.36 10^6/ul (4.0-5.4); Red Cell Distribution Width 15 % (10.5-15); White Blood Count 2.9 10^3/ul (3.5-10.8)
[2016-11-21 05:41] LABS: Add Diff/Slide Review? Slide Review Added; Comments Flag Yes
[2016-11-21] MEDS: Fluticasone NASAL SPRAY 50MCG* 16 gm SPRAY BTL BOTH NARES SCH (08:10)
[2016-11-21] MEDS: Atorvastatin* 20 MG TAB PO SCH (08:11)
[2016-11-21] MEDS: Cholecalciferol TAB* 1000 UNITS PO SCH (08:11)
[2016-11-21] MEDS: Acetaminophen TAB* 325 MG PO PRN ×2 (08:11→14:57)
[2016-11-21] MEDS: Finasteride TAB* 5 MG PO SCH (08:11)
--- NOTE | 2016-11-21 15:05 | PN ---
Subjective Date of Service: 11/21/16 Interval History: No c/o. Family History: Unchanged from Admission Social History: Unchanged from Admission Past Medical History: Unchanged from Admission Objective Active Medications: Acetaminophen (Tylenol Tab*) 650 mg PO Q6H PRN PRN Reason: FEVER/PAIN Last Admin: 11/21/16 14:57 Dose: 650 mg Albuterol/Ipratropium (Duoneb (Albuterol 2.5 Mg/Ipratropium 0.5 Mg)) 1 neb INH Q6H PRN PRN Reason: SHORTNESS OF BREATH Atorvastatin Calcium (Lipitor*) 20 mg PO DAILY [facility] Last Admin: 11/21/16 08:11 Dose: 20 mg Cholecalciferol (Vitamin D Tab*) 1,000 units PO DAILY [facility] Last Admin: 11/21/16 08:11 Dose: 1,000 units Finasteride (Proscar Tab*) 5 mg PO DAILY [facility] Last Admin: 11/21/16 08:11 Dose: 5 mg Fluticasone Propionate (Flonase Nasal [place] 50mcg*) 2 spray BOTH NARES DAILY [facility] Last Admin: 11/21/16 08:10 Dose: 2 spray Polymyxin/Trimethoprim Sulfate (Polytrim Ophth*) 1 drop RIGHT EYE Q4H [facility] Last Admin: 11/21/16 12:55 Dose: 1 drop Vital Signs 11/20/16 11/20/16 11/20/16 15:21 19:38 20:00 Temperature 99.3 F 98.5 F Pulse Rate 63 69 Respiratory 20 20 20 Rate Blood Pressure 136/62 111/47 (mmHg) O2 Sat by Pulse 99 96 Oximetry 11/20/16 11/21/16 11/21/16 23:30 03:32 07:16 Temperature 97.8 F 98.0 F Pulse Rate 64 51 124 Respiratory 16 16 16 Rate Blood Pressure 96/51 112/47 118/53 (mmHg) O2 Sat by Pulse 97 100 77 Oximetry 11/21/16 11/21/16 11/21/16 08:00 08:09 12:54 Temperature 97.3 F 98.3 F Pulse Rate Respiratory 22 Rate Blood Pressure (mmHg) O2 Sat by Pulse Oximetry Oxygen Devices in Use Now: None Appearance: Alert, partly up in bed. Neutral affect. Looks comfortable. Head leaning to R. Eyes: No Scleral Icterus Neck: NL Appearance and Movements; NL JVP, No Thyroid Enlargement, Masses Respiratory: Symmetrical Chest Expansion and Respiratory Effort, Clear to Percussion, - - mild to mod rhonchi all lung miranda Cardiovascular: NL Sounds; No Murmurs; No JVD, RRR, No Edema, - Lymphatic: No Cervical Adenopathy, No Axillary Adenopathy, No Inguinal Adenopathy, No Auricular Adenopathy, - Neurological: Alert and Oriented x 3, NL Sensation, - - Apathetic demeanor. Passive. Result Diagrams: 11/21/16 04:57 11/20/16 05:20 Additional Lab and Data: Lab Results 11/16/16 11/16/16 11/16/16 Range/Units 12:18 12:18 12:18 WBC 6.1 (3.5-10.8) 10^3/ul RBC 5.48 H (4.0-5.4) 10^6/ul Hgb 17.1 (14.0-18.0) g/dl Hct 50 (42-52) % MCV 92 (80-94) fL MCH 31 (27-31) pg MCHC 34 (31-36) g/dl RDW 14 (10.5-15) % Plt Count 107 L (150-450) 10^3/ul MPV 8 (7.4-10.4) um3 Neut % (Auto) 85.4 H (38-83) % Lymph % (Auto) 6.7 L (25-47) % [place] % (Auto) 6.5 (1-9) % Eos % (Auto) 0 (0-6) % Baso % (Auto) 1.4 (0-2) % Absolute Neuts (auto) 5.3 (1.5-7.7) 10^3/ul Absolute Lymphs (auto) 0.4 L (1.0-4.8) 10^3/ul Absolute Monos (auto) 0.4 (0-0.8) 10^3/ul Absolute Eos (auto) 0 (0-0.6) 10^3/ul Absolute Basos (auto) 0.1 (0-0.2) 10^3/ul Absolute Nucleated RBC 0 10^3/ul Nucleated RBC % 0 Sodium 134 (133-145) mmol/L Potassium 4.2 (3.5-5.0) mmol/L Chloride 100 L (101-111) mmol/L Carbon Dioxide 27 (22-32) mmol/L Anion Gap 7 (2-11) mmol/L BUN 20 (6-24) mg/dL Creatinine 1.50 H (0.67-1.17) mg/dL Est GFR ( Amer) 57.6 (>60) Est GFR (Non-Af Amer) 44.8 (>60) BUN/Creatinine Ratio 13.3 (8-20) Glucose 109 H (70-100) mg/dL Lactic Acid 1.3 (0.5-2.0) mmol/L Calcium 9.7 (8.6-10.3) mg/dL Magnesium 2.1 (1.9-2.7) mg/dL Total Bilirubin 1.50 H (0.2-1.0) mg/dL AST 23 (13-39) U/L ALT 15 (7-52) U/L Alkaline Phosphatase 61 (34-104) U/L Troponin I 0.05 H* (<0.04) ng/mL Total Protein 7.2 (6.4-8.9) g/dL Albumin 3.9 (3.2-5.2) g/dL Globulin 3.3 (2-4) g/dL Albumin/Globulin Ratio 1.2 (1-3) TSH 0.48 (0.34-5.60) mcIU/mL Urine Color Urine Appearance Urine pH (5-9) Ur Specific [place] (1.010-1.030) Urine Protein (Negative) Urine Ketones (Negative) Urine Blood (Negative) Urine Nitrate (Negative) Urine Bilirubin (Negative) Urine Urobilinogen (Negative) Ur Leukocyte Esterase (Negative) Urine WBC (Auto) (Absent) Urine RBC (Auto) (Absent) Ur Squamous Epith Cells (Absent) Urine Bacteria (Absent) Hyaline Casts (Absent) Urine Yeast (Absent) Urine Glucose (Negative) 11/16/16 11/16/16 Range/Units 15:35 18:33 WBC (3.5-10.8) 10^3/ul RBC (4.0-5.4) 10^6/ul Hgb (14.0-18.0) g/dl Hct (42-52) % MCV (80-94) fL MCH (27-31) pg MCHC (31-36) g/dl RDW (10.5-15) % Plt Count (150-450) 10^3/ul MPV (7.4-10.4) um3 Neut % (Auto) (38-83) % Lymph % (Auto) (25-47) % [place] % (Auto) (1-9) % Eos % (Auto) (0-6) % Baso % (Auto) (0-2) % Absolute Neuts (auto) (1.5-7.7) 10^3/ul Absolute Lymphs (auto) (1.0-4.8) 10^3/ul Absolute Monos (auto) (0-0.8) 10^3/ul Absolute Eos (auto) (0-0.6) 10^3/ul Absolute Basos (auto) (0-0.2) 10^3/ul Absolute Nucleated RBC 10^3/ul Nucleated RBC % Sodium (133-145) mmol/L Potassium (3.5-5.0) mmol/L Chloride (101-111) mmol/L Carbon Dioxide (22-32) mmol/L Anion Gap (2-11) mmol/L BUN (6-24) mg/dL Creatinine (0.67-1.17) mg/dL Est GFR ( Amer) (>60) Est GFR (Non-Af Amer) (>60) BUN/Creatinine Ratio (8-20) Glucose (70-100) mg/dL Lactic Acid (0.5-2.0) mmol/L Calcium (8.6-10.3) mg/dL Magnesium (1.9-2.7) mg/dL Total Bilirubin (0.2-1.0) mg/dL AST (13-39) U/L ALT (7-52) U/L Alkaline Phosphatase (34-104) U/L Troponin I 0.07 H* (<0.04) ng/mL Total Protein (6.4-8.9) g/dL Albumin (3.2-5.2) g/dL Globulin (2-4) g/dL Albumin/Globulin Ratio (1-3) TSH (0.34-5.60) mcIU/mL Urine Color Alisha Urine Appearance Cloudy Urine pH 6.0 (5-9) Ur Specific [place] 1.019 (1.010-1.030) Urine Protein 2+(100 mg/dl) H (Negative) Urine Ketones Trace H (Negative) Urine Blood 3+ H (Negative) Urine Nitrate Negative (Negative) Urine Bilirubin Negative (Negative) Urine Urobilinogen Negative (Negative) Ur Leukocyte Esterase Negative (Negative) Urine WBC (Auto) 1+(6-10/hpf) H (Absent) Urine RBC (Auto) 3+(>10/hpf) H (Absent) Ur Squamous Epith Cells Present H (Absent) Urine Bacteria Absent (Absent) Hyaline Casts Present H (Absent) Urine Yeast Present H (Absent) Urine Glucose Negative (Negative) Microbiology and Other Data: Microbiology 11/17/16 16:20 Aerobic Blood Culture - Preliminary Blood Venous No Growth Day 1 Anaerobic Blood Culture - Preliminary No Growth Day 1 Assess/Plan/Problems-Billing Assessment: Fever, weakness in an 81 yo M with hx of MCI, HTN, BPH, valvular disease, COPD - Patient Problems (1) Weakness Current Visit: Yes Status: Acute Code(s): R53.1 - WEAKNESS SNOMED Code(s) : 61987910 Comment: And/or gait disorder. MRI negative, CTA negative. I requested a neurogology consultation. (2) Dementia Current Visit: Yes Status: Acute Code(s): F03.90 - UNSPECIFIED DEMENTIA WITHOUT BEHAVIORAL DISTURBANCE SNOMED Code(s): 38744472 Comment: Very poor historian and couldn't name the present month. At least early dementia. (3) COPD (chronic obstructive pulmonary disease) Current Visit: Yes Status: Acute Code(s): J44.9 - CHRONIC OBSTRUCTIVE PULMONARY DISEASE, UNSPECIFIED SNOMED Code(s): 56590371 Comment: Stable. Duoneb PRN ordered. (4) CAD (coronary artery disease) Current Visit: Yes Status: Acute Code(s): I25.10 - ATHSCL HEART DISEASE OF [place] CORONARY ARTERY W/O ANG PCTRS SNOMED Code(s): 82812100 Comment: Cardiac cath 2006: Mod disease LAD. (5) Thrombocytopenia Current Visit: Yes Status: Acute Code(s): D69.6 - THROMBOCYTOPENIA, UNSPECIFIED SNOMED Code(s): 806556514 Comment: Also leukopenia. Appreciate Oncology consult. Abd US showed splenomegaly. BMBx report pending. Possible ITP, consider steroids if platelts drop further. (6) Fever Current Visit: Yes Status: Acute Code(s): R50.9 - FEVER, UNSPECIFIED SNOMED Code(s): 158125035 Comment: Unclear source, ?viral infection. Continue to hold ABx for now. Abd US as below. ?related to thrombocytopenia. Will await results of BMBx. Third set of blood C&S x 2 ordered 11/21, also urine C&S and portable CXR.
--- NOTE | 2016-11-21 16:01 | RAD ---
INDICATION: Fever. COMPARISON: Comparison is made with prior chest x-ray study from November 18, 2016. TECHNIQUE: A portable view of the chest was obtained. FINDINGS: Cardiac and mediastinal contours appear to be within normal limits. The lungs are underinflated. There is a new small focal infiltrate at the right lung base. No pleural effusion is seen. Incidental note is made of multiple old right posterior rib fractures. IMPRESSION: NEW SMALL RIGHT BASILAR INFILTRATE.
--- NOTE | 2016-11-21 23:36 | CONS ---
CC: Dr. Joel Landa NEUROLOGY CONSULTATION: DATE OF CONSULT: 11/21/16 REQUESTING PHYSICIAN: Dr. Kirkpatrick. PRIMARY CARE DOCTOR: Dr. Joel Landa. REASON FOR CONSULT: Difficulty walking. HISTORY OF PRESENT ILLNESS: Patient is an 81-year-old male who presented to the ED on 11/15/16 with chief complaint of dizziness. Initial evaluation and workup did not reveal any apparent cause; however, because of generalized weakness and may be his difficulty walking with the walker, he was suggested to be evaluated for alf placement. The patient refused at that time and went home. He was brought back to the ED on 11/16/16, per the notes, with right facial droop and right-sided weakness and urinary incontinence. It seems he was found slumped over in his chair by his landlord. He had not been eating in the past couple of days according to the report of the [employer] delivery. The patient had some workup after he was admitted including MRI brain and CTA of the head and neck and eventually Neurology was consulted for further comments. He is also noted to have severe thrombocytopenia for which he is under workup. PAST MEDICAL HISTORY: Significant for: 1. COPD. 2. Hypertension. 3. Valvular heart disease. PAST SURGICAL HISTORY: 1. TURP. 2. History of bladder resection. 3. In 2012, had bilateral cataract extractions. 4. Left inguinal hernia repair. MEDICATIONS: Home medications include: 1. Atrovent inhaler. 2. Fluticasone nasal spray. 3. Proscar 5 mg p.o. daily. 4. Vitamin D 1000 units p.o. daily. 5. Lipitor 20 mg p.o. daily. 6. Low-dose aspirin 81 mg p.o. daily. 7. Albuterol. Current in-house medications: 1. Tylenol 650 mg p.o. q. 6 hours p.r.n. 2. Albuterol. 3. Lipitor 20 mg p.o. daily. 4. Vitamin D. 5. Proscar 5 mg p.o. daily. 6. Flonase nasal spray. 7. Polytrim ophthalmic drops. ALLERGIES: No known drug allergies. FAMILY HISTORY: Father had history of throat cancer. Also history of coronary artery disease in both parents. SOCIAL HISTORY: The patient quit smoking a few years ago. He lives alone. No history of alcohol abuse. PHYSICAL EXAM: Blood pressure 124/48, pulse rate 58, respiratory rate 34, temperature 101.7. The patient is fatigued and drowsy, but arousable by verbal stimulation. He answers questions, mostly appropriately, although in a very low tone and seems tired. He is able to tell me his name and date of , and is oriented to place but not to time. Pupils are symmetric about 3 mm and reactive to light. Extraocular movements are intact. There is slight facial droop on the right side of a central type. Tongue is in midline. V1 to V3, as much as the patient is able to operate, seems intact to light touch and pinprick. There is no clear pronator drift on the exam. Again, the patient's participation and exam is limited, but as far as he is able to participate, he seems like giving full strength equally in the right and both upper and lower extremities. Sensation is also intact to light touch and pinprick in the upper and lower extremities. Deep tendon reflexes are 1+ in the lower extremities and are symmetric and also in the upper extremities and are symmetric. He is able to do [id number] bilaterally. Heart is regular rate and rhythm. Lungs are clear to auscultation. Abdomen is soft and nontender. The patient was not walked due to generalized fatigue. DIAGNOSTIC STUDIES/LAB DATA: WBC 2.9, hemoglobin 13.4, hematocrit 40, platelets was 28,000 on 11/19/16. INR 1.26. PTT 34.7. Sodium 133, potassium 3.7. BUN 34, creatinine 1.15, calcium 8.7, AST 66, ALT 49, alkaline phosphatase is 77. IMAGING: CTA of the head and neck showed approximate 50% short segmental ostial stenosis at the region of the right common carotid artery from brachiocephalic artery. Negative for right or left internal carotid artery stenosis. Negative for central intracranial arterial large vessel occlusion or stenosis. MRI of the brain showed cortical atrophy with chronic microvascular ischemic changes with no acute findings. ASSESSMENT AND PLAN: An 81-year-old male with history of generalized weakness presented on 11/16/16 with right-sided facial droop, and per the notes, right- sided weakness and urinary incontinence. Currently on neurological exam, the patient does have some right facial droop but there is no clear lateralization on the strength in the extremities or on the sensory exam. MRI has been negative for an acute stroke. The patient has been having low grade fever of unknown origin since admission. Considering the patient has low platelets, there might be a bone marrow or hematological problem present, which is under workup. The etiology of the patient's facial droop is not clear to me at this point, as the MRI did not show any signs of stroke, but considering his fever and involvement of cranial nerves he may need an LP. Considering his low platelet, this is not practical or safe at this time. If the issue of thrombocytopenia resolves and he does not improve can consider a lumbar puncture. Also, serology for Lyme can be considered. [id number]/CPS #: [id number] MTDD
[2016-11-22] MEDS: Polymyx/Trimethoprim OPTH* 10 ML BTL RIGHT EYE SCH ×6 (00:59→19:59)
[2016-11-22] MEDS: Acetaminophen TAB* 325 MG PO PRN ×2 (04:15→13:25)
[2016-11-22] MEDS: ZOSYN 3.375 GM Q8H per EXTENDED INFUSION IVPB SCH ×6 (04:15→19:59)
[2016-11-22] MEDS: Cholecalciferol TAB* 1000 UNITS PO SCH (09:07)
[2016-11-22] MEDS: Fluticasone NASAL SPRAY 50MCG* 16 gm SPRAY BTL BOTH NARES SCH (09:07)
[2016-11-22] MEDS: Atorvastatin* 20 MG TAB PO SCH (09:07)
[2016-11-22] MEDS: Finasteride TAB* 5 MG PO SCH (09:07)
--- NOTE | 2016-11-22 10:07 | PN ---
Subjective Date of Service: 11/22/16 Interval History: No c/o. He denies cough, SOB, chest pain. Appetite OK. No bowel C/O. He asks when he can go home. Family History: Unchanged from Admission Social History: Unchanged from Admission Past Medical History: Unchanged from Admission Objective Active Medications: Acetaminophen (Tylenol Tab*) 650 mg PO Q6H PRN PRN Reason: FEVER/PAIN Last Admin: 11/22/16 04:15 Dose: 650 mg Albuterol/Ipratropium (Duoneb (Albuterol 2.5 Mg/Ipratropium 0.5 Mg)) 1 neb INH Q6H PRN PRN Reason: SHORTNESS OF BREATH Atorvastatin Calcium (Lipitor*) 20 mg PO DAILY [facility] Last Admin: 11/22/16 09:07 Dose: 20 mg Cholecalciferol (Vitamin D Tab*) 1,000 units PO DAILY [facility] Last Admin: 11/22/16 09:07 Dose: 1,000 units Finasteride (Proscar Tab*) 5 mg PO DAILY [facility] Last Admin: 11/22/16 09:07 Dose: 5 mg Fluticasone Propionate (Flonase Nasal [place] 50mcg*) 2 spray BOTH NARES DAILY [facility] Last Admin: 11/22/16 09:07 Dose: 2 spray Piperacillin Sod/Tazobactam (Sod 3.375 gm/ Sodium Chloride) 100 mls @ 25 mls/ hr IVPB Q8H [facility] Last Admin: 11/22/16 04:15 Dose: 25 mls/hr Polymyxin/Trimethoprim Sulfate (Polytrim Ophth*) 1 drop RIGHT EYE Q4H [facility] Last Admin: 11/22/16 09:07 Dose: 1 drop Vital Signs 11/21/16 11/21/16 11/21/16 12:54 15:05 20:00 Temperature 98.3 F 101.7 F Pulse Rate 58 Respiratory 34 22 Rate Blood Pressure 124/48 (mmHg) O2 Sat by Pulse 89 Oximetry 11/21/16 11/22/16 11/22/16 23:19 07:49 07:51 Temperature 97.2 F 97.3 F Pulse Rate 58 53 Respiratory 16 16 18 Rate Blood Pressure 94/53 102/50 (mmHg) O2 Sat by Pulse 100 100 Oximetry 11/22/16 08:00 Temperature Pulse Rate Respiratory 16 Rate Blood Pressure (mmHg) O2 Sat by Pulse Oximetry Oxygen Devices in Use Now: None Appearance: Alert, in a chair. In fair spirits. Looks comfortable. No cough during my visit. WOB good. Eyes: No Scleral Icterus Respiratory: Symmetrical Chest Expansion and Respiratory Effort, Clear to Auscultation, Clear to Percussion Cardiovascular: NL Sounds; No Murmurs; No JVD, No Edema, - - irreg Extremities: No Edema, No Clubbing, Cyanosis, - Skin: No Rash or Ulcers, No Nodules or Sclerosis, - Neurological: Alert and Oriented x 3, NL Sensation Result Diagrams: 11/21/16 04:57 11/20/16 05:20 Additional Lab and Data: Lab Results 11/16/16 11/16/16 11/16/16 Range/Units 12:18 12:18 12:18 WBC 6.1 (3.5-10.8) 10^3/ul RBC 5.48 H (4.0-5.4) 10^6/ul Hgb 17.1 (14.0-18.0) g/dl Hct 50 (42-52) % MCV 92 (80-94) fL MCH 31 (27-31) pg MCHC 34 (31-36) g/dl RDW 14 (10.5-15) % Plt Count 107 L (150-450) 10^3/ul MPV 8 (7.4-10.4) um3 Neut % (Auto) 85.4 H (38-83) % Lymph % (Auto) 6.7 L (25-47) % [place] % (Auto) 6.5 (1-9) % Eos % (Auto) 0 (0-6) % Baso % (Auto) 1.4 (0-2) % Absolute Neuts (auto) 5.3 (1.5-7.7) 10^3/ul Absolute Lymphs (auto) 0.4 L (1.0-4.8) 10^3/ul Absolute Monos (auto) 0.4 (0-0.8) 10^3/ul Absolute Eos (auto) 0 (0-0.6) 10^3/ul Absolute Basos (auto) 0.1 (0-0.2) 10^3/ul Absolute Nucleated RBC 0 10^3/ul Nucleated RBC % 0 Sodium 134 (133-145) mmol/L Potassium 4.2 (3.5-5.0) mmol/L Chloride 100 L (101-111) mmol/L Carbon Dioxide 27 (22-32) mmol/L Anion Gap 7 (2-11) mmol/L BUN 20 (6-24) mg/dL Creatinine 1.50 H (0.67-1.17) mg/dL Est GFR ( Amer) 57.6 (>60) Est GFR (Non-Af Amer) 44.8 (>60) BUN/Creatinine Ratio 13.3 (8-20) Glucose 109 H (70-100) mg/dL Lactic Acid 1.3 (0.5-2.0) mmol/L Calcium 9.7 (8.6-10.3) mg/dL Magnesium 2.1 (1.9-2.7) mg/dL Total Bilirubin 1.50 H (0.2-1.0) mg/dL AST 23 (13-39) U/L ALT 15 (7-52) U/L Alkaline Phosphatase 61 (34-104) U/L Troponin I 0.05 H* (<0.04) ng/mL Total Protein 7.2 (6.4-8.9) g/dL Albumin 3.9 (3.2-5.2) g/dL Globulin 3.3 (2-4) g/dL Albumin/Globulin Ratio 1.2 (1-3) TSH 0.48 (0.34-5.60) mcIU/mL Urine Color Urine Appearance Urine pH (5-9) Ur Specific [place] (1.010-1.030) Urine Protein (Negative) Urine Ketones (Negative) Urine Blood (Negative) Urine Nitrate (Negative) Urine Bilirubin (Negative) Urine Urobilinogen (Negative) Ur Leukocyte Esterase (Negative) Urine WBC (Auto) (Absent) Urine RBC (Auto) (Absent) Ur Squamous Epith Cells (Absent) Urine Bacteria (Absent) Hyaline Casts (Absent) Urine Yeast (Absent) Urine Glucose (Negative) 11/16/16 11/16/16 Range/Units 15:35 18:33 WBC (3.5-10.8) 10^3/ul RBC (4.0-5.4) 10^6/ul Hgb (14.0-18.0) g/dl Hct (42-52) % MCV (80-94) fL MCH (27-31) pg MCHC (31-36) g/dl RDW (10.5-15) % Plt Count (150-450) 10^3/ul MPV (7.4-10.4) um3 Neut % (Auto) (38-83) % Lymph % (Auto) (25-47) % [place] % (Auto) (1-9) % Eos % (Auto) (0-6) % Baso % (Auto) (0-2) % Absolute Neuts (auto) (1.5-7.7) 10^3/ul Absolute Lymphs (auto) (1.0-4.8) 10^3/ul Absolute Monos (auto) (0-0.8) 10^3/ul Absolute Eos (auto) (0-0.6) 10^3/ul Absolute Basos (auto) (0-0.2) 10^3/ul Absolute Nucleated RBC 10^3/ul Nucleated RBC % Sodium (133-145) mmol/L Potassium (3.5-5.0) mmol/L Chloride (101-111) mmol/L Carbon Dioxide (22-32) mmol/L Anion Gap (2-11) mmol/L BUN (6-24) mg/dL Creatinine (0.67-1.17) mg/dL Est GFR ( Amer) (>60) Est GFR (Non-Af Amer) (>60) BUN/Creatinine Ratio (8-20) Glucose (70-100) mg/dL Lactic Acid (0.5-2.0) mmol/L Calcium (8.6-10.3) mg/dL Magnesium (1.9-2.7) mg/dL Total Bilirubin (0.2-1.0) mg/dL AST (13-39) U/L ALT (7-52) U/L Alkaline Phosphatase (34-104) U/L Troponin I 0.07 H* (<0.04) ng/mL Total Protein (6.4-8.9) g/dL Albumin (3.2-5.2) g/dL Globulin (2-4) g/dL Albumin/Globulin Ratio (1-3) TSH (0.34-5.60) mcIU/mL Urine Color Alisha Urine Appearance Cloudy Urine pH 6.0 (5-9) Ur Specific [place] 1.019 (1.010-1.030) Urine Protein 2+(100 mg/dl) H (Negative) Urine Ketones Trace H (Negative) Urine Blood 3+ H (Negative) Urine Nitrate Negative (Negative) Urine Bilirubin Negative (Negative) Urine Urobilinogen Negative (Negative) Ur Leukocyte Esterase Negative (Negative) Urine WBC (Auto) 1+(6-10/hpf) H (Absent) Urine RBC (Auto) 3+(>10/hpf) H (Absent) Ur Squamous Epith Cells Present H (Absent) Urine Bacteria Absent (Absent) Hyaline Casts Present H (Absent) Urine Yeast Present H (Absent) Urine Glucose Negative (Negative) Microbiology and Other Data: Microbiology 11/17/16 16:20 Aerobic Blood Culture - Preliminary Blood Venous No Growth Day 1 Anaerobic Blood Culture - Preliminary No Growth Day 1 Assess/Plan/Problems-Billing Assessment: Fever, weakness in an 81 yo M with hx of MCI, HTN, BPH, valvular disease, COPD - Patient Problems (1) Weakness Current Visit: Yes Status: Acute Code(s): R53.1 - WEAKNESS SNOMED Code(s) : 22795676 Comment: And/or gait disorder. MRI negative, CTA negative. Neurogology consultation appreciated. Lyme screen ordered. (2) Dementia Current Visit: Yes Status: Acute Code(s): F03.90 - UNSPECIFIED DEMENTIA WITHOUT BEHAVIORAL DISTURBANCE SNOMED Code(s): 58430138 Comment: Very poor historian and couldn't name the present month. At least early dementia. (3) COPD (chronic obstructive pulmonary disease) Current Visit: Yes Status: Acute Code(s): J44.9 - CHRONIC OBSTRUCTIVE PULMONARY DISEASE, UNSPECIFIED SNOMED Code(s): 29898187 Comment: Stable. Duoneb PRN ordered. (4) CAD (coronary artery disease) Current Visit: Yes Status: Acute Code(s): I25.10 - ATHSCL HEART DISEASE OF [place] CORONARY ARTERY W/O ANG PCTRS SNOMED Code(s): 15402601 Comment: Cardiac cath 2006: Mod disease LAD. Occ bursts tachycardia, would like to get 12-lead ECG during a tachycardic spell. (5) Thrombocytopenia Current Visit: Yes Status: Acute Code(s): D69.6 - THROMBOCYTOPENIA, UNSPECIFIED SNOMED Code(s): 447863292 Comment: Also leukopenia. Appreciate Oncology consult. Abd US showed splenomegaly. BMBx report pending. Possible ITP, consider steroids if platelts drop further. (6) Fever Current Visit: Yes Status: Acute Code(s): R50.9 - FEVER, UNSPECIFIED SNOMED Code(s): 949839569 Comment: Unclear source, ?viral infection. Continue to hold ABx for now. Abd US as below. ?related to thrombocytopenia. Will await results of BMBx. (7) Pneumonia Current Visit: Yes Status: Acute Code(s): J18.9 - PNEUMONIA, UNSPECIFIED ORGANISM SNOMED Code(s): 609080191 Comment: R basilar infiltrate on CXR 11/21/16. Pip/williams started 11/22 4 AM.
[2016-11-23] MEDS: Polymyx/Trimethoprim OPTH* 10 ML BTL RIGHT EYE SCH ×7 (00:30→23:54)
[2016-11-23] MEDS: ZOSYN 3.375 GM Q8H per EXTENDED INFUSION IVPB SCH ×2 (04:40)
[2016-11-23 06:03] LABS: Hematocrit 38 % (42-52); Hemoglobin 13.1 g/dl (14.0-18.0); Mean Corpuscular HGB Conc 35 g/dl (31-36); Mean Corpuscular Hemoglobin 32 pg (27-31); Mean Corpuscular Volume 93 fL (80-94); Red Blood Count 4.08 10^6/ul (4.0-5.4); Red Cell Distribution Width 15 % (10.5-15)
[2016-11-23 06:04] LABS: Comments Flag Yes
[2016-11-23 06:05] LABS: Add Diff/Slide Review? Slide Review Added
[2016-11-23] MEDS: Cholecalciferol TAB* 1000 UNITS PO SCH (08:10)
[2016-11-23] MEDS: Finasteride TAB* 5 MG PO SCH (08:10)
[2016-11-23] MEDS: Atorvastatin* 20 MG TAB PO SCH (08:10)
[2016-11-23] MEDS: Fluticasone NASAL SPRAY 50MCG* 16 gm SPRAY BTL BOTH NARES SCH (08:11)
[2016-11-23] MEDS ORDERED: Iodixanol* (CONTRAST) 320 MG/ML 100 ML SDV IV ONE (10:55)
[2016-11-23] MEDS ORDERED: Acetaminophen SUPP* 650 MG SUPP PR PRN (11:44)
--- NOTE | 2016-11-23 11:50 | RAD ---
HISTORY: PE protocol, elevated troponin COMPARISONS: May 23, 2009 TECHNIQUE: Multiple contiguous axial CT scans of the chest were obtained after the administration of nonionic intravenous contrast, timed to the pulmonary arterial phase of contrast enhancement.. Coronal and sagittal multiplanar reformations are also submitted for review. FINDINGS: The study is limited by patient motion artifact. NECK AND THYROID: The lower neck and thyroid are unremarkable. CHEST WALL: There is no lower cervical, axillary, or supraclavicular lymphadenopathy by size criteria. HEART AND PERICARDIUM: The heart is unremarkable. AORTA AND PULMONARY VASCULATURE: Evaluation is limited by patient breathing motion artifact. There is no pulmonary arterial filling defect to suggest pulmonary embolism. There is no linear filling defect within the aorta to suggest aortic dissection. MEDIASTINUM: There is no mediastinal lymphadenopathy by size criteria. HUMBLE: There is no hilar lymphadenopathy by size criteria. AIRWAY AND ESOPHAGUS: The airway is unremarkable, without endobronchial filling defect. The esophagus is grossly normal. LUNG PARENCHYMA: There is subsegmental consolidation of the right lung base. PLEURA: There are small bilateral pleural effusions. UPPER ABDOMEN: The upper abdomen is unremarkable. BONES AND SOFT TISSUES: No bone or soft tissue abnormalities are noted. OTHER: None. IMPRESSION: 1. LIMITED STUDY. 2. WITHIN THE LIMITATIONS OF THE STUDY, THERE IS NO PULMONARY ARTERIAL FILLING DEFECT TO SUGGEST PULMONARY EMBOLISM. 3. RIGHT BASILAR CONSOLIDATION WITH SMALL BILATERAL PLEURAL EFFUSIONS
--- NOTE | 2016-11-23 11:58 | PN ---
Subjective Date of Service: 11/23/16 Interval History: Patient denies pain, SOB, offers no c/o. Family History: Unchanged from Admission Social History: Unchanged from Admission Past Medical History: Unchanged from Admission Objective Active Medications: Acetaminophen (Tylenol Tab*) 650 mg PO Q6H PRN PRN Reason: FEVER/PAIN Last Admin: 11/22/16 13:25 Dose: 650 mg Acetaminophen (Tylenol Supp*) [address] Q6H PRN PRN Reason: TEMP EQUAL OR GREATER 101 F Albuterol/Ipratropium (Duoneb (Albuterol 2.5 Mg/Ipratropium 0.5 Mg)) 1 neb INH Q6H PRN PRN Reason: SHORTNESS OF BREATH Last Admin: 11/23/16 09:26 Dose: 1 neb Atorvastatin Calcium (Lipitor*) 20 mg PO DAILY [facility] Last Admin: 11/23/16 08:10 Dose: 20 mg Cholecalciferol (Vitamin D Tab*) 1,000 units PO DAILY [facility] Last Admin: 11/23/16 08:10 Dose: 1,000 units Finasteride (Proscar Tab*) 5 mg PO DAILY [facility] Last Admin: 11/23/16 08:10 Dose: 5 mg Fluticasone Propionate (Flonase Nasal [place] 50mcg*) 2 spray BOTH NARES DAILY [facility] Last Admin: 11/23/16 08:11 Dose: 2 spray Ceftriaxone Sodium 2 gm/ (Sodium Chloride) 100 mls @ 200 mls/hr IVPB Q12H [facility] Acyclovir Sodium 700 mg/ (Sodium Chloride) 114 mls @ 114 mls/hr IVPB Q8H [facility] Polymyxin/Trimethoprim Sulfate (Polytrim Ophth*) 1 drop RIGHT EYE Q4H [facility] Last Admin: 11/23/16 08:10 Dose: 1 drop Vital Signs 11/22/16 11/22/16 11/22/16 13:24 15:17 19:18 Temperature 100.2 F 98.3 F 98.2 F Pulse Rate 73 Respiratory 20 22 Rate Blood Pressure 106/49 (mmHg) O2 Sat by Pulse 98 Oximetry 11/22/16 11/22/16 11/23/16 20:00 23:48 03:19 Temperature 97.4 F 97.4 F Pulse Rate 58 59 Respiratory 22 16 16 Rate Blood Pressure 102/54 112/62 (mmHg) O2 Sat by Pulse 100 100 Oximetry 11/23/16 11/23/16 11/23/16 07:19 08:00 09:26 Temperature 98.3 F Pulse Rate 62 70 Respiratory 28 16 26 Rate Blood Pressure 119/56 (mmHg) O2 Sat by Pulse 100 100 Oximetry Oxygen Devices in Use Now: Nasal Cannula Appearance: Lethargic, partly up in bed, head turned to the R. Neutral affect. Looks comfortable. Eyes: No Scleral Icterus Respiratory: Symmetrical Chest Expansion and Respiratory Effort, Clear to Auscultation, Clear to Percussion Cardiovascular: NL Sounds; No Murmurs; No JVD, RRR, No Edema, - Extremities: No Edema, No Clubbing, Cyanosis, - Skin: No Rash or Ulcers, No Nodules or Sclerosis, - Neurological: - - Lethargic. Speech dysarthric as before. Very passive. Result Diagrams: 11/23/16 05:23 11/20/16 05:20 Additional Lab and Data: Lab Results 11/16/16 11/16/16 11/16/16 Range/Units 12:18 12:18 12:18 WBC 6.1 (3.5-10.8) 10^3/ul RBC 5.48 H (4.0-5.4) 10^6/ul Hgb 17.1 (14.0-18.0) g/dl Hct 50 (42-52) % MCV 92 (80-94) fL MCH 31 (27-31) pg MCHC 34 (31-36) g/dl RDW 14 (10.5-15) % Plt Count 107 L (150-450) 10^3/ul MPV 8 (7.4-10.4) um3 Neut % (Auto) 85.4 H (38-83) % Lymph % (Auto) 6.7 L (25-47) % [place] % (Auto) 6.5 (1-9) % Eos % (Auto) 0 (0-6) % Baso % (Auto) 1.4 (0-2) % Absolute Neuts (auto) 5.3 (1.5-7.7) 10^3/ul Absolute Lymphs (auto) 0.4 L (1.0-4.8) 10^3/ul Absolute Monos (auto) 0.4 (0-0.8) 10^3/ul Absolute Eos (auto) 0 (0-0.6) 10^3/ul Absolute Basos (auto) 0.1 (0-0.2) 10^3/ul Absolute Nucleated RBC 0 10^3/ul Nucleated RBC % 0 Sodium 134 (133-145) mmol/L Potassium 4.2 (3.5-5.0) mmol/L Chloride 100 L (101-111) mmol/L Carbon Dioxide 27 (22-32) mmol/L Anion Gap 7 (2-11) mmol/L BUN 20 (6-24) mg/dL Creatinine 1.50 H (0.67-1.17) mg/dL Est GFR ( Amer) 57.6 (>60) Est GFR (Non-Af Amer) 44.8 (>60) BUN/Creatinine Ratio 13.3 (8-20) Glucose 109 H (70-100) mg/dL Lactic Acid 1.3 (0.5-2.0) mmol/L Calcium 9.7 (8.6-10.3) mg/dL Magnesium 2.1 (1.9-2.7) mg/dL Total Bilirubin 1.50 H (0.2-1.0) mg/dL AST 23 (13-39) U/L ALT 15 (7-52) U/L Alkaline Phosphatase 61 (34-104) U/L Troponin I 0.05 H* (<0.04) ng/mL Total Protein 7.2 (6.4-8.9) g/dL Albumin 3.9 (3.2-5.2) g/dL Globulin 3.3 (2-4) g/dL Albumin/Globulin Ratio 1.2 (1-3) TSH 0.48 (0.34-5.60) mcIU/mL Urine Color Urine Appearance Urine pH (5-9) Ur Specific [place] (1.010-1.030) Urine Protein (Negative) Urine Ketones (Negative) Urine Blood (Negative) Urine Nitrate (Negative) Urine Bilirubin (Negative) Urine Urobilinogen (Negative) Ur Leukocyte Esterase (Negative) Urine WBC (Auto) (Absent) Urine RBC (Auto) (Absent) Ur Squamous Epith Cells (Absent) Urine Bacteria (Absent) Hyaline Casts (Absent) Urine Yeast (Absent) Urine Glucose (Negative) 06/19/17 06/19/17 Range/Units 15:35 18:33 WBC (3.5-10.8) 10^3/ul RBC (4.0-5.4) 10^6/ul Hgb (14.0-18.0) g/dl Hct (42-52) % MCV (80-94) fL MCH (27-31) pg MCHC (31-36) g/dl RDW (10.5-15) % Plt Count (150-450) 10^3/ul MPV (7.4-10.4) um3 Neut % (Auto) (38-83) % Lymph % (Auto) (25-47) % [place] % (Auto) (1-9) % Eos % (Auto) (0-6) % Baso % (Auto) (0-2) % Absolute Neuts (auto) (1.5-7.7) 10^3/ul Absolute Lymphs (auto) (1.0-4.8) 10^3/ul Absolute Monos (auto) (0-0.8) 10^3/ul Absolute Eos (auto) (0-0.6) 10^3/ul Absolute Basos (auto) (0-0.2) 10^3/ul Absolute Nucleated RBC 10^3/ul Nucleated RBC % Sodium (133-145) mmol/L Potassium (3.5-5.0) mmol/L Chloride (101-111) mmol/L Carbon Dioxide (22-32) mmol/L Anion Gap (2-11) mmol/L BUN (6-24) mg/dL Creatinine (0.67-1.17) mg/dL Est GFR ( Amer) (>60) Est GFR (Non-Af Amer) (>60) BUN/Creatinine Ratio (8-20) Glucose (70-100) mg/dL Lactic Acid (0.5-2.0) mmol/L Calcium (8.6-10.3) mg/dL Magnesium (1.9-2.7) mg/dL Total Bilirubin (0.2-1.0) mg/dL AST (13-39) U/L ALT (7-52) U/L Alkaline Phosphatase (34-104) U/L Troponin I 0.07 H* (<0.04) ng/mL Total Protein (6.4-8.9) g/dL Albumin (3.2-5.2) g/dL Globulin (2-4) g/dL Albumin/Globulin Ratio (1-3) TSH (0.34-5.60) mcIU/mL Urine Color Alisha Urine Appearance Cloudy Urine pH 6.0 (5-9) Ur Specific [place] 1.019 (1.010-1.030) Urine Protein 2+(100 mg/dl) H (Negative) Urine Ketones Trace H (Negative) Urine Blood 3+ H (Negative) Urine Nitrate Negative (Negative) Urine Bilirubin Negative (Negative) Urine Urobilinogen Negative (Negative) Ur Leukocyte Esterase Negative (Negative) Urine WBC (Auto) 1+(6-10/hpf) H (Absent) Urine RBC (Auto) 3+(>10/hpf) H (Absent) Ur Squamous Epith Cells Present H (Absent) Urine Bacteria Absent (Absent) Hyaline Casts Present H (Absent) Urine Yeast Present H (Absent) Urine Glucose Negative (Negative) Microbiology and Other Data: Microbiology 11/17/16 16:20 Aerobic Blood Culture - Preliminary Blood Venous No Growth Day 1 Anaerobic Blood Culture - Preliminary No Growth Day 1 Assess/Plan/Problems-Billing Assessment: Fever, weakness in an 81 yo M with hx of MCI, HTN, BPH, valvular disease, COPD - Patient Problems (1) Weakness Current Visit: Yes Status: Acute Code(s): R53.1 - WEAKNESS SNOMED Code(s) : 02644242 Comment: And/or gait disorder. MRI negative, CTA negative. Neurogology consultation appreciated. Lyme screen ordered. (2) Dementia Current Visit: Yes Status: Acute Code(s): F03.90 - UNSPECIFIED DEMENTIA WITHOUT BEHAVIORAL DISTURBANCE SNOMED Code(s): 11807342 Comment: Very poor historian and couldn't name the present month. At least early dementia. (3) COPD (chronic obstructive pulmonary disease) Current Visit: Yes Status: Acute Code(s): J44.9 - CHRONIC OBSTRUCTIVE PULMONARY DISEASE, UNSPECIFIED SNOMED Code(s): 54264785 Comment: O2 requirement higher, on 8 L/min O2 on 11/23. CTA has motion artifact, no PE seen. (4) CAD (coronary artery disease) Current Visit: Yes Status: Acute Code(s): I25.10 - ATHSCL HEART DISEASE OF [place] CORONARY ARTERY W/O ANG PCTRS SNOMED Code(s): 48120375 Comment: Cardiac cath 2006: Mod disease LAD. Occ bursts tachycardia, would like to get 12-lead ECG during a tachycardic spell. (5) Thrombocytopenia Current Visit: Yes Status: Acute Code(s): D69.6 - THROMBOCYTOPENIA, UNSPECIFIED SNOMED Code(s): 114969190 Comment: Also leukopenia. Appreciate Oncology consult. Abd US showed splenomegaly. BMBx report pending. Possible ITP, consider steroids if platelts drop further. (6) Fever Current Visit: Yes Status: Acute Code(s): R50.9 - FEVER, UNSPECIFIED SNOMED Code(s): 630328992 Comment: Did not respond to pip/williams short course. CXR showed pneumonia. Antibiotic changed to cover mentingitis and H. simplex. Discussed with Dr. Adams. (7) Pneumonia Current Visit: Yes Status: Acute Code(s): J18.9 - PNEUMONIA, UNSPECIFIED ORGANISM SNOMED Code(s): 664094933 Comment: R basilar infiltrate on CXR 11/21/16. Pip/williams started 11/22 4 AM, changed to ceftriaxone 11/23.
--- NOTE | 2016-11-23 16:40 | CONS ---
FOLLOWUP NOTE: DATE OF SERVICE: 11/23/16 HISTORY: Mr. Elder Hernandez is an 81-year-old gentleman who was admitted on the for weakness and dizziness. He was noted to have right facial weakness and initially right-sided weakness; however, on neurologic consult, no clear focality could be seen other than face. He was also noted to have urinary incontinence and was found slumped forward. He had a white count (which has progressively declined), neutropenia, progressive decrease in platelet count, which was measured at 28. His neutrophil percentage peaked at 88.8. He has had an ongoing low-grade fever, which just recently last night increased to 102.8. His recent chest x-ray showed a small right basilar infiltrate. On workup of focal neurologic cause, he had an MRI of the brain which showed no evidence of stroke. There was evidence of atrophy and periventricular small vessel ischemic disease. This film was reviewed directly. This occurs in the setting of a history of hypertension, valvular disease, history of smoking, and recent history of squamous cell carcinoma. At home he is on Lipitor and aspirin. He is currently off aspirin. His CTA of the brain and neck showed no evidence of focal stenosis. His echocardiogram showed ejection fraction of 60% to 65%. Please see report for further details. Heme/Onc has become involved due to his decreasing white count and platelets. His bone marrow biopsy is pending. Question of ITP secondary to virus was raised on differential diagnosis. On today's visit, Mr. Hernandez could provide no history. He was on oxygen mask. He had been noted to have declining oxygen intermittently, increased fever, more difficulty with breathing. My exam was limited. MEDICATIONS: List reviewed. PHYSICAL EXAMINATION: On examination today, his most recent vital signs included temperature of 97.4, heart rate was 70, respiratory rate 26, oxygen of 100%, blood pressure of 102/54. He had a regular cardiac rhythm. His breathing was fast with some decreased air entry at the bases. There was no carotid bruit. He had an oxygen mask on. In taking this off and evaluating his facial expression, there was clear facial weakness in the lower part of right side of his face. I could not get him to move his eyebrows or close his eyes and therefore cannot comment on whether there was upper facial weakness. He did look at the examiner but did not participate in moving his eyes to command. He did blink to threat bilaterally. Other than a little bit of a sound in response to questions, there was not much verbal output. His tone was equal in his upper and lower extremities and was okay. He did not participate, however, in strength exam. He did spontaneously move his left arm more than his right, but it was minimal. His lower extremities similarly, there was no significant movement. His feet were cold and cool. His pulses, however, were intact. His reflexes were 1+ in the upper extremity, 1+ at the right knee, absent at the left knee, absent at the ankles. Toes were equivocal. He could not participate further in sensory coordination or gait exam. DIAGNOSTIC STUDIES/LAB DATA: Data includes MRI of the brain as mentioned above which showed atrophy and small vessel ischemic disease in the periventricular area with no new focal lesion. CTA of the brain and neck, showed no significant stenosis. Please see reports for details. Echocardiogram has been performed, which showed no clear cause for events. Please see report for details. His most recent CBC showed a white count of 3.0, hemoglobin of 13.1, hematocrit 38, platelets clumped. The most recent report was at 28. His neutrophil percentage was elevated up to 87.3%, and is now within normal limits. His metabolic panel showed a chloride that was low at 100. His BUN was elevated at 34, creatinine was 1.15 with a GFR estimated at 60.9. His BUN and creatinine ratio was 29.6, glucose was 120. His total bilirubin, direct bilirubin were elevated at 2.2 and 1.2 respectively. His AST was elevated at 66. His troponin was 0.07, repeat at 0.05. Total protein low at 5.7. Albumin 2.9. His hepatitis panel and HIV 1 and 2 rapid antibody were nonreactive. IMPRESSION: An 81-year-old gentleman admitted with weakness, initially thought to be right-sided; however, on neurologic consult this weekend felt to be symmetric with exception of the face, who has had progressive decline in the setting of declining white count, platelets, infiltrate on chest x-ray. Temperature was recorded at 102.8 last night. Negative blood and urine cultures were noted. The overall presentation is very concerning for an infection and the focal facial weakness raised the question of [employer] process. At this point, I would really like to see LP results; however, low platelet count presents significant risk. His most recent counts repeatedly are clumped making safety unclear. Accordingly, I would suggest getting ID involved to provide [employer] coverage as we are unable to get spinal fluid to evaluate. The focal facial weakness raised the question of Lyme and the decreasing white blood cell count and platelets may represent other tick borne illnesses, and therefore a tick borne illness panel is being drawn. Certainly, I cannot exclude HSV and accordingly spoken to Dr. Kirkpatrick about starting acyclovir and providing [employer] coverage with antibiotics such as ceftriaxone, doxycycline. To further flush out differential diagnosis, and narrow coverage as much as possible with antibiotics. I would suggest getting the ID involved. Heme/Onc workup is pending. He is going for a CTA of the chest for differential diagnosis of PE. Overall, the clinical decline is very concerning. Case was discussed repeatedly with Dr. Kirkpatrick today. TIME SPENT: Over 45 minutes was spent in direct [id number] patient care. [id number]/[facility] #: [id number] MTDD
[2016-11-23] MEDS ORDERED: Ondansetron INJ* 2 MG/ML VIAL IV PRN (23:44)
[2016-11-24] MEDS: Polymyx/Trimethoprim OPTH* 10 ML BTL RIGHT EYE SCH ×5 (04:04→19:41)
[2016-11-24] MEDS: Acetaminophen TAB* 325 MG PO PRN (06:53)
[2016-11-24] MEDS: Atorvastatin* 20 MG TAB PO SCH (08:48)
[2016-11-24] MEDS: Finasteride TAB* 5 MG PO SCH (08:48)
[2016-11-24] MEDS: Cholecalciferol TAB* 1000 UNITS PO SCH (08:48)
[2016-11-24] MEDS: Fluticasone NASAL SPRAY 50MCG* 16 gm SPRAY BTL BOTH NARES SCH (08:53)
[2016-11-24] MEDS ORDERED: AMIKACIN ONE (10:30)
--- NOTE | 2016-11-24 11:03 | PN ---
Subjective Date of Service: 11/24/16 Interval History: Not clear if he could make his needs known. No clear c/o at this time. Family History: Unchanged from Admission Social History: Unchanged from Admission Past Medical History: Unchanged from Admission Objective Active Medications: Acetaminophen (Tylenol Tab*) 650 mg PO Q6H PRN PRN Reason: FEVER/PAIN Last Admin: 11/24/16 06:53 Dose: 650 mg Acetaminophen (Tylenol Supp*) 650 mg [place] Q6H PRN PRN Reason: TEMP EQUAL OR GREATER 101 F Last Admin: 11/23/16 12:27 Dose: 650 mg Albuterol/Ipratropium (Duoneb (Albuterol 2.5 Mg/Ipratropium 0.5 Mg)) 1 neb INH Q6H PRN PRN Reason: SHORTNESS OF BREATH Last Admin: 11/23/16 09:26 Dose: 1 neb Atorvastatin Calcium (Lipitor*) 20 mg PO [facility] Last Admin: 11/24/16 08:48 Dose: 20 mg Cholecalciferol (Vitamin D Tab*) 1,000 units PO DAILY [facility] Last Admin: 11/24/16 08:48 Dose: 1,000 units Finasteride (Proscar Tab*) 5 mg PO DAILY [facility] Last Admin: 11/24/16 08:48 Dose: 5 mg Fluticasone Propionate (Flonase Nasal [place] 50mcg*) 2 spray BOTH NARES DAILY [facility] Last Admin: 11/24/16 08:53 Dose: 2 spray Ceftriaxone Sodium 2 gm/ (Sodium Chloride) 100 mls @ 200 mls/hr IVPB Q12H [facility] Last Admin: 11/23/16 23:38 Dose: 200 mls/hr Acyclovir Sodium 700 mg/ (Sodium Chloride) 114 mls @ 114 mls/hr IVPB Q8H [facility] Last Admin: 11/24/16 04:04 Dose: 114 mls/hr Ondansetron HCl (Zofran Inj*) 4 mg IV Q4H PRN PRN Reason: NAUSEA Last Admin: 11/23/16 23:58 Dose: 4 mg Polymyxin/Trimethoprim Sulfate (Polytrim Ophth*) 1 drop RIGHT EYE Q4H [facility] Last Admin: 11/24/16 08:48 Dose: 1 drop Vital Signs 11/23/16 11/23/16 11/23/16 11:45 12:11 15:29 Temperature 98.4 F 102.5 F 98.4 F Pulse Rate 111 61 104 Respiratory 28 28 Rate Blood Pressure 112/52 121/104 (mmHg) O2 Sat by Pulse 96 93 97 Oximetry 11/23/16 11/23/16 11/23/16 19:07 19:22 22:54 Temperature 97.4 F 97.3 F Pulse Rate 62 Respiratory 20 20 Rate Blood Pressure 94/52 (mmHg) O2 Sat by Pulse 100 Oximetry 11/24/16 11/24/16 11/24/16 00:02 03:28 07:38 Temperature 97.6 F 97.5 F Pulse Rate 60 62 57 Respiratory 20 16 Rate Blood Pressure 97/51 116/52 (mmHg) O2 Sat by Pulse 98 99 100 Oximetry 11/24/16 08:00 Temperature Pulse Rate Respiratory 18 Rate Blood Pressure (mmHg) O2 Sat by Pulse Oximetry Oxygen Devices in Use Now: Nasal Cannula Appearance: Alert, sitting on the edge of hi sbed. Cooperative. Looks comfortable. Eyes: No Scleral Icterus Neck: NL Appearance and Movements; NL JVP, No Thyroid Enlargement, Masses Respiratory: Symmetrical Chest Expansion and Respiratory Effort, Clear to Auscultation, Clear to Percussion Cardiovascular: NL Sounds; No Murmurs; No JVD, RRR, No Edema, - Extremities: No Edema, No Clubbing, Cyanosis, - Skin: No Rash or Ulcers, No Nodules or Sclerosis, - Neurological: NL Sensation - Speech Result Diagrams: 11/23/16 05:23 11/20/16 05:20 Additional Lab and Data: Lab Results 11/16/16 11/16/16 11/16/16 Range/Units 12:18 12:18 12:18 WBC 6.1 (3.5-10.8) 10^3/ul RBC 5.48 H (4.0-5.4) 10^6/ul Hgb 17.1 (14.0-18.0) g/dl Hct 50 (42-52) % MCV 92 (80-94) fL MCH 31 (27-31) pg MCHC 34 (31-36) g/dl RDW 14 (10.5-15) % Plt Count 107 L (150-450) 10^3/ul MPV 8 (7.4-10.4) um3 Neut % (Auto) 85.4 H (38-83) % Lymph % (Auto) 6.7 L (25-47) % [place] % (Auto) 6.5 (1-9) % Eos % (Auto) 0 (0-6) % Baso % (Auto) 1.4 (0-2) % Absolute Neuts (auto) 5.3 (1.5-7.7) 10^3/ul Absolute Lymphs (auto) 0.4 L (1.0-4.8) 10^3/ul Absolute Monos (auto) 0.4 (0-0.8) 10^3/ul Absolute Eos (auto) 0 (0-0.6) 10^3/ul Absolute Basos (auto) 0.1 (0-0.2) 10^3/ul Absolute Nucleated RBC 0 10^3/ul Nucleated RBC % 0 Sodium 134 (133-145) mmol/L Potassium 4.2 (3.5-5.0) mmol/L Chloride 100 L (101-111) mmol/L Carbon Dioxide 27 (22-32) mmol/L Anion Gap 7 (2-11) mmol/L BUN 20 (6-24) mg/dL Creatinine 1.50 H (0.67-1.17) mg/dL Est GFR ( Amer) 57.6 (>60) Est GFR (Non-Af Amer) 44.8 (>60) BUN/Creatinine Ratio 13.3 (8-20) Glucose 109 H (70-100) mg/dL Lactic Acid 1.3 (0.5-2.0) mmol/L Calcium 9.7 (8.6-10.3) mg/dL Magnesium 2.1 (1.9-2.7) mg/dL Total Bilirubin 1.50 H (0.2-1.0) mg/dL AST 23 (13-39) U/L ALT 15 (7-52) U/L Alkaline Phosphatase 61 (34-104) U/L Troponin I 0.05 H* (<0.04) ng/mL Total Protein 7.2 (6.4-8.9) g/dL Albumin 3.9 (3.2-5.2) g/dL Globulin 3.3 (2-4) g/dL Albumin/Globulin Ratio 1.2 (1-3) TSH 0.48 (0.34-5.60) mcIU/mL Urine Color Urine Appearance Urine pH (5-9) Ur Specific [place] (1.010-1.030) Urine Protein (Negative) Urine Ketones (Negative) Urine Blood (Negative) Urine Nitrate (Negative) Urine Bilirubin (Negative) Urine Urobilinogen (Negative) Ur Leukocyte Esterase (Negative) Urine WBC (Auto) (Absent) Urine RBC (Auto) (Absent) Ur Squamous Epith Cells (Absent) Urine Bacteria (Absent) Hyaline Casts (Absent) Urine Yeast (Absent) Urine Glucose (Negative) 11/16/16 11/16/16 Range/Units 15:35 18:33 WBC (3.5-10.8) 10^3/ul RBC (4.0-5.4) 10^6/ul Hgb (14.0-18.0) g/dl Hct (42-52) % MCV (80-94) fL MCH (27-31) pg MCHC (31-36) g/dl RDW (10.5-15) % Plt Count (150-450) 10^3/ul MPV (7.4-10.4) um3 Neut % (Auto) (38-83) % Lymph % (Auto) (25-47) % [place] % (Auto) (1-9) % Eos % (Auto) (0-6) % Baso % (Auto) (0-2) % Absolute Neuts (auto) (1.5-7.7) 10^3/ul Absolute Lymphs (auto) (1.0-4.8) 10^3/ul Absolute Monos (auto) (0-0.8) 10^3/ul Absolute Eos (auto) (0-0.6) 10^3/ul Absolute Basos (auto) (0-0.2) 10^3/ul Absolute Nucleated RBC 10^3/ul Nucleated RBC % Sodium (133-145) mmol/L Potassium (3.5-5.0) mmol/L Chloride (101-111) mmol/L Carbon Dioxide (22-32) mmol/L Anion Gap (2-11) mmol/L BUN (6-24) mg/dL Creatinine (0.67-1.17) mg/dL Est GFR ( Amer) (>60) Est GFR (Non-Af Amer) (>60) BUN/Creatinine Ratio (8-20) Glucose (70-100) mg/dL Lactic Acid (0.5-2.0) mmol/L Calcium (8.6-10.3) mg/dL Magnesium (1.9-2.7) mg/dL Total Bilirubin (0.2-1.0) mg/dL AST (13-39) U/L ALT (7-52) U/L Alkaline Phosphatase (34-104) U/L Troponin I 0.07 H* (<0.04) ng/mL Total Protein (6.4-8.9) g/dL Albumin (3.2-5.2) g/dL Globulin (2-4) g/dL Albumin/Globulin Ratio (1-3) TSH (0.34-5.60) mcIU/mL Urine Color Alisha Urine Appearance Cloudy Urine pH 6.0 (5-9) Ur Specific [place] 1.019 (1.010-1.030) Urine Protein 2+(100 mg/dl) H (Negative) Urine Ketones Trace H (Negative) Urine Blood 3+ H (Negative) Urine Nitrate Negative (Negative) Urine Bilirubin Negative (Negative) Urine Urobilinogen Negative (Negative) Ur Leukocyte Esterase Negative (Negative) Urine WBC (Auto) 1+(6-10/hpf) H (Absent) Urine RBC (Auto) 3+(>10/hpf) H (Absent) Ur Squamous Epith Cells Present H (Absent) Urine Bacteria Absent (Absent) Hyaline Casts Present H (Absent) Urine Yeast Present H (Absent) Urine Glucose Negative (Negative) Microbiology and Other Data: Microbiology 11/17/16 16:20 Aerobic Blood Culture - Preliminary Blood Venous No Growth Day 1 Anaerobic Blood Culture - Preliminary No Growth Day 1 Assess/Plan/Problems-Billing Assessment: Fever, weakness in an 81 yo M with hx of MCI, HTN, BPH, valvular disease, COPD - Patient Problems (1) Weakness Current Visit: Yes Status: Acute Code(s): R53.1 - WEAKNESS SNOMED Code(s) : 14021332 Comment: And/or gait disorder. MRI negative, CTA negative. Neurogology consultation appreciated. Lyme screen pending. (2) Dementia Current Visit: Yes Status: Acute Code(s): F03.90 - UNSPECIFIED DEMENTIA WITHOUT BEHAVIORAL DISTURBANCE SNOMED Code(s): 38909091 Comment: Very poor historian and couldn't name the present month. At least early dementia. (3) COPD (chronic obstructive pulmonary disease) Current Visit: Yes Status: Acute Code(s): J44.9 - CHRONIC OBSTRUCTIVE PULMONARY DISEASE, UNSPECIFIED SNOMED Code(s): 62941152 Comment: O2 requirement higher, on 8 L/min O2 on 11/23. CTA has motion artifact, no PE seen. (4) CAD (coronary artery disease) Current Visit: Yes Status: Acute Code(s): I25.10 - ATHSCL HEART DISEASE OF [place] CORONARY ARTERY W/O ANG PCTRS SNOMED Code(s): 22312312 Comment: Cardiac cath 2006: Mod disease LAD. Occ bursts tachycardia, would like to get 12-lead ECG during a tachycardic spell. (5) Thrombocytopenia Current Visit: Yes Status: Acute Code(s): D69.6 - THROMBOCYTOPENIA, UNSPECIFIED SNOMED Code(s): 417499221 Comment: Also leukopenia. Appreciate Oncology consult. Abd US showed splenomegaly. BMBx report pending. Possible ITP, consider steroids if platelts drop further. No evidence of BM neoplasia or dysplasi on flow cytometry or bone marrow bx. Lab may be able to get accurate platelet count by adding amikacin to tube. (6) Fever Current Visit: Yes Status: Acute Code(s): R50.9 - FEVER, UNSPECIFIED SNOMED Code(s): 484921332 Comment: Did not respond to pip/williams short course. CXR showed pneumonia. COntinue ceftriaxone and acyclovir to cover Lyme and H. simplex. Discussed with Dr. Adams. (7) Pneumonia Current Visit: Yes Status: Acute Code(s): J18.9 - PNEUMONIA, UNSPECIFIED ORGANISM SNOMED Code(s): 166220733 Comment: R basilar infiltrate on CXR 11/21/16. Pip/williams started 11/22 4 AM, changed to ceftriaxone 11/23.
[2016-11-24 22:20] LABS: Hematocrit 37 % (42-52); Hemoglobin 12.4 g/dl (14.0-18.0); Mean Corpuscular HGB Conc 34 g/dl (31-36); Mean Corpuscular Hemoglobin 31 pg (27-31); Mean Corpuscular Volume 93 fL (80-94); Mean Platelet Volume 9 um3 (7.4-10.4); Red Blood Count 3.99 10^6/ul (4.0-5.4); Red Cell Distribution Width 15 % (10.5-15); White Blood Count 4.2 10^3/ul (3.5-10.8)
[2016-11-24 22:25] LABS: BUN/Creatinine Ratio 38.1 (8-20); Calcium 8.6 mg/dL (8.6-10.3); EGFR African American 70.5 (>60); EGFR Non-African American 54.8 (>60); Magnesium 2.6 mg/dL (1.9-2.7); Potassium 4.1 mmol/L (3.5-5.0)
[2016-11-24 22:57] LABS: Comments Flag Yes
[2016-11-24 23:01] LABS: Add Diff/Slide Review? Slide Review Added
[2016-11-25] MEDS: Polymyx/Trimethoprim OPTH* 10 ML BTL RIGHT EYE SCH ×6 (00:11→20:05)
[2016-11-25 00:54] LABS: B. miyamotoi PCR, B Negative (Negative); Babesia divergens/MO-1 Negative (Negative); Babesia ducani Negative (Negative); Ehrlichia ewingii/canis Negative (Negative)
--- NOTE | 2016-11-25 03:29 | CONS ---
CONSULTATION REPORT: DATE OF CONSULT/DICTATION: 11/24/16 HISTORY OF PRESENT ILLNESS: Mr. Hernandez is an 81-year-old gentleman who was admitted with overall weakness as well as right facial weakness in the setting of hypertension, COPD. During his visit, he had progressive decrease in white count and platelets. No infiltrate on chest x-ray. Temperature to 102.8 with negative blood and urine cultures to date. No stroke was noted on MRI. Yesterday, he was started on ceftriaxone and acyclovir. Lyme serology has come back positive and we await Western blot. He also has laboratory test for coinfection with Lyme that might result in decline in white count and platelets. Dr. Aranda's input has been appreciated. He indicates that there is no evidence of myelodysplastic syndrome, leukemia, lymphoma, or infiltrative process on the bone marrow. Attempts are being made to repeat his platelet count and question is raised on whether he can be placed on steroids if need be. EXAMINATION: On today's visit, Mr. Hernandez's blood pressure was 123/55, his pulse was 67 and regular, respiratory rate was 24, saturation was 97% and temperature was 96.8 degrees Fahrenheit. He was wearing oxygen. He was awake and opened his eyes when I came in the door to [facility]. This is an improvement from yesterday. He had a regular cardiac rhythm. Air entry was heard, although decreased at the bases bilaterally in his lungs. There was no carotid bruit. Some words and responses could be understood. There was perseveration. Other times, he mumbled. He did participate in commands and had full extraocular movements, full miranda to confrontation. Facial expression was asymmetric with weakness on the right hand side, albeit hard to tell if there was weakness in his forehead and around his eye compared to the contralateral side. There was ability to lift all his limbs symmetrically. It was harder to wiggle the toes on the right side compared to the left. Further sensory coordination, gait, strength exam could not be performed. DATA: New data includes Lyme serology was noted to be positive with Western blot pending. His white count has slightly improved to 3.0 today with hemoglobin and hematocrit at 13.1 and 38, platelets unfortunately were noted to be clumped. MEDICATIONS: Medication list was reviewed and does include: 1. Ceftriaxone 2 g q.12 hours. 2. Acyclovir 7 mg q.8 hours IV. IMPRESSION: An 81-year-old gentleman with progressive cognitive decline with right facial weakness progressing to bone marrow suppression with decreased white count, platelets, infiltrate noted on chest x-ray, elevated temperature raising high suspicion of component of infection contributing to clinical picture. In particular with the cranial neuropathy, an LP would be indicated for evaluation; however, given his platelet count, this has not been able to be performed. He is on ceftriaxone and acyclovir. At this point, the end point of acyclovir treatment is not clear, given there is no LP. We discussed with Dr. Kirkpatrick getting an EEG on today's visit. Lyme serology did come back positive and we will await the Western blot. Certainly, if this is the case, this could explain some of the clinical picture and ceftriaxone would be appropriate treatment. Case was discussed with ID, and question of coinfection with Lyme was raised given the changes in white count and platelets. A panel looking at co-infections is pending. Overall, there is definitely an improvement since yesterday. Dr. Yates will be taking of his service tomorrow and I will ask him to follow with you. [id number]/[facility] #: [id number] MTDD
[2016-11-25] MEDS: Cholecalciferol TAB* 1000 UNITS PO SCH (09:21)
[2016-11-25] MEDS: Atorvastatin* 20 MG TAB PO SCH (09:21)
[2016-11-25] MEDS: Finasteride TAB* 5 MG PO SCH (09:21)
[2016-11-25] MEDS: DOXYcycline IV* 100 MG in NS 0.9% 250 ML* 250 ML IVPB SCH ×2 (09:22→20:05)
[2016-11-25] MEDS: Fluticasone NASAL SPRAY 50MCG* 16 gm SPRAY BTL BOTH NARES SCH (09:22)
--- NOTE | 2016-11-25 10:43 | PN ---
Subjective Date of Service: 11/25/16 Interval History: darshan feels "OK" asking why his hands are shaking.Denies pain Family History: Unchanged from Admission Social History: Unchanged from Admission Past Medical History: Unchanged from Admission Objective Active Medications: Acetaminophen (Tylenol Tab*) 650 mg PO Q6H PRN PRN Reason: FEVER/PAIN Last Admin: 11/24/16 06:53 Dose: 650 mg Acetaminophen (Tylenol Supp*) 650 mg TN Q6H PRN PRN Reason: TEMP EQUAL OR GREATER 101 F Last Admin: 11/23/16 12:27 Dose: 650 mg Albuterol/Ipratropium (Duoneb (Albuterol 2.5 Mg/Ipratropium 0.5 Mg)) 1 neb INH Q6H PRN PRN Reason: SHORTNESS OF BREATH Last Admin: 11/23/16 09:26 Dose: 1 neb Atorvastatin Calcium (Lipitor*) 20 mg PO DAILY [facility] Last Admin: 11/25/16 09:21 Dose: 20 mg Cholecalciferol (Vitamin D Tab*) 1,000 units PO DAILY [facility] Last Admin: 11/25/16 09:21 Dose: 1,000 units Finasteride (Proscar Tab*) 5 mg PO DAILY [facility] Last Admin: 11/25/16 09:21 Dose: 5 mg Fluticasone Propionate (Flonase Nasal [place] 50mcg*) 2 spray BOTH NARES DAILY [facility] Last Admin: 11/25/16 09:22 Dose: 2 spray Ceftriaxone Sodium 2 gm/ (Sodium Chloride) 100 mls @ 200 mls/hr IVPB Q12H [facility] Last Admin: 11/25/16 00:11 Dose: 200 mls/hr Acyclovir Sodium 700 mg/ (Sodium Chloride) 114 mls @ 114 mls/hr IVPB Q8H [facility] Last Admin: 11/25/16 04:35 Dose: 114 mls/hr Doxycycline Hyclate 100 mg/ (Sodium Chloride) 250 mls @ 250 mls/hr IVPB Q12H [facility] Last Admin: 11/25/16 09:22 Dose: 250 mls/hr Ondansetron HCl (Zofran Inj*) 4 mg IV Q4H PRN PRN Reason: NAUSEA Last Admin: 11/23/16 23:58 Dose: 4 mg Polymyxin/Trimethoprim Sulfate (Polytrim Ophth*) 1 drop RIGHT EYE Q4H [facility] Last Admin: 11/25/16 09:22 Dose: 1 drop Vital Signs 11/24/16 11/24/16 11/24/16 15:26 19:50 20:14 Temperature 96.8 F 98.5 F Pulse Rate 67 59 Respiratory 24 27 28 Rate Blood Pressure 123/55 108/44 (mmHg) O2 Sat by Pulse 97 95 Oximetry 11/24/16 11/25/16 11/25/16 23:40 04:26 04:30 Temperature 98.2 F 97.4 F Pulse Rate 66 71 86 Respiratory 17 16 Rate Blood Pressure 113/55 (mmHg) O2 Sat by Pulse 95 89 92 Oximetry 11/25/16 07:42 Temperature Pulse Rate 72 Respiratory 14 Rate Blood Pressure 137/63 (mmHg) O2 Sat by Pulse 95 Oximetry Oxygen Devices in Use Now: Nasal Cannula - at 4 l Appearance: 81 yo M in [place], AAOx2, disoriented to date, poor historian Eyes: No Scleral Icterus, PERRLA Ears/Nose/Mouth/Throat: NL Teeth, Lips, Gums, Mucous Membranes Moist Neck: NL Appearance and Movements; NL JVP, Trachea Midline Respiratory: Symmetrical Chest Expansion and Respiratory Effort, - - faint bibasiliar crackles Cardiovascular: NL Sounds; No Murmurs; No JVD, RRR Abdominal: NL Sounds; No Tenderness; No Distention, No Hepatosplenomegaly Lymphatic: No Cervical Adenopathy Extremities: No Edema, No Clubbing, Cyanosis Skin: No Rash or Ulcers, No Nodules or Sclerosis Neurological: - - b/l LE's strength at 4/5, toes downgoing Result Diagrams: 11/24/16 21:54 11/24/16 21:54 Additional Lab and Data: Lab Results 11/16/16 11/16/16 11/16/16 Range/Units 12:18 12:18 12:18 WBC 6.1 (3.5-10.8) 10^3/ul RBC 5.48 H (4.0-5.4) 10^6/ul Hgb 17.1 (14.0-18.0) g/dl Hct 50 (42-52) % MCV 92 (80-94) fL MCH 31 (27-31) pg MCHC 34 (31-36) g/dl RDW 14 (10.5-15) % Plt Count 107 L (150-450) 10^3/ul MPV 8 (7.4-10.4) um3 Neut % (Auto) 85.4 H (38-83) % Lymph % (Auto) 6.7 L (25-47) % [place] % (Auto) 6.5 (1-9) % Eos % (Auto) 0 (0-6) % Baso % (Auto) 1.4 (0-2) % Absolute Neuts (auto) 5.3 (1.5-7.7) 10^3/ul Absolute Lymphs (auto) 0.4 L (1.0-4.8) 10^3/ul Absolute Monos (auto) 0.4 (0-0.8) 10^3/ul Absolute Eos (auto) 0 (0-0.6) 10^3/ul Absolute Basos (auto) 0.1 (0-0.2) 10^3/ul Absolute Nucleated RBC 0 10^3/ul Nucleated RBC % 0 Sodium 134 (133-145) mmol/L Potassium 4.2 (3.5-5.0) mmol/L Chloride 100 L (101-111) mmol/L Carbon Dioxide 27 (22-32) mmol/L Anion Gap 7 (2-11) mmol/L BUN 20 (6-24) mg/dL Creatinine 1.50 H (0.67-1.17) mg/dL Est GFR ( Amer) 57.6 (>60) Est GFR (Non-Af Amer) 44.8 (>60) BUN/Creatinine Ratio 13.3 (8-20) Glucose 109 H (70-100) mg/dL Lactic Acid 1.3 (0.5-2.0) mmol/L Calcium 9.7 (8.6-10.3) mg/dL Magnesium 2.1 (1.9-2.7) mg/dL Total Bilirubin 1.50 H (0.2-1.0) mg/dL AST 23 (13-39) U/L ALT 15 (7-52) U/L Alkaline Phosphatase 61 (34-104) U/L Troponin I 0.05 H* (<0.04) ng/mL Total Protein 7.2 (6.4-8.9) g/dL Albumin 3.9 (3.2-5.2) g/dL Globulin 3.3 (2-4) g/dL Albumin/Globulin Ratio 1.2 (1-3) TSH 0.48 (0.34-5.60) mcIU/mL Urine Color Urine Appearance Urine pH (5-9) Ur Specific [place] (1.010-1.030) Urine Protein (Negative) Urine Ketones (Negative) Urine Blood (Negative) Urine Nitrate (Negative) Urine Bilirubin (Negative) Urine Urobilinogen (Negative) Ur Leukocyte Esterase (Negative) Urine WBC (Auto) (Absent) Urine RBC (Auto) (Absent) Ur Squamous Epith Cells (Absent) Urine Bacteria (Absent) Hyaline Casts (Absent) Urine Yeast (Absent) Urine Glucose (Negative) 11/16/16 11/16/16 Range/Units 15:35 18:33 WBC (3.5-10.8) 10^3/ul RBC (4.0-5.4) 10^6/ul Hgb (14.0-18.0) g/dl Hct (42-52) % MCV (80-94) fL MCH (27-31) pg MCHC (31-36) g/dl RDW (10.5-15) % Plt Count (150-450) 10^3/ul MPV (7.4-10.4) um3 Neut % (Auto) (38-83) % Lymph % (Auto) (25-47) % [place] % (Auto) (1-9) % Eos % (Auto) (0-6) % Baso % (Auto) (0-2) % Absolute Neuts (auto) (1.5-7.7) 10^3/ul Absolute Lymphs (auto) (1.0-4.8) 10^3/ul Absolute Monos (auto) (0-0.8) 10^3/ul Absolute Eos (auto) (0-0.6) 10^3/ul Absolute Basos (auto) (0-0.2) 10^3/ul Absolute Nucleated RBC 10^3/ul Nucleated RBC % Sodium (133-145) mmol/L Potassium (3.5-5.0) mmol/L Chloride (101-111) mmol/L Carbon Dioxide (22-32) mmol/L Anion Gap (2-11) mmol/L BUN (6-24) mg/dL Creatinine (0.67-1.17) mg/dL Est GFR ( Amer) (>60) Est GFR (Non-Af Amer) (>60) BUN/Creatinine Ratio (8-20) Glucose (70-100) mg/dL Lactic Acid (0.5-2.0) mmol/L Calcium (8.6-10.3) mg/dL Magnesium (1.9-2.7) mg/dL Total Bilirubin (0.2-1.0) mg/dL AST (13-39) U/L ALT (7-52) U/L Alkaline Phosphatase (34-104) U/L Troponin I 0.07 H* (<0.04) ng/mL Total Protein (6.4-8.9) g/dL Albumin (3.2-5.2) g/dL Globulin (2-4) g/dL Albumin/Globulin Ratio (1-3) TSH (0.34-5.60) mcIU/mL Urine Color Alisha Urine Appearance Cloudy Urine pH 6.0 (5-9) Ur Specific [place] 1.019 (1.010-1.030) Urine Protein 2+(100 mg/dl) H (Negative) Urine Ketones Trace H (Negative) Urine Blood 3+ H (Negative) Urine Nitrate Negative (Negative) Urine Bilirubin Negative (Negative) Urine Urobilinogen Negative (Negative) Ur Leukocyte Esterase Negative (Negative) Urine WBC (Auto) 1+(6-10/hpf) H (Absent) Urine RBC (Auto) 3+(>10/hpf) H (Absent) Ur Squamous Epith Cells Present H (Absent) Urine Bacteria Absent (Absent) Hyaline Casts Present H (Absent) Urine Yeast Present H (Absent) Urine Glucose Negative (Negative) Microbiology and Other Data: Microbiology 11/17/16 16:20 Aerobic Blood Culture - Preliminary Blood Venous No Growth Day 1 Anaerobic Blood Culture - Preliminary No Growth Day 1 Assess/Plan/Problems-Billing Assessment: Fever, weakness in an 81 yo M with hx of MCI, HTN, BPH, valvular disease, COPD - Patient Problems (1) Cognitive impairment Comment: As per SW note, APS case consultant states patient is AOx3 at baseline. Likely has some cognitive impairment that is long standing. c/w neurology's notes from yesterday pt appears to be improving in his mental status.still with generalized weakness and deconditioning. Encephalopathy likelky related to acute Anaplasma infection. ID consult pending. doxy started on 11/25/16 (2) Elevated troponin Comment: Peaked at 0.07. Likely from demand/CKD. Echo fairly unremarkable, no further work-up at this point. (3) CKD (chronic kidney disease) stage 3, GFR 30-59 ml/min Comment: creat close tpo baseline (4) COPD (chronic obstructive pulmonary disease) Comment: O2 requirement higher, on 4 L/min O2 on 11/23. CTA has motion artifact , no PE seen. will cont incentive spirometry (5) Pneumonia Comment: R basilar infiltrate on CXR 11/21/16. Pip/williams started 11/22 4 AM, changed to ceftriaxone 11/23. (6) CAD (coronary artery disease) Comment: Cardiac cath 2006: Mod disease LAD. Occ bursts tachycardia, would like to get 12-lead ECG during a tachycardic spell. (7) DVT prophylaxis Comment: SCDs, no anticoagulation due to severe thombocytopenia (8) Thrombocytopenia Comment: Also leukopenia. Appreciate Oncology consult. Abd US showed splenomegaly. BMBx report unremarkable. Veraley anaplasma related. appreciate ID consult (9) Weakness Comment: And/or gait disorder. MRI negative, CTA negative. Neurogology consultation appreciated. Lyme screen positive. cont PT/OT Status and Disposition: inpatient
--- NOTE | 2016-11-25 18:56 | CONS ---
CONSULTATION REPORT: DATE OF CONSULT: 11/25/16 REQUESTING PHYSICIAN: Dr. Uriarte. CONSULTING SERVICE: Infectious Disease. REASON FOR CONSULTATION: Encephalopathy and positive anaplasma PCR. IMPRESSION: 1. Encephalopathy was present on admission along with suspected stroke, symptoms of which apparently resolved. 2. Leukopenia, thrombocytopenia, transaminitis, all mild and with fever, anaplasma PCR is positive, Lyme SHERIN is positive, Western blot pending. 3. Chronic obstructive pulmonary disease. 4. Coronary artery disease. RECOMMENDATIONS: Doxycycline 100 mg IV every 12 hours as you are doing, anaplasma also can be quite severe particularly in the elderly and debilitated, and I think it may explain most of his symptoms. His Lyme serology is pending, possibly had a coinfection or that the SHERIN could be a false positive. In any event, the doxycycline will cover both. HISTORY OF PRESENT ILLNESS: This is an 81-year-old man with coronary artery disease and COPD, admitted with change in mental status and fatigue. He cannot provide much of the history given his symptoms which is obtained instead from review of the medical record and discussion with Dr. Uriarte. I did discuss the case with Dr. Kirkpatrick a couple of days ago and given his symptoms, recommended a PCR testing. The anaplasma PCR came back positive, Ehrlichia and Babesia negative. He had had a Lyme antibody sent, SHERIN positive, Western blot pending. Blood cultures are negative, both from 11/17/16 and 11/21/16, as is the urine culture. Urinalysis showed trace ketones, there was blood and white cells. He has been on ceftriaxone. He had a fever on 11/21/16 to 38.7 and a fever of 39.2 yesterday. He has apparently had occasional sweats but the nurses do not report he is complaining of any focal pain. He has had a CT of the brain and MRI of the brain, showed cortical atrophy and microvascular ischemic changes. No acute findings. He had a CT of the chest on 11/23/16 that showed no pulmonary embolism. There is a right basilar consolidation and bilateral pleural effusions. There is no prosthetic material present. PAST MEDICAL HISTORY: COPD, coronary artery disease, dementia. MEDICATIONS: 1. Tylenol. 2. Lipitor. 3. Cholecalciferol. 4. Doxycycline 100 mg IV every 12 hours. 5. Finasteride. 6. Fluticasone nasal spray. 7. Ceftriaxone 2 g every 12 hours. 8. Acyclovir 700 mg IV every 8 hours. ALLERGIES: No known drug allergies. FAMILY HISTORY: Unknown. SOCIAL HISTORY: He lives in [facility], spends some time outdoors. REVIEW OF SYSTEMS: Unobtainable given his mental status. PHYSICAL EXAMINATION: Vital Signs: Temperature is 36, heart rate 70, respiratory rate 16, blood pressure 130/60, O2 sat 95% on 2 L. General: He is awake, diaphoretic, not in distress. Neurologic: Awake, he regards, he answers some yes and no questions, follows commands. He can move all his extremities. HEENT: There is no conjunctival hemorrhage. He does have bilateral conjunctival injection. Oropharynx without lesions. Neck is supple without nuchal rigidity. Lymph Nodes: There is no cervical, supraclavicular, inguinal, axillary, or epitrochlear lymphadenopathy. Heart: Regular rate and rhythm without murmurs, rubs, or gallops. Lungs: Clear to auscultation bilaterally. Abdomen: Soft, nontender, and nondistended. There are bowel sounds present. Skin: There is no rash or splinter hemorrhages. Musculoskeletal: There is no spine tenderness to palpation or joint synovitis. LABORATORY DATA: White blood cell count 4, hemoglobin 12, platelets 20,000, though there is clumping as well. Creatinine 1.2. AST 66. Troponin 0.07. Procalcitonin 0.6. Please see impressions and recommendations outlined above, which I have discussed with Dr. Uriarte. Thank you for asking to see Mr. Hernandez in consultation. [id number]/[facility] #: [id number] [facility] HOSPITALRicardo
[2016-11-25 22:58] LABS: Lyme Disease IgG Ab WB Positive (Negative)
[2016-11-26] MEDS: Polymyx/Trimethoprim OPTH* 10 ML BTL RIGHT EYE SCH ×4 (00:34→13:01)
[2016-11-26] MEDS: Fluticasone NASAL SPRAY 50MCG* 16 gm SPRAY BTL BOTH NARES SCH (07:29)
[2016-11-26] MEDS: DOXYcycline IV* 100 MG in NS 0.9% 250 ML* 250 ML IVPB SCH (07:30)
[2016-11-26] MEDS: Finasteride TAB* 5 MG PO SCH (07:30)
[2016-11-26] MEDS: Atorvastatin* 20 MG TAB PO SCH (07:30)
[2016-11-26] MEDS: Cholecalciferol TAB* 1000 UNITS PO SCH (07:30)
[2016-11-26 07:36] VITALS: BP 130/67
--- NOTE | 2016-11-26 10:03 | EEG ---
ELECTROENCEPHALOGRAPHY: DATE OF STUDY: 11/25/16 - ROOM #404 DATE OF DICTATION: 11/25/16 PATIENT OF: Dr. Adams. HISTORY: This is an 81-year-old man being evaluated for progressive encephalopathy with some possible right facial weakness as well as decreased white count and platelets. MEDICATIONS: Include: 1. Zofran. 2. Finasteride. 3. Ceftriaxone. 4. Acyclovir. 5. Atorvastatin. INTERPRETATION: With the patient awake, background cerebral activity reaches 8 Hz rhythm, but there is admixed slowing into the theta range. With the patient asleep, background consisted of diffuse related delta and theta activity. No epileptiform potentials, focal abnormalities, or major asymmetries of background are noted. IMPRESSION: This awake and asleep EEG is abnormal because of slowing of background consistent with his encephalopathy, but nonspecific as to etiology. No epileptiform potentials were present. [id number]/[facility] #: [id number] MTDD
--- NOTE | 2016-11-26 15:00 | DS ---
CC: [facility]; Dr. Landa; Dr. Adams; Dr. Corona; Dr. Crisostomo; Dr. Aranda * DISCHARGE SUMMARY: DATE OF ADMISSION: 11/16/16 DATE OF DISCHARGE: 11/25/16 PRIMARY CARE PROVIDER: Dr. Landa. DISCHARGE DIAGNOSES: 1. 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 2. 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 3. Deconditioning and generalized weakness due to above mentioned. 4. Community-acquired pneumonia. 5. Elevated troponin of 0.07, most likely due to demand ischemia in a patient with ongoing anaplasmosis. SECONDARY DIAGNOSES: 1. History of chronic obstructive pulmonary disease. 2. History of hypertension. 3. History of valvular heart disease. 4. History of cognitive impairment, further unspecified. 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 LABORATORY DATA AND STUDIES PERFORMED DURING THE HOSPITAL STAY: Included: On , white blood cell count of 4.2, hemoglobin of 12.4, hematocrit of 37, and platelets of 20,000. Previously reported platelets were clumped and noted to be thrombocytopenic also. The patient's white blood cell at its lower level was 2.9 on 11/21/16. Serology studies were positive for anaplasma PCR. They were negative for all of the other tick-borne disease apart from Lyme disease serology which was also positive and positive IgG, but uninterpretable IgM. Urinalysis showed +3 blood, +3 rbc's, and absent bacteria. On 11/24/16, sodium of 134, potassium of 4.1, chloride of 101, carbon dioxide 31 , BUN 48, creatinine 1.26 which is the patient's baseline. The patient's troponin was at its maximum at 0.07. LDH was noted to be 324 on 11/19/16. AST of 66, ALT 49, alkaline phosphatase of 77 on the same day. CT angiogram of the chest obtained on 11/23/16, impression: "Limited study. Within the limitations of the study, there is no pulmonary arterial filling defect to suggest pulmonary embolism. Right basilar consolidation with small bilateral pleural effusions." Head CT obtained on 11/19/16, impression: "Negative for central intracranial arterial large vessel occlusion and stenosis." CT angiogram, impression: "Approximately 50% short segment ostial stenosis of the origin of the right carotid artery from the brachiocephalic artery. Negative for right or left internal carotid artery stenosis." Brain MRI noted on 11/17/16, impression: "Cortical atrophy with chronic microvascular ischemic changes. No acute findings." Abdominal ultrasound, impression: "Splenomegaly." The patient also had an EEG obtained on 11/25/16, impression: "This awake and sleep EEG is abnormal because of slowing of background consistent with his encephalopathy, but nonspecific as to etiology. No epileptiform potentials are present." Transthoracic echocardiogram obtained on 11/24/16, impression: "Suboptimal views for analysis due to axis angles and lung tissue interference. The below comments are made within limitations due to the poor images. Mild concentric LVH observed. Global left ventricular wall motion and contractility are within normal limits. Estimated EF of 60% to 65%. There is an E-to-A reversal of the mitral valve flow pattern suggestive of diastolic dysfunction. There is trace to mild aortic regurgitation. The other valve structure is not well visualized. Doppler analysis suggests the presence of moderate aortic stenosis. There was trace to mild tricuspid regurgitation. There is mild pulmonary regurgitation." CONSULTATIONS DURING THE HOSPITAL STAY: Included Dr. Crisostomo and Dr. Aranda from Oncology, and Dr. Adams from Neurology. PROCEDURES DURING THE HOSPITAL STAY: Included bone marrow biopsy obtained by Dr. Aranda on 11/20/16 with pathology showing "normocellular bone marrow 15% with mildly increased plaque 5.5%. 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 He was also noted to be pancytopenic. Multiple times, the platelets were difficult to be estimated due to clumping. The patient was seen by Dr. Adams in neurology consultation, who recommended treatment for possibility of encephalitis with acyclovir and ceftriaxone. A lumbar puncture was also recommended, but contraindicated with the patient's thrombocytopenia down to 20,000. The patient's EEG was obtained and it was unremarkable. An MRI to rule out stroke also did not show any acute changes. Subsequent CT angiogram of the head and neck also was grossly unremarkable as mentioned above. Due to the elevated D-dimer, a CT angiogram of the chest was obtained and showed a possibility of pneumonia. At that point, the patient's antibiotic coverage was extended to azithromycin. Dr. Crisostomo saw the patient in consultation due to thrombocytopenia and basically pancytopenia. At this point, Dr. Crisostomo recommended abdominal ultrasound to evaluate for splenomegaly which was positive. Dr. Aranda performed a bone marrow biopsy with results as above mentioned, grossly unremarkable. In the process of the patient's evaluation, the consultants also talked with Mr. Corona from Infectious Disease who recommended screening for anaplasma and tick-borne diseases. Interestingly enough, the patient's anaplasma PCR was positive, which will explain the patient's pancytopenia and encephalopathy. At this point, the most likely etiology of the patient's entire presentation was anaplasmosis. The patient was started on doxycycline and remaining antibiotics were discontinued. Doxycycline also should have a good coverage for pneumonia. By the time of discharge, his mental status is clearing. Once again at baseline, he is in need of social sciences department chair and nurse outreach case manager at home. Nevertheless, he has generalized weakness and he requires assistance to get out of bed. At this point, he was deemed to be a good candidate for rehabilitation facility and he is going to be discharged to [facility] for further rehabilitation. He is to be continued with doxycycline at 100 mg b.i.d. for a total of 10 days. MEDICATIONS AT DISCHARGE: Include: 1. Albuterol nebulizer every 6 hours p.r.n. 2. Albuterol inhaler 1 inhalation every 4 hours p.r.n. 3. Aspirin 81 mg daily. 4. Lipitor 20 mg daily. 5. Vitamin D3 1000 units daily. 6. Doxycycline 100 mg p.o. b.i.d. for 10 days total. 7. Proscar 5 mg daily. 8. Fluticasone nasal spray 2 sprays both nares daily. 9. Atrovent inhaler 2 puffs inhalation every 6 hours p.r.n. PHYSICAL EXAMINATION: At the time of discharge, blood pressure of 130/67, heart rate of 58 and regular, respiratory rate 20, oxygen saturation 99% on 4 L oxygen nasal cannula, and temperature of 97.3. General: The patient is a very pleasant 81-year-old male who is in no acute distress. The patient is aware of his location and self, aware of year, but not the exact date. He is a rather poor historian, occasionally slurring his voice. HEENT: Head: Atraumatic and normocephalic. Eyes: Pupils equal and reactive to light and accommodation. Oropharynx clear. Mucosa moist. Neck: Supple. No JVD, no bruits bilaterally. Cardiovascular: Regular rate and rhythm with 2/6 systolic ejection murmur noted on auscultation of the right upper sternal border, radiating to bilateral carotids. Respiratory: Fine crackles at bilateral bases. Abdomen: Soft and nontender. Bowel sounds present in all 4 quadrants. Extremities: There is no edema. Pulses are +2 bilaterally. No clubbing or cyanosis. Upon evaluation of the skin, scattered ecchymotic areas in bilateral forearms from venipunctures. Neuro Evaluation: Speech generally clear, but occasionally the patient slurs his words. Cranial nerves II through XII are grossly intact. Motor strength is 5/5 bilaterally. The patient has a very unsteady gait, notable for generalized weakness. Please note that this is a short summary of the patient's hospital stay. Please refer to further medical records for details. TIME SPENT: Approximately 45 minutes was spent on the patient's discharge. [id number]/[facility] #: [id number] [facility]
[2016-11-30 15:33] LABS: BM Result Summary Normal
== END 2016-11-26 14:25 | DRG 867 ==
LOC: ED 11:59 → MEDTELE 14:41 → OBSVTOIN 11-17 16:16 → MEDTELE 11-20 01:45 → MED 11-23 22:55
PROVIDERS: ADMIT Hospitalist; ATTEND Internal Medicine
PROC: 07DR3ZX Extraction of Iliac Bone Marrow, Percutaneous Approach, Diagnostic (ICD-10-PCS; principal; 2016-11-17)
PROC: 4A00X4Z Measurement of Central Nervous Electrical Activity, External Approach (ICD-10-PCS; 2016-11-25)
DX: A77.49 Other ehrlichiosis (principal); J18.9 Pneumonia, unspecified organism; G93.40 Encephalopathy, unspecified; J90 Pleural effusion, not elsewhere classified; D61.818 Other pancytopenia; F03.90 Unspecified dementia, unspecified severity, without behavioral disturbance, psychotic disturbance, mood disturbance, and anxiety; I24.8 Other forms of acute ischemic heart disease; J44.9 Chronic obstructive pulmonary disease, unspecified; R53.1 Weakness; I25.10 Atherosclerotic heart disease of native coronary artery without angina pectoris; M19.90 Unspecified osteoarthritis, unspecified site; Z96.1 Presence of intraocular lens; N40.0 Benign prostatic hyperplasia without lower urinary tract symptoms; R74.8 Abnormal levels of other serum enzymes; R16.1 Splenomegaly, not elsewhere classified; R26.81 Unsteadiness on feet; N18.3 Chronic kidney disease, stage 3 (moderate); I12.9 Hypertensive chronic kidney disease with stage 1 through stage 4 chronic kidney disease, or unspecified chronic kidney disease; E78.5 Hyperlipidemia, unspecified; I65.21 Occlusion and stenosis of right carotid artery; I08.2 Rheumatic disorders of both aortic and tricuspid valves; Z82.49 Family history of ischemic heart disease and other diseases of the circulatory system; Z80.3 Family history of malignant neoplasm of breast; Z83.79 Family history of other diseases of the digestive system; Z87.891 Personal history of nicotine dependence; Z98.42 Cataract extraction status, left eye; Z98.41 Cataract extraction status, right eye; Z80.8 Family history of malignant neoplasm of other organs or systems; Z79.82 Long term (current) use of aspirin
CPT/HCPCS: 36415; 38221; 70450; 70496; 70498; 70551; 71010; 71020; 71275; 76700; 80048; 80053; 80074; 80076; 80320; 81003; 81015; 81479; 82550; 83605; 83615; 83735; 83880; 84145; 84443; 84484; 85025; 85049; 85060; 85097; 85362; 85384; 85610; 85730; 86140; 86617; 86618; 86703; 87040; 87086; 87798; 88184; 88187; 88188; 88237; 88271; 88291; 88305; 88311; 88313; 93005; 93306; 94640; 94760; 95819; 96374; 96375; 99223; 99282; A9270-GY; G0378; G0480; G8978-GP-CM; G8979-GP-CK; J0133; J0696; J1650; J2405; J2543; Q9967

== ENCOUNTER 2017-10-29 12:59 | Emergency (ER) | payer MEDICARE, MEDICAID ==
--- NOTE | 2017-10-29 13:52 | ED ---
Lower Extremity - HPI Summary HPI Summary: Pt. is an 82 y.o male who presents to the ER for a new foot drop x 2 days. Pt. states he has some mild chronic low back pain without exacerbation. Patient denies any injuries or falls. Patient states when he stood up from sitting to days ago he noticed that he had weakness to his left foot and decreased sensation. Denies bowel or bladder incontinence or retention, recent illness, numbness, tingling or unilateral weakness. Patient otherwise has no complaints today. Symptoms are moderate in severity. No current modifying factors. - History of Current Complaint Chief Complaint: EDExtremityLower Stated Complaint: WEAKNESS Time Seen by Provider: 10/29/17 13:14 Hx Obtained From: Patient Pain Intensity: 0 - Allergies/Home Medications Allergies/Adverse Reactions: Allergies Allergy/AdvReac Type Severity Reaction Status Date / Time No Known Allergies Allergy Verified 11/15/16 16:44 Home Medications: Home Medications Atorvastatin* [Lipitor*] 20 mg PO DAILY 10/29/17 [History Confirmed 10/29/17] Finasteride [Proscar] 5 mg PO DAILY 10/29/17 [History Confirmed 10/29/17] Fluticasone NASAL SPRAY 50MCG* [Flonase NASAL SPRAY 50MCG*] 2 spray BOTH NARES DAILY 10/29/17 [History Confirmed 10/29/17] Ipratropium HFA INHALER(NF) [Atrovent Hfa Inhaler(NF)] 2 puff INH Q6H 10/29/17 [ History Confirmed 10/29/17] Lisinopril TAB* [Prinivil TAB*] 10 mg PO DAILY 10/29/17 [History Confirmed 10/29] PMH/Surg Hx/FS Hx/Imm Hx Previously Healthy: Yes Endocrine/Hematology History: Denies: Hx Diabetes, Hx Sickle Cell Disease Cardiovascular History: Reports: Hx Hypertension, Hx Valvular Heart Disease, Other Cardiovascular Problems/Disorders - HEART MURMUR, HAD FOR YRS Denies: Hx Pacemaker/ICD Respiratory History: Reports: Hx Asthma - RESCUE INHALER, Hx Chronic Obstructive Pulmonary Disease (COPD) Denies: Other Respiratory Problems/Disorders GI History: Denies: Other GI Disorders History: Reports: Other Problems/Disorders - urinary retention, bladder growths Denies: Hx Renal Disease Musculoskeletal History: Reports: Hx Arthritis Sensory History: Reports: Hx Cataracts - REMOVED Denies: Hx Contacts or Glasses, Hx Hearing Aid Opthamlomology History: Reports: Hx Cataracts - REMOVED Denies: Hx Contacts or Glasses Neurological History: Reports: Other Neuro Impairments/Disorders - OCCASIONAL DIZZINESS, NONE LATELY Psychiatric History: Denies: Hx Panic Disorder - Surgical History Surgery Procedure, Year, and Place: BLADDER RESECTION. 2013 BILATERAL EYES CATARACT EXTRACTION WITH IOL IMPLANTS, [facility]. LEFT INGUINAL HERNIA REPAIR, [facility] Hx Anesthesia Reactions: No - Immunization History Date of Tetanus Vaccine: Unk Date of Influenza Vaccine: Unk Infectious Disease History: No Infectious Disease History: Denies: Traveled Outside the [place] in Last 30 Days - Family History Known Family History: Positive: Other - Father had throat cancer - Social History Occupation: Retired Lives: Alone Alcohol Use: None Substance Use Type: Reports: None Hx Tobacco Use: Yes Smoking Status (MU): Light Every Day Tobacco Smoker Amount Used/How Often: 1 PPD Length of Time of Smoking/Using Tobacco: 60 YEARS Have You Smoked in the Last Year: Yes Review of Systems Constitutional: Negative Negative: burning, dysuria, incontinence Positive: Other - Mild low back pain, left foot weakness. Positive: Weakness - left foot. All Other Systems Reviewed And Are Negative: Yes Physical Exam Triage Information Reviewed: Yes Vital Signs On Initial Exam: Initial Vitals Temp Pulse Resp BP Pulse Ox 98.4 F 55 18 125/68 91 10/29/17 13:02 10/29/17 13:02 10/29/17 13:02 10/29/17 13:02 10/29/17 13:02 Vital Signs Reviewed: Yes Appearance: Positive: Well-Appearing - Patient lying in bed in no acute distress. Pleasant. Skin: Positive: Warm, Dry Head/Face: Positive: Normal Head/Face Inspection Eyes: Positive: Normal Neck: Positive: Supple Abdomen Description: Positive: Nontender Musculoskeletal: Positive: Other - No midline back tenderness on exam. Full strength in bilateral lower extremities with flexion. Patient unable to her Cefizox left foot at all. He also noticed decreased sensation diffusely to the dorsal aspect left foot leg is otherwise neurovascularly intact. Decreased DT reflexes bilaterally. Neurological: Positive: Normal, CN Intact II-III Psychiatric: Positive: Affect/Mood Appropriate Diagnostics - Vital Signs Vital Signs Temp Pulse Resp BP Pulse Ox 10/29/17 13:02 98.4 F 55 18 125/68 91 - Laboratory Result Diagrams: 10/29/17 14:07 10/29/17 14:07 Lab Statement: Any lab studies that have been ordered have been reviewed, and results considered in the medical decision making process. Lower Extremity Course/Dx - Course Course Of Treatment: Patient presenting to the ER for a new left foot drop 2 days. He does complain of some minimal back pain. He is afebrile with stable vital signs. Case discussed with Dr. Vick. Given new findings will obtain MRI lumbar spine. Basic labs ordered. Labs are unremarkable. MRI per radiology: FINDINGS: Unless otherwise specified comparisons below reference the July 20, 2017 CT. examination. The spinal cord terminates at the T12/L1. level. There are no intrinsic abnormalities of the visualized cord. The lower thoracic and lumbar vertebrae are normally aligned. Vertebral body height is. adequately maintained and bony signal is within normal limits. There is a mild degree of normal fluid signal loss from L1 through L5. Axial view images: Less otherwise specified below there is no significant central canal stenosis or neural. foraminal stenosis. L2-L3: There is no significant central canal or neural foraminal stenoses. L3-L4: Mild broad-based disc protrusion eccentric into the left neural foraminal space. combining with facet arthropathy to cause mild right and mild to moderate left neural. foraminal stenosis. L4-L5: Mild broad-based disc protrusion combining with facet arthropathy and right-sided. infolding of the ligamentum flavum to cause a mild -to-moderate degree of right-sided. neural foraminal stenosis and mild left neural foraminal stenosis. L5-S1: There is no significant central canal or neural foraminal stenoses. IMPRESSION: Awtq-ph-[id number] degenerative disc disease most severely effecting L3/L4 and L4/L5. Case was discussed briefly with Dr. Berg, neurology. He reviewed MRI. He recommends outpt. fu. for further evaluation with an EMG. Suspect peripheral cause. Results and plan discusssed with pt. He is able to ambulate without difficulty with his walker. He will call PCP on Wednesday for an apt. To return to ER if sxs change or worsen. - Diagnoses Provider Diagnoses: Foot drop, left Discharge - Sign-Out/Discharge Documenting (check all that apply): Discharge/Admit/Transfer - Discharge Plan Condition: Good Disposition: HOME Patient Education Materials: Foot Drop (ED) Referrals: Chago Landa MD [Primary Care Provider] - Additional Instructions: Call your PCP on Wednesday for an appointment Return to ER if symptoms change or worsen - Billing Disposition and Condition Condition: GOOD Disposition: HOME
[2017-10-29 14:32] LABS: ABS Basophils 0.1 10^3/ul (0-0.2); ABS Eosinophils 0.4 10^3/ul (0-0.6); ABS Lymphocytes 1.2 10^3/ul (1.0-4.8); ABS Monocytes 0.6 10^3/ul (0-0.8); ABS Neutrophils 3.9 10^3/ul (1.5-7.7); ABS Nucleated RBC 0 10^3/ul; Eosinophil % 5.8 % (0-6); Hematocrit 44 % (42-52); Lymphocyte % 20.2 % (25-47); Mean Corpuscular HGB Conc 34 g/dl (31-36); Mean Corpuscular Hemoglobin 32 pg (27-31); Mean Corpuscular Volume 94 fL (80-94); Mean Platelet Volume 7.9 um3 (7.4-10.4); Nucleated Red Blood Cells % 0.1; Platelet Count 159 10^3/ul (150-450); Red Blood Count 4.64 10^6/ul (4.0-5.4); Red Cell Distribution Width 13 % (10.5-15); White Blood Count 6.2 10^3/ul (3.5-10.8)
[2017-10-29 14:45] LABS: EGFR Non-African American 47.2 (>60)
--- NOTE | 2017-10-29 15:56 | RAD ---
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 FINDINGS: Unless otherwise specified comparisons below reference the July 20, 2017 CT examination. The spinal cord terminates at the T12/L1. level. There are no intrinsic abnormalities of the visualized cord. The lower thoracic and lumbar vertebrae are normally aligned. Vertebral body height is adequately maintained and bony signal is within normal limits. There is a mild degree of normal fluid signal loss from L1 through L5. Axial view images: Less otherwise specified below there is no significant central canal stenosis or neural foraminal stenosis. L2-L3: There is no significant central canal or neural foraminal stenoses. L3-L4: Mild broad-based disc protrusion eccentric into the left neural foraminal space combining with facet arthropathy to cause mild right and mild to moderate left neural foraminal stenosis. L4-L5: Mild broad-based disc protrusion combining with facet arthropathy and right-sided infolding of the ligamentum flavum to cause a [id number] degree of right-sided neural foraminal stenosis and mild left neural foraminal stenosis. L5-S1: There is no significant central canal or neural foraminal stenoses. IMPRESSION: Csqp-tl-[id number] degenerative disc disease most severely effecting L3/L4 and L4/L5.
[2017-10-29 16:58] VITALS: BP 141/74
== END 2017-10-29 16:56 | disposition home or self-care (01) ==
LOC: ED 12:59
DX: M21.372 Foot drop, left foot (principal); M51.26 Other intervertebral disc displacement, lumbar region; M51.36 Other intervertebral disc degeneration, lumbar region; I10 Essential (primary) hypertension; J45.909 Unspecified asthma, uncomplicated; F17.200 Nicotine dependence, unspecified, uncomplicated; Z79.899 Other long term (current) drug therapy
CPT/HCPCS: 36415; 72148; 80053; 85025; 86141; 99283

== ENCOUNTER → 2018-05-28 10:33 | Emergency (ER) | payer MEDICARE, MEDICAID ==
[~2018-05-28 10:33] MED LIST changes: +Albuterol/Ipratropium NEB.SOL* Albuterol 2.5 MG/Ipratropium 0.5 MG 3 ML INH ONE; -Famotidine IV* 10 MG/ML 2 ML (20 mg) IV SLOW PU ONE; -Meclizine TAB* 12.5 MG PO ONE; -Ondansetron INJ* 2 MG/ML VIAL IV ONE; +methylPREDNISolone 125 MG* 2 ML VIAL IV ONE
--- NOTE | 2018-05-28 10:47 | ED ---
Shortness of Breath - HPI Summary HPI Summary: An 83 y/o F presents to ED with c/o SOB onset 3-4 days ago. Pert PMHx: asthma. Pt has run out of his asthma treatments due to holidays. His last treatment was 3-4 days ago. Pt received O2 en route by EMS which he says helped his breathing. He is not on home O2. - History of Current Complaint Chief Complaint: EDShortnessOfBreath Time Seen by Provider: 05/28/18 10:45 Hx Obtained From: Patient Onset/Duration: Gradual Onset, Lasting Days, Still Present Timing: Constant Dyspnea At: Rest Alleviating Factors: EMS Tx - O2 - Allergy/Home Medications Allergies/Adverse Reactions: Allergies Allergy/AdvReac Type Severity Reaction Status Date / Time No Known Allergies Allergy Verified 05/28/18 10:42 Home Medications: Home Medications Albuterol inh POWDER (NF) [Proair Respiclick] 1 puff INH SEE INSTRUCTIONS PRN [History Confirmed 05/28/18] PMH/Surg Hx/FS Hx/Imm Hx Previously Healthy: No Endocrine/Hematology History: Denies: Hx Diabetes, Hx Sickle Cell Disease Cardiovascular History: Reports: Hx Hypertension, Hx Valvular Heart Disease, Other Cardiovascular Problems/Disorders - HEART MURMUR, HAD FOR YRS Denies: Hx Pacemaker/ICD Respiratory History: Reports: Hx Asthma - RESCUE INHALER, Hx Chronic Obstructive Pulmonary Disease (COPD) Denies: Other Respiratory Problems/Disorders GI History: Denies: Other GI Disorders History: Reports: Other Problems/Disorders - urinary retention, bladder growths Denies: Hx Renal Disease Musculoskeletal History: Reports: Hx Arthritis Sensory History: Reports: Hx Cataracts - REMOVED Denies: Hx Contacts or Glasses, Hx Hearing Aid Opthamlomology History: Reports: Hx Cataracts - REMOVED Denies: Hx Contacts or Glasses Neurological History: Reports: Other Neuro Impairments/Disorders - OCCASIONAL DIZZINESS, NONE LATELY Psychiatric History: Denies: Hx Panic Disorder - Surgical History Surgery Procedure, Year, and Place: BLADDER RESECTION. 2013 BILATERAL EYES CATARACT EXTRACTION WITH IOL IMPLANTS, [facility]. LEFT INGUINAL HERNIA REPAIR, [facility] Hx Anesthesia Reactions: No - Immunization History Date of Tetanus Vaccine: Unk Date of Influenza Vaccine: Unk Infectious Disease History: No Infectious Disease History: Denies: Traveled Outside the [place] in Last 30 Days - Family History Known Family History: Positive: Other - Father had throat cancer - Social History Occupation: Retired Lives: With Family Alcohol Use: None Hx Substance Use: No Substance Use Type: Reports: None Hx Tobacco Use: Yes Smoking Status (MU): Former Smoker Amount Used/How Often: 1 PPD Length of Time of Smoking/Using Tobacco: 60 YEARS Have You Smoked in the Last Year: Yes Review of Systems Negative: Fever Positive: Shortness Of Breath All Other Systems Reviewed And Are Negative: Yes Physical Exam - Summary Physical Exam Summary: Appearance: The patient is well-nourished in no acute distress and in no acute pain. Skin: The skin is warm and dry and skin color reflects adequate perfusion. HEENT: The head is normocephalic and atraumatic. The pupils are equal and reactive. The conjunctivae are clear and without drainage. Nares are patent and without drainage. Mouth reveals moist mucous membranes and the throat is without erythema and exudate. The external ears are intact. The ear canals are patent and without drainage. The tympanic membranes are intact. Neck: the neck is supple with full range of motion and non-tender. There are no carotid bruits. There is no neck vein distension. Respiratory: Chest is non-tender. Increased AP diameter, decreased breath sounds , expiratory wheezes R worse than L. Cardiovascular: Heart is regular rate and rhythm. There is no murmur or rub auscultated. There is no peripheral edema and pulses are symmetrical and equal. Abdomen: The abdomen is soft and non-tender. There are normal bowel sounds heard in all four quadrants and there is no organomegaly palpated. Musculoskeletal: There is no back tenderness noted. Extremities are non-tender with full range of motion. There is good capillary refill. There is no peripheral edema or calf tenderness elicited. Neurological: Patient is alert and oriented to person, place and time. The patient has symmetrical motor strength in all four extremities. Cranial nerves are grossly intact. Deep tendon reflexes are symmetrical and equal in all four extremities. Psychiatric: The patient has an appropriate affect and does not exhibit any anxiety or depression. Triage Information Reviewed: Yes Vital Signs On Initial Exam: Initial Vitals Temp Pulse Resp BP Pulse Ox 97.8 F 87 22 120/65 95 05/28/18 10:37 05/28/18 10:37 05/28/18 10:37 05/28/18 10:37 05/28/18 10:37 Vital Signs Reviewed: Yes Diagnostics - Vital Signs Vital Signs Temp Pulse Resp BP Pulse Ox 05/28/18 10:37 97.8 F 87 22 120/65 95 - Laboratory Result Diagrams: 05/28/18 12:51 05/28/18 12:51 Lab Statement: Any lab studies that have been ordered have been reviewed, and results considered in the medical decision making process. - Radiology CXR Radiology Interpretation Completed By: Radiologist Summary of Radiographic Findings: IMPRESSION: #. Stigmata of obstructive lung disease. No acute pulmonary or cardiac process evident. ED provider has reviewed this report. - EKG 1129 Cardiac Rate: Tachycardia - 112 bpm EKG Rhythm: Sinus Tachycardia ST Segment: Normal Ectopy: None Summary of EKG Findings: No STEMI Re-Evaluation - Re-Evaluation 1 Re-Evaluation Time: 14:01 Change: Improved Comment: Discussing results with pt. Course/Dx - Course Course Of Treatment: Mr. Hernandez has been out of his inhalers for 3-4 days and got SOB. He received a neb in the ambulance and felt much improved on arrival. He , however, was still a bit tachypneic with diffuse wheezes and an increased E/ I. He got some steroids here and additional nebulizers and his workup was unremarkable. He insisted on leaving although his pulse ox was still only in the high 80s with activity but he felt much improved. - Diagnoses Provider Diagnoses: COPD exacerbation Discharge - Sign-Out/Discharge Documenting (check all that apply): Patient Departure - DC - Discharge Plan Condition: Stable Disposition: HOME Prescriptions: Albuterol HFA INHALER* [Ventolin HFA Inhaler*] 1 puff INH Q4H PRN #1 mdi PRN Reason: Sob/Wheezing Ipratropium HFA INHALER(NF) [Atrovent Hfa Inhaler(NF)] 1 puff INH Q6H #1 mdi Patient Education Materials: Albuterol (By breathing), Ipratropium (By breathing), COPD (Chronic Obstructive Pulmonary Disease) (ED) Referrals: Chago Landa MD [Primary Care Provider] - Additional Instructions: Please return to the ED if you experience new or worsening symptoms. Follow up with your primary care provider as scheduled on 06/01/17. - Billing Disposition and Condition Condition: STABLE Disposition: Home - Attestation Statements Document Initiated by Scribe: Yes Documenting Scribe: Lanny Ling Provider For Whom Maryibmarah is Documenting (Include Credential): Dr. Aleksandr Vick MD Scribe Attestation: I, Lanny Ling, scribed for Dr. Aleksandr Vick MD on 05/28/18 at 1732. Scribe Documentation Reviewed: Yes Provider Attestation: The documentation as recorded by the maryibmarah, Lanny Ling accurately reflects the service I personally performed and the decisions made by me, Dr. Aleksandr Vick MD Status of Scribe Document: Viewed
[2018-05-28 13:12] LABS: Hematocrit 47 % (42-52); Hemoglobin 15.7 g/dl (14.0-18.0); Mean Corpuscular HGB Conc 34 g/dl (31-36); Mean Corpuscular Hemoglobin 32 pg (27-31); Mean Corpuscular Volume 94 fL (80-94); Red Blood Count 4.98 10^6/ul (4.00-5.40); Red Cell Distribution Width 14 % (10.5-15); White Blood Count 8.9 10^3/ul (3.5-10.8)
[2018-05-28 13:13] LABS: ABS Basophils 0 10^3/ul (0-0.2); ABS Eosinophils 0.1 10^3/ul (0-0.6); ABS Lymphocytes 0.6 10^3/ul (1.0-4.8); ABS Monocytes 0.2 10^3/ul (0-0.8); ABS Nucleated RBC 0 10^3/ul; Eosinophil % 1.3 %; Lymphocyte % 6.4 %; Nucleated Red Blood Cells % 0
[2018-05-28 13:22] LABS: Albumin 3.9 g/dL (3.2-5.2); Albumin/Globulin Ratio 1.3 (1-3); BUN/Creatinine Ratio 25.5 (8-20); Calcium 9.5 mg/dL (8.6-10.3); EGFR Non-African American 49.5 (>60); Potassium 4.8 mmol/L (3.5-5.0); Total Bilirubin 0.7 mg/dL (0.2-1.0); Total Protein 6.9 g/dL (6.4-8.9)
[2018-05-28 14:52] VITALS: BP 109/56
== END | disposition home or self-care (01) ==
LOC: ED 10:33
DX: J44.1 Chronic obstructive pulmonary disease with (acute) exacerbation (principal); R06.02 Shortness of breath; Z87.891 Personal history of nicotine dependence
CPT/HCPCS: 36415; 71045; 80053; 83605; 83880; 84484; 85025; 87040; 93005; 96374; 99284; A9270-GY; J2930

== ENCOUNTER 2018-09-09 21:00 | Emergency (ER) | payer MEDICARE, MEDICAID ==
--- NOTE | 2018-09-09 21:54 | ED ---
Shortness of Breath - HPI Summary HPI Summary: The patient is an 83 year old male who is presenting to the [facility] via ambulance with a chief complaint of SOB. As per triage report, the patient was unable to receive his medication (albuterol). The patient denies fever. In the ambulance, the patient received a duoneb (1). He also has a PMHx of asthma and COPD. 1 L of O2 is taken at home and the patient states that he lives alone at home. He denies chest pain and all other forms of pain. SHx includes smoking which the patient states has been ongoing for a "very long time." Patient also reports of cough with phlegm. Symptoms aggravated by nothing. Symptoms alleviated by nothing. Patient also has a nebulizer at home. - History of Current Complaint Chief Complaint: EDShortnessOfBreath Time Seen by Provider: 09/09/18 21:26 Hx Obtained From: Patient Onset/Duration: Sudden Onset Aggrevating Factors: Nothing Alleviating Factors: Nothing Associated Signs & Symptoms: Cough (Productive) - Phlegm - Allergy/Home Medications Allergies/Adverse Reactions: Allergies Allergy/AdvReac Type Severity Reaction Status Date / Time No Known Allergies Allergy Verified 05/28/18 10:42 PMH/Surg Hx/FS Hx/Imm Hx Endocrine/Hematology History: Denies: Hx Diabetes, Hx Sickle Cell Disease Cardiovascular History: Reports: Hx Hypertension, Hx Valvular Heart Disease, Other Cardiovascular Problems/Disorders - HEART MURMUR, HAD FOR YRS Denies: Hx Pacemaker/ICD Respiratory History: Reports: Hx Asthma - RESCUE INHALER, Hx Chronic Obstructive Pulmonary Disease (COPD) Denies: Other Respiratory Problems/Disorders GI History: Denies: Other GI Disorders History: Reports: Other Problems/Disorders - urinary retention, bladder growths Denies: Hx Renal Disease Musculoskeletal History: Reports: Hx Arthritis Sensory History: Reports: Hx Cataracts - REMOVED Denies: Hx Contacts or Glasses, Hx Hearing Aid Opthamlomology History: Reports: Hx Cataracts - REMOVED Denies: Hx Contacts or Glasses Neurological History: Reports: Other Neuro Impairments/Disorders - OCCASIONAL DIZZINESS, NONE LATELY Psychiatric History: Denies: Hx Panic Disorder - Surgical History Surgery Procedure, Year, and Place: BLADDER RESECTION. 2013 BILATERAL [place]YES [place]AR[place] [facility] [place] [facility] [place] Anesthesia Reactions: No - Immunization History Date of Tetanus Vaccine: Unk Date of Influenza Vaccine: Unk Infectious Disease History: No Infectious Disease History: Denies: Traveled Outside the [place] in Last 30 Days - Family History Known Family History: Positive: Cardiac Disease, Hypertension, Other - Father had throat cancer - Social History Occupation: Retired Lives: Alone Alcohol Use: None Hx Substance Use: No Substance Use Type: Reports: None Hx Tobacco Use: Yes Smoking Status (MU): Former Smoker Amount Used/How Often: 1 PPD Length of Time of Smoking/Using Tobacco: 60 YEARS Have You Smoked in the Last Year: Yes Review of Systems Constitutional: Negative Eyes: Negative ENT: Negative Negative: Chest Pain Positive: Shortness Of Breath, Cough - Productive (phlegm) Gastrointestinal: Negative Genitourinary: Negative Musculoskeletal: Negative Skin: Negative Neurological: Negative Psychological: Normal All Other Systems Reviewed And Are Negative: Yes Physical Exam - Summary Physical Exam Summary: VITAL SIGNS: Reviewed. GENERAL: Patient is a well-developed and nourished (MALE) who is lying comfortable in the stretcher. Patient is not in any acute respiratory distress. HEAD AND FACE: No signs of trauma. No ecchymosis, hematomas or skull depressions. No sinus tenderness. EYES: PERRLA, EOMI x 2, No injected conjunctiva, no nystagmus. EARS: Hearing grossly intact. Ear canals and tympanic membranes are within normal limits. MOUTH: Oropharynx within normal limits. NECK: Supple, trachea is midline, no adenopathy, no JVD, no carotid bruit, no c- spine tenderness, neck with full ROM. CHEST: Symmetric, no tenderness at palpation LUNGS: Decreased breath sounds bilaterally; and Bilateral expiratory wheezes CVS: Regular rate and rhythm, S1 and S2 present, no murmurs or gallops appreciated. ABDOMEN: Soft, non-tender. No signs of distention. No rebound no guarding, and no masses palpated. Bowel sounds are normal. EXTREMITIES: FROM in all major joints, no edema, no cyanosis or clubbing. NEURO: Alert and oriented x 3. No acute neurological deficits. Speech is normal and follows commands. SKIN: Dry and warm Triage Information Reviewed: Yes Vital Signs On Initial Exam: Initial Vitals Pulse Resp Pulse Ox 56 25 99 09/09/18 21:05 09/09/18 21:05 09/09/18 21:05 Vital Signs Reviewed: Yes Diagnostics - Vital Signs Vital Signs Temp Pulse Resp BP Pulse Ox 04/12/19 21:06 98.6 F 57 20 169/98 97 09/09/18 21:05 56 25 99 - Laboratory Lab Statement: Any lab studies that have been ordered have been reviewed, and results considered in the medical decision making process. - Radiology Chest X-ray Radiology Interpretation Completed By: ED Physician Summary of Radiographic Findings: Chest X-ray Reveals Hyper inflation, no acute process as per ED Physician. Course/Dx - Course Course Of Treatment: The patient is a 83 year old male who is presenting to the [facility] with a chief complaint of SOB. The patient arrived via ambulance (given 1 duoneb) and states that he does not have his albuerol medication. Patient does have 1 L of O2 at home as well as a nebulizer. The patient's O2 stat was monitored and noted. Chest X-ray was taken in the ED course. Currently, the patient is beginning to feel better. The patient will be given prescription for his asthma and is recommended to use his nebulizer and inhaler at home. The patient will be discharged and is agreeable to this plan. The dx will be COPD. - Diagnoses Provider Diagnoses: COPD (chronic obstructive pulmonary disease) Discharge - Sign-Out/Discharge Documenting (check all that apply): Patient Departure Patient Received Moderate/Deep Sedation with Procedure: No - Discharge Plan Condition: Stable Disposition: HOME Referrals: Chago Landa MD [Primary Care Provider] - - Attestation Statements Document Initiated by Scribe: Yes Documenting Scribe: Delfino Beaver Provider For Whom Scribe is Documenting (Include Credential): Dr. Aria Cloud Attestation: Delfino Alvarado scribed for Dr. Bob Alexander on 09/09/18 at 2312. Status of Scribe Document: Ready
[2018-09-09] MEDS ORDERED: methylPREDNISolone 125 MG* 2 ML VIAL IV ONE (21:56)
[2018-09-09] MEDS ORDERED: Albuterol 2.5 MG/3 ML NEB.SOL* (0.083%) INH SCH ×2 (22:00→23:45)
[2018-09-09 23:49] VITALS: BP 128/76
== END 2018-09-09 23:48 | disposition home or self-care (01) ==
LOC: ED 21:00
DX: J44.9 Chronic obstructive pulmonary disease, unspecified (principal); I10 Essential (primary) hypertension; Z87.891 Personal history of nicotine dependence
CPT/HCPCS: 71045; 96374; 99284; J2930

== ENCOUNTER 2021-01-02 07:30 | Inpatient (IN) ==
[2021-01-02] MEDS ORDERED: Lactated Ringers 1000 ml BAG 1,000 ML IV ONE (08:04)
[2021-01-02 08:19] LABS: ABS Eosinophils 0.1 10^3/ul (0-0.6); ABS Lymphocytes 0.2 10^3/ul (1.0-4.8); ABS Neutrophils 11.8 10^3/ul (1.5-7.7); Eosinophil % 0.5 %; Hematocrit 47 % (42-52); Hemoglobin 16.1 g/dL (14.0-18.0); Lymphocyte % 1.6 %; Mean Corpuscular HGB Conc 34 g/dL (31-36); Mean Corpuscular Hemoglobin 33 pg (27-31); Mean Corpuscular Volume 96 fL (80-94); Mean Platelet Volume 8.5 fL (7.4-10.4); Platelet Count 152 10^3/uL (150-450); Red Blood Count 4.95 10^6 /uL (4.18-5.48); Red Cell Distribution Width 14 % (10-15); White Blood Count 13.1 10^3/uL (3.5-10.8)
[2021-01-02 08:31] LABS: INR 1.34 (0.86-1.15)
[2021-01-02 08:37] LABS: ALT 12 U/L (7-52); AST 18 U/L (13-39); Albumin 4.1 g/dL (3.2-5.2); Albumin/Globulin Ratio 1.4 (1-3); Alkaline Phosphatase 64 U/L (35-149); Anion Gap 2 mmol/L (2-11); Blood Urea Nitrogen 35 mg/dL (6-24); CO2 Carbon Dioxide 34 mmol/L (22-32); Chloride 102 mmol/L (101-111); EGFR African American 61.7 (>60); Globulin 2.9 g/dL (2-4); Glucose 124 mg/dL (70-100); Potassium 4.8 mmol/L (3.5-5.0); Sodium 138 mmol/L (135-145)
[2021-01-02 08:42] LABS: Troponin I 0.03 ng/mL (<0.03)
[2021-01-02] MEDS ORDERED: Azithromycin 500 mg/250 ml NS 500 MG/250 ML BAG IVPB ONE (09:29)
[2021-01-02] MEDS ORDERED: cefTRIAXone 1 gm/50 mL NS BAG 1 GM/50 ML BAG IV ONE (09:29)
[2021-01-02] MEDS ORDERED: Al Hydrox/Mg Hydrox/Simet LIQ 30 ML UDC PO PRN (10:50)
[2021-01-02] MEDS: Enoxaparin 40 MG/0.4 ML SYR SUBCUT SCH (11:08)
[2021-01-02 11:10] LABS: C Reactive Protein 4.21 mg/L (<8.01)
[2021-01-02 11:33] LABS: Troponin I 0.04 ng/mL (<0.03)
[2021-01-02] MEDS ORDERED: Iodixanol (CONTRAST) 320 MG/ML 100 ML SDV IV ONE (11:43)
[2021-01-02] MEDS ORDERED: Albuterol 2.5mg/3 ml (0.083%) NEB.SOLN INH SCH (12:00)
[2021-01-02] MEDS: NS 0.9% 1000 ml BAG 1,000 ML IV SCH ×2 (15:47→17:52)
[2021-01-02 16:03] LABS: Troponin I 0.05 ng/mL (<0.03)
[2021-01-02] MEDS: Albuterol/Ipratropium NEB.SOL (2.5/0.5 MG) 3 ML NEB.SOLN INH SCH (20:42)
[2021-01-02] MEDS: Mometasone 220 MCG MDI INH SCH (20:43)
[2021-01-02] MEDS ORDERED: NS 0.9% 1000 ml BAG 1,000 ML IV ONE (23:51)
[2021-01-03] MEDS: NS 0.9% 1000 ml BAG 1,000 ML IV SCH (01:02)
[2021-01-03] MEDS ORDERED: Vancomycin 1,000 MG in NS 0.9% 250 ml 250 ML IVPB ONE (01:34)
[2021-01-03] MEDS ORDERED: Piperacillin/Tazobac ADVAN 3.375 GM in NS 0.9% 100 ml BAG 100 ML IV ONE (01:37)
[2021-01-03] MEDS ORDERED: Vancomycin per Pharmacy 1 EA NOTE FOLLOW UP SCH (02:00)
[2021-01-03] MEDS ORDERED: Zosyn per Pharmacy NOTE FOLLOW UP SCH (02:00)
[2021-01-03] MEDS: Albuterol/Ipratropium NEB.SOL (2.5/0.5 MG) 3 ML NEB.SOLN INH SCH ×3 (02:27→12:55)
[2021-01-03 05:22] LABS: ABS Eosinophils 0.1 10^3/ul (0-0.6); ABS Lymphocytes 0.9 10^3/ul (1.0-4.8); ABS Monocytes 0.9 10^3/ul (0-0.8); ABS Neutrophils 8.4 10^3/ul (1.5-7.7); Hematocrit 38 % (42-52); Hemoglobin 12.9 g/dL (14.0-18.0); Lymphocyte % 8.6 %; Mean Corpuscular HGB Conc 34 g/dL (31-36); Mean Corpuscular Hemoglobin 33 pg (27-31); Mean Corpuscular Volume 98 fL (80-94); Mean Platelet Volume 8.4 fL (7.4-10.4); Platelet Count 110 10^3/uL (150-450); Red Blood Count 3.91 10^6 /uL (4.18-5.48); Red Cell Distribution Width 14 % (10-15); White Blood Count 10.3 10^3/uL (3.5-10.8)
[2021-01-03 05:32] LABS: Blood Urea Nitrogen 27 mg/dL (6-24); C Reactive Protein 107.11 mg/L (<8.01); CO2 Carbon Dioxide 32 mmol/L (22-32); Calcium 7.9 mg/dL (8.6-10.3); Chloride 107 mmol/L (101-111); EGFR African American 75.2 (>60); EGFR Non-African American 62.2 (>60); Glucose 101 mg/dL (70-100); Potassium 4.4 mmol/L (3.5-5.0); Sodium 139 mmol/L (135-145)
[2021-01-03] MEDS: Mometasone 220 MCG MDI INH SCH ×3 (05:43→22:26)
[2021-01-03] MEDS ORDERED: ZOSYN 3.375 GM Q8H per EXTENDED INFUSION IV SCH (06:00)
[2021-01-03] MEDS ORDERED: Lactated Ringers 1000 ml BAG 1,000 ML IV ONE (07:52)
[2021-01-03] MEDS: Fluticasone NASAL SPRAY 50MCG 16 gm SPRAY BTL BOTH NARES SCH (08:44)
[2021-01-03] MEDS: Aspirin EC 81 mg TAB.EC (enteric coated) PO SCH (08:45)
[2021-01-03] MEDS ORDERED: cefTRIAXone 1 gm/50 mL NS BAG 1 GM/50 ML BAG IVPB SCH (09:00)
[2021-01-03] MEDS ORDERED: Azithromycin 500 mg/250 ml NS 500 MG/250 ML BAG IVPB SCH (09:30)
[2021-01-03] MEDS: cefTRIAXone 1 gm/50 mL NS BAG 1 GM/50 ML BAG IVPB SCH (10:11)
[2021-01-03 10:24] LABS: Folate > 20.00 ng/mL (5.90-24.80); Vitamin B12 286 pg/mL (180-914)
[2021-01-03] MEDS: Enoxaparin 40 MG/0.4 ML SYR SUBCUT SCH (11:22)
[2021-01-03] MEDS: Azithromycin 500 mg/250 ml NS 500 MG/250 ML BAG IVPB SCH (11:23)
[2021-01-03] MEDS: Albuterol HFA INHALER 8 gm MDI INH PRN (23:36)
[2021-01-04] MEDS: Albuterol/Ipratropium NEB.SOL (2.5/0.5 MG) 3 ML NEB.SOLN INH PRN (03:09)
[2021-01-04 06:31] LABS: ABS Eosinophils 0.2 10^3/ul (0-0.6); ABS Lymphocytes 0.9 10^3/ul (1.0-4.8); ABS Monocytes 0.7 10^3/ul (0-0.8); ABS Neutrophils 5.1 10^3/ul (1.5-7.7); Eosinophil % 3.2 %; Hematocrit 37 % (42-52); Hemoglobin 12.2 g/dL (14.0-18.0); Lymphocyte % 13.2 %; Mean Corpuscular HGB Conc 33 g/dL (31-36); Mean Corpuscular Hemoglobin 33 pg (27-31); Mean Corpuscular Volume 99 fL (80-94); Mean Platelet Volume 8.6 fL (7.4-10.4); Platelet Count 98 10^3/uL (150-450); Red Blood Count 3.71 10^6 /uL (4.18-5.48); Red Cell Distribution Width 13 % (10-15); White Blood Count 6.9 10^3/uL (3.5-10.8)
[2021-01-04 06:38] LABS: Calcium 8.4 mg/dL (8.6-10.3); EGFR African American 75.2 (>60); EGFR Non-African American 62.2 (>60); Magnesium 2.1 mg/dL (1.9-2.7); Potassium 4.4 mmol/L (3.5-5.0)
[2021-01-04] MEDS: Mometasone 220 MCG MDI INH SCH ×2 (07:40→21:43)
[2021-01-04] MEDS: cefTRIAXone 1 gm/50 mL NS BAG 1 GM/50 ML BAG IVPB SCH (07:54)
[2021-01-04] MEDS: Fluticasone NASAL SPRAY 50MCG 16 gm SPRAY BTL BOTH NARES SCH (07:57)
[2021-01-04] MEDS: Aspirin EC 81 mg TAB.EC (enteric coated) PO SCH (07:57)
[2021-01-04] MEDS: Enoxaparin 40 MG/0.4 ML SYR SUBCUT SCH (12:06)
[2021-01-04] MEDS: Azithromycin 500 mg/250 ml NS 500 MG/250 ML BAG IVPB SCH (12:06)
[2021-01-05] MEDS: Albuterol HFA INHALER 8 gm MDI INH PRN (01:46)
[2021-01-05] MEDS: Albuterol/Ipratropium NEB.SOL (2.5/0.5 MG) 3 ML NEB.SOLN INH PRN (06:24)
[2021-01-05] MEDS: Mometasone 220 MCG MDI INH SCH (07:25)
[2021-01-05] MEDS: cefTRIAXone 1 gm/50 mL NS BAG 1 GM/50 ML BAG IVPB SCH (12:08)
[2021-01-05] MEDS: Aspirin EC 81 mg TAB.EC (enteric coated) PO SCH (12:08)
[2021-01-05] MEDS: Fluticasone NASAL SPRAY 50MCG 16 gm SPRAY BTL BOTH NARES SCH (12:09)
[2021-01-05] MEDS: Enoxaparin 40 MG/0.4 ML SYR SUBCUT SCH (12:12)
[2021-01-05] MEDS: Azithromycin 500 mg/250 ml NS 500 MG/250 ML BAG IVPB SCH (12:22)
[2021-01-05 14:06] VITALS: BP 121/56
== END 2021-01-05 13:45 | disposition home or self-care (01) | DRG 193 ==
LOC: ED 07:30 → MEDTELE 07:30 → OBSVTOIN 10:50 → MEDTELE 14:50
PROVIDERS: ADMIT Internal Medicine; ATTEND Student in an Organized Health Care Education/Training Program

== ENCOUNTER 2021-04-18 02:51 | Inpatient (IN) ==
[2021-04-18 04:04] LABS: ABS Eosinophils 0.1 10^3/ul (0-0.6); ABS Lymphocytes 0.2 10^3/ul (1.0-4.8); ABS Monocytes 0.7 10^3/ul (0-0.8); ABS Neutrophils 8.6 10^3/ul (1.5-7.7); Eosinophil % 0.5 %; Hematocrit 49 % (42-52); Hemoglobin 16.6 g/dL (14.0-18.0); Lymphocyte % 2.5 %; Mean Corpuscular HGB Conc 34 g/dL (31-36); Mean Corpuscular Hemoglobin 32 pg (27-31); Mean Corpuscular Volume 95 fL (80-94); Platelet Count 141 10^3/uL (150-450); Red Blood Count 5.13 10^6 /uL (4.18-5.48); Red Cell Distribution Width 13 % (10-15); White Blood Count 9.6 10^3/uL (3.5-10.8)
[2021-04-18] MEDS ORDERED: Lactated Ringers 1000 ml BAG 1,000 ML IV ONE (04:18)
[2021-04-18 04:25] LABS: Albumin 4.3 g/dL (3.2-5.2); Albumin/Globulin Ratio 1.5 (1-3); Calcium 10.3 mg/dL (8.6-10.3); Globulin 2.8 g/dL (2-4); Potassium 4.1 mmol/L (3.5-5.0); Total Bilirubin 1.6 mg/dL (0.2-1.0); Total Protein 7.1 g/dL (6.4-8.9)
[2021-04-18 04:27] LABS: Troponin I 0.01 ng/mL (<0.03)
[2021-04-18 04:48] LABS: TSH Ultra Thyroid Stim Horm 0.77 mcIU/mL (0.34-5.60)
[2021-04-18] MEDS ORDERED: Azithromycin 500 mg/250 ml NS 500 MG/250 ML BAG IVPB ONE (05:05)
[2021-04-18] MEDS ORDERED: cefTRIAXone 1 gm/50 mL NS BAG 1 GM/50 ML BAG IV ONE (05:05)
[2021-04-18] MEDS ORDERED: Al Hydrox/Mg Hydrox/Simet LIQ 30 ML UDC PO PRN (06:09)
[2021-04-18] MEDS ORDERED: Albuterol HFA INHALER 8 gm MDI INH PRN (06:13)
[2021-04-18 07:44] LABS: Influenza A Molecular Negative (Negative); Influenza B Molecular Negative (Negative)
[2021-04-18] MEDS: Enoxaparin 40 MG/0.4 ML SYR SUBCUT SCH (08:04)
[2021-04-18 08:48] LABS: Rapid COVID-19 Molecular Undetected (Undetected)
[2021-04-18] MEDS: SPIRIVA Respimat (tiotropium) 2.5 mcg/inh Inhaler INH SCH (09:30)
[2021-04-18] MEDS: Mometasone 220 MCG MDI INH SCH (09:30)
[2021-04-18] MEDS: Aspirin EC 81 mg TAB.EC (enteric coated) PO SCH (10:26)
[2021-04-18 12:13] LABS: Urine Appearance Clear; Urine Bilirubin Negative (Negative); Urine Blood Negative (Negative); Urine Color Yellow; Urine Glucose Negative (Negative); Urine Ketones Negative (Negative); Urine Nitrite Negative (Negative); Urine Protein Negative (Negative); Urine Specific Gravity 1.019 (1.002-1.030); Urine Urobilinogen Negative (Negative)
[2021-04-18] MEDS ORDERED: Lactated Ringers 500 ml BAG 500 ML IV ONE (21:51)
[2021-04-19] MEDS ORDERED: NS 0.9% 1000 ml BAG 1,000 ML IV SCH (00:15)
[2021-04-19] MEDS ORDERED: cefTRIAXone 1 gm/50 mL NS BAG 1 GM/50 ML BAG IVPB SCH (07:00)
[2021-04-19] MEDS: Mometasone 220 MCG MDI INH SCH ×2 (08:15)
[2021-04-19] MEDS: SPIRIVA Respimat (tiotropium) 2.5 mcg/inh Inhaler INH SCH (08:16)
[2021-04-19 08:45] LABS: ABS Lymphocytes 0.9 10^3/ul (1.0-4.8); ABS Monocytes 0.8 10^3/ul (0-0.8); ABS Neutrophils 11.3 10^3/ul (1.5-7.7); Hematocrit 42 % (42-52); Hemoglobin 14.1 g/dL (14.0-18.0); Lymphocyte % 6.6 %; Mean Corpuscular HGB Conc 34 g/dL (31-36); Mean Corpuscular Hemoglobin 32 pg (27-31); Mean Corpuscular Volume 96 fL (80-94); Mean Platelet Volume 8.1 fL (7.4-10.4); Platelet Count 130 10^3/uL (150-450); Red Blood Count 4.39 10^6 /uL (4.18-5.48); Red Cell Distribution Width 13 % (10-15)
[2021-04-19 09:03] LABS: Calcium 9.3 mg/dL (8.6-10.3); Magnesium 2.1 mg/dL (1.9-2.7); Potassium 4.3 mmol/L (3.5-5.0)
[2021-04-19] MEDS: Aspirin EC 81 mg TAB.EC (enteric coated) PO SCH (09:51)
[2021-04-19] MEDS: Enoxaparin 40 MG/0.4 ML SYR SUBCUT SCH ×2 (09:54→10:04)
[2021-04-19] MEDS: cefTRIAXone 1 gm/50 mL NS BAG 1 GM/50 ML BAG IVPB SCH (09:55)
[2021-04-19 13:27] LABS: C Reactive Protein 3.57 mg/L (<8.01)
[2021-04-20] MEDS: Mometasone 220 MCG MDI INH SCH ×2 (07:04→08:28)
[2021-04-20] MEDS: SPIRIVA Respimat (tiotropium) 2.5 mcg/inh Inhaler INH SCH (08:28)
[2021-04-20 08:42] VITALS: BP 122/51
[2021-04-20] MEDS: Aspirin EC 81 mg TAB.EC (enteric coated) PO SCH (09:21)
[2021-04-20] MEDS: Enoxaparin 40 MG/0.4 ML SYR SUBCUT SCH (09:22)
[2021-04-20] MEDS: cefTRIAXone 1 gm/50 mL NS BAG 1 GM/50 ML BAG IVPB SCH (09:22)
== END 2021-04-20 14:40 | disposition home or self-care (01) | DRG 194 ==
LOC: ED 02:51 → EDHOLD 06:09 → SUATTDRO 06:09 → EDHOLD 12:28 → MED 13:01
PROVIDERS: ADMIT Hospitalist; ATTEND Internal Medicine

== ENCOUNTER 2023-10-13 04:39 | Inpatient (IN) ==
[2023-10-13] MEDS: Dexamethasone IV 4 MG/ML VIAL 1 ml VIAL IV SLOW PU ONE (04:59)
[2023-10-13] MEDS: Albuterol/Ipratropium NEB.SOL (2.5/0.5 MG) 3 ML NEB.SOLN INH ONE ×2 (05:04→06:52)
[2023-10-13] MEDS: Lactated Ringers 1000 ml BAG 1,000 ML IV ONE ×2 (05:14→08:40)
[2023-10-13] MEDS: Ondansetron 4 mg VIAL 2 MG/ML 2 ml VIAL IV ONE (05:21)
[2023-10-13 05:26] LABS: PCO2 Arterial 70 mmHg (35-45); PO2 Arterial 73 mmHg (80-100)
[2023-10-13 06:17] LABS: Albumin 4.2 g/dL (3.2-5.2); Albumin/Globulin Ratio 1.3 (1-3); C Reactive Protein 3.9 mg/L (<8.01); Calcium 9.5 mg/dL (8.6-10.3); Creatinine, Serum 1.32 mg/dL (0.67-1.17); Globulin 3.2 g/dL (2-4); Potassium 4.9 mmol/L (3.5-5.0); Total Bilirubin 0.6 mg/dL (0.2-1.0); Total Protein 7.4 g/dL (6.4-8.9); eGFR CKD-EPI 51.6 (>60)
[2023-10-13] MEDS: Iodixanol (CONTRAST) 320 MG/ML 100 ML SDV IV ONE (06:43)
[2023-10-13] MEDS: cefTRIAXone 1 gm/50 mL D5W 1 GM/50 ML BAG IV ONE (07:13)
[2023-10-13 07:31] LABS: ABS Eosinophils 0.4 10^3/uL (0.0-0.5); ABS Lymphocytes 1.4 10^3/uL (1.0-4.8); ABS Monocytes 0.3 10^3/uL (0.0-1.1); ABS Neutrophils 6.6 10^3/uL (1.5-7.6); ABS Nucleated RBC 0.03 10^3/ul; Eosinophil % 4.2 %; Hematocrit 46.6 % (38-53); Hemoglobin 15.6 g/dL (13.2-16.3); Lymphocyte % 15.5 %; Mean Corpuscular Hgb Conc 33.6 g/dL (31-36); Mean Corpuscular Volume 95.1 fL (80-97); Mean Platelet Volume 8.2 fL (7.5-11.2); Nucleated Red Blood Cells % 0.4 %/100WBC (0.0-0.8); Platelet Count 190 10^3/uL (150-450); Red Blood Count 4.89 10^6/uL (4.06-5.63); Red Cell Distribution Width 13.5 % (12-17); White Blood Count 8.7 10^3/uL (3.6-10.2)
[2023-10-13] MEDS: DOXYcycline 100 MG in NS 0.9% 250 ml 250 ML IVPB ONE (07:50)
[2023-10-13 07:55] LABS: High Sensitivity Troponin 1 Hr 26 pg/mL (<20)
[2023-10-13] MEDS ORDERED: Albuterol HFA INHALER 8 gm MDI INH PRN (08:17)
[2023-10-13 08:23] LABS: PCO2 Arterial 67 mmHg (35-45); PO2 Arterial 81 mmHg (80-100)
[2023-10-13] MEDS: IPRATROPIUM INH SCH (09:30)
[2023-10-13] MEDS: Albuterol 2.5mg/3 ml (0.083%) NEB.SOLN INH SCH (09:30)
[2023-10-13] MEDS ORDERED: Albuterol/Ipratropium NEB.SOL (2.5/0.5 MG) 3 ML NEB.SOLN INH SCH (10:00)
[2023-10-13] MEDS: methylPREDNISolone SOD SUCC 40 mg/ml 1 ml VIAL IV SCH (10:01)
[2023-10-13] MEDS: Albuterol/Ipratropium NEB.SOL (2.5/0.5 MG) 3 ML NEB.SOLN INH SCH (11:30)
[2023-10-13] MEDS: Enoxaparin 40 MG/0.4 ML SYR SUBCUT SCH (13:21)
[2023-10-14] MEDS: Azithromycin 500 mg/250 ml NS 500 MG/250 ML BAG IVPB SCH (04:32)
[2023-10-14 04:48] LABS: ABS Lymphocytes 0.4 10^3/uL (1.0-4.8); ABS Monocytes 0.5 10^3/uL (0.0-1.1); ABS Neutrophils 10.2 10^3/uL (1.5-7.6); Hematocrit 37.3 % (38-53); Hemoglobin 12.6 g/dL (13.2-16.3); Lymphocyte % 3.8 %; Mean Corpuscular Hemoglobin 31.9 pg (27-33); Mean Corpuscular Hgb Conc 33.8 g/dL (31-36); Mean Corpuscular Volume 94.3 fL (80-97); Mean Platelet Volume 8.4 fL (7.5-11.2); Platelet Count 122 10^3/uL (150-450); Red Blood Count 3.96 10^6/uL (4.06-5.63); Red Cell Distribution Width 13.3 % (12-17); White Blood Count 11.2 10^3/uL (3.6-10.2)
[2023-10-14 05:26] LABS: Calcium 8.5 mg/dL (8.6-10.3); Creatinine, Serum 1.23 mg/dL (0.67-1.17); Magnesium 2.1 mg/dL (1.9-2.7); eGFR CKD-EPI 56.1 (>60)
[2023-10-14] MEDS: cefTRIAXone 1 gm/50 mL D5W 1 GM/50 ML BAG IV SCH (05:45)
[2023-10-14] MEDS ORDERED: Senna TAB 8.6 mg TAB PO PRN (07:59)
[2023-10-14] MEDS: Albuterol/Ipratropium NEB.SOL (2.5/0.5 MG) 3 ML NEB.SOLN INH SCH (14:07)
[2023-10-14] MEDS: Mometasone/Formoter 100/5 MDI INH SCH (14:10)
[2023-10-15 06:19] LABS: ABS Lymphocytes 0.3 10^3/uL (1.0-4.8); ABS Monocytes 0.6 10^3/uL (0.0-1.1); ABS Neutrophils 6.9 10^3/uL (1.5-7.6); ABS Nucleated RBC 0.01 10^3/ul; Hematocrit 36.7 % (38-53); Hemoglobin 12.2 g/dL (13.2-16.3); Lymphocyte % 4.4 %; Mean Corpuscular Hemoglobin 31.7 pg (27-33); Mean Corpuscular Hgb Conc 33.3 g/dL (31-36); Mean Corpuscular Volume 95.1 fL (80-97); Mean Platelet Volume 8.9 fL (7.5-11.2); Nucleated Red Blood Cells % 0.1 %/100WBC (0.0-0.8); Platelet Count 107 10^3/uL (150-450); Red Blood Count 3.86 10^6/uL (4.06-5.63); Red Cell Distribution Width 13.3 % (12-17); White Blood Count 7.8 10^3/uL (3.6-10.2)
[2023-10-15] MEDS: Polyethylene Glycol 3350 17 GM PACKET PO PRN (06:21)
[2023-10-15 07:04] LABS: Calcium 8.8 mg/dL (8.6-10.3); Creatinine, Serum 1.48 mg/dL (0.67-1.17); Magnesium 2.3 mg/dL (1.9-2.7); Potassium 5.4 mmol/L (3.5-5.0); eGFR CKD-EPI 44.9 (>60)
[2023-10-15 11:34] LABS: Creatinine, Serum 1.32 mg/dL (0.67-1.17); Potassium 5.1 mmol/L (3.5-5.0); eGFR CKD-EPI 51.6 (>60)
[2023-10-15] MEDS: Lactated Ringers 1000 ml BAG 1,000 ML IV ONE (14:49)
[2023-10-16 06:26] LABS: ABS Lymphocytes 0.6 10^3/uL (1.0-4.8); ABS Monocytes 0.7 10^3/uL (0.0-1.1); ABS Neutrophils 8.7 10^3/uL (1.5-7.6); Hematocrit 38.8 % (38-53); Hemoglobin 13.1 g/dL (13.2-16.3); Lymphocyte % 6.2 %; Mean Corpuscular Hemoglobin 31.7 pg (27-33); Mean Corpuscular Hgb Conc 33.6 g/dL (31-36); Mean Corpuscular Volume 94.2 fL (80-97); Mean Platelet Volume 8.8 fL (7.5-11.2); Platelet Count 146 10^3/uL (150-450); Red Blood Count 4.12 10^6/uL (4.06-5.63); Red Cell Distribution Width 13.4 % (12-17)
[2023-10-16] MEDS ORDERED: Albuterol/Ipratropium NEB.SOL (2.5/0.5 MG) 3 ML NEB.SOLN INH PRN (06:49)
[2023-10-16 07:02] LABS: Calcium 9.2 mg/dL (8.6-10.3); Creatinine, Serum 1.11 mg/dL (0.67-1.17); Magnesium 2.4 mg/dL (1.9-2.7); Potassium 4.7 mmol/L (3.5-5.0); eGFR CKD-EPI 63.5 (>60)
[2023-10-16 11:36] LABS: Urine Appearance Clear; Urine Bilirubin Negative (Negative); Urine Blood Trace (Negative); Urine Color Light-Yellow; Urine Glucose Negative (Negative); Urine Ketones Negative (Negative); Urine Nitrite Negative (Negative); Urine Protein Trace (Negative); Urine Urobilinogen Negative (Negative)
[2023-10-17 06:17] LABS: ABS Monocytes 0.5 10^3/uL (0.0-1.1); ABS Neutrophils 5.4 10^3/uL (1.5-7.6); ABS Nucleated RBC 0.01 10^3/ul; Eosinophil % 0.1 %; Hematocrit 37.7 % (38-53); Hemoglobin 12.9 g/dL (13.2-16.3); Lymphocyte % 14.8 %; Mean Corpuscular Hemoglobin 31.8 pg (27-33); Mean Corpuscular Hgb Conc 34.1 g/dL (31-36); Mean Corpuscular Volume 93.3 fL (80-97); Mean Platelet Volume 8.3 fL (7.5-11.2); Nucleated Red Blood Cells % 0.1 %/100WBC (0.0-0.8); Platelet Count 139 10^3/uL (150-450); Red Blood Count 4.05 10^6/uL (4.06-5.63); Red Cell Distribution Width 13.3 % (12-17)
[2023-10-17 06:34] LABS: Calcium 8.9 mg/dL (8.6-10.3); Creatinine, Serum 0.99 mg/dL (0.67-1.17); Magnesium 2.3 mg/dL (1.9-2.7); Potassium 4.4 mmol/L (3.5-5.0); eGFR CKD-EPI 72.8 (>60)
[2023-10-18 09:35] VITALS: BP 121/60
== END 2023-10-18 11:00 | disposition home or self-care (01) | DRG 871 ==
LOC: ED 04:39 → SUATTDRO 08:09 → EDHOLD 08:09 → ICU 08:58 → MED 10-14 09:05
PROVIDERS: ADMIT Internal Medicine Pulmonary Disease; ATTEND Hospitalist

== ENCOUNTER 2024-03-23 18:56 | Inpatient (IN) ==
[2024-03-23 20:49] LABS: Hematocrit 38.3 % (38-53); Hemoglobin 12.7 g/dL (13.2-16.3); Mean Corpuscular Hgb Conc 33.3 g/dL (31-36); Mean Corpuscular Volume 99.2 fL (80-97); Mean Platelet Volume 8.9 fL (7.5-11.2); Platelet Count 145 10^3/uL (150-450); Red Blood Count 3.86 10^6/uL (4.06-5.63); Red Cell Distribution Width 19.3 % (12-17); White Blood Count 7.5 10^3/uL (3.6-10.2)
[2024-03-23 21:13] LABS: Urine Appearance Clear; Urine Bilirubin 1+ (Negative); Urine Blood Negative (Negative); Urine Color Dark-Yellow; Urine Glucose Negative (Negative); Urine Ketones Negative (Negative); Urine Nitrite Negative (Negative); Urine Protein Trace (Negative); Urine Specific Gravity 1.021 (1.002-1.030); Urine Urobilinogen 2+ (Negative); Urine pH 5.5 (5.0-8.0)
[2024-03-23 21:13] LABS: INR 1.58 (0.85-1.14)
[2024-03-23 21:23] LABS: Urine Bacteria 1+ /HPF (Absent); Urine Red Blood Cell Trace(0-2/hpf) /HPF (0-Trace); Urine White Blood Cell 2+(11-20/hpf) /HPF (0-Trace)
[2024-03-23 21:27] LABS: C Reactive Protein 37.24 mg/L (<8.01); Calcium 9.3 mg/dL (8.6-10.3); Creatinine, Serum 1.62 mg/dL (0.67-1.17); Potassium 3.7 mmol/L (3.5-5.0); Total Bilirubin 6.3 mg/dL (0.2-1.0); eGFR CKD-EPI 40.3 (>60)
[2024-03-23 21:47] LABS: ABS Eosinophils 0.1 10^3/uL (0.0-0.5); ABS Lymphocytes 0.9 10^3/uL (1.0-4.8); ABS Monocytes 0.8 10^3/uL (0.0-1.1); ABS Neutrophils 5.5 10^3/uL (1.5-7.6); ABS Nucleated RBC 0.01 10^3/ul; Anisocytosis 1+; Eosinophil % 1.7 %; Lymphocyte % 12.1 %; Nucleated Red Blood Cells % 0.2 %/100WBC (0.0-0.8); Target Cells 1+
[2024-03-23 22:50] LABS: High Sensitivity Troponin 1 Hr 41 pg/mL (<20)
[2024-03-23] MEDS: Piperacillin/Tazobac 3.375 BAG 3.375 GM/100 ML BAG IV ONE (23:19)
[2024-03-23] MEDS: NS 0.9% 1000 ml BAG 1,000 ML IV ONE (23:19)
[2024-03-24] MEDS: cefTRIAXone 1 gm/50 mL D5W 1 GM/50 ML BAG IV ONE (02:17)
[2024-03-24] MEDS: Iodixanol 320 (CONTRAST) 100 ML SDV IV ONE (03:27)
[2024-03-24] MEDS ORDERED: Ondansetron ODT 4 mg TAB 4 MG TAB SL PRN (14:27)
[2024-03-24] MEDS ORDERED: Senna TAB 8.6 mg TAB PO PRN (14:27)
[2024-03-24] MEDS: cefTRIAXone 1 gm/50 mL D5W 1 GM/50 ML BAG IV SCH (15:32)
[2024-03-24] MEDS: Lactated Ringers 1000 ml BAG 1,000 ML IV ONE (16:01)
[2024-03-24] MEDS: Morphine ORAL CONCENTRATE 5 MG/0.25 ML ORAL.SYRIN SL PRN (23:02)
[2024-03-25] MEDS: Lactated Ringers 1000 ml BAG 1,000 ML IV SCH (01:33)
[2024-03-25] MEDS: Albuterol 2.5mg/3 ml (0.083%) NEB.SOLN INH ONE (17:17)
[2024-03-26] MEDS: Atropine 1% (ORAL/SL) 15 ML BTL SL PRN (10:49)
[2024-03-26] MEDS: Albuterol HFA INHALER 8 gm MDI INH PRN (11:55)
[2024-03-26 15:04] VITALS: BP 104/56
== END 2024-03-28 11:40 | disposition hospice, inpatient (51) | DRG 862 ==
LOC: ED 18:56 → EDHOLD 03-24 14:25 → MED 03-24 20:04
PROVIDERS: ADMIT Internal Medicine; ATTEND Internal Medicine